=== PATIENT | female | born 1945 | race Caucasian/White ===

== ENCOUNTER → 2018-03-29 10:19 | Outpatient (CLI) | payer MEDICARE, OTHER, SELFPAY | PROVIDERS: PCP Internal Medicine; Visit Provider Physician Assistant | DX: R19.7 Diarrhea, unspecified (principal) ==

== ENCOUNTER 2018-05-29 21:06 | Emergency (ER) | payer MEDICARE, OTHER, SELFPAY ==
[2018-05-29 21:12] VITALS: BP 233/108; PULSE 86; RESP 15; TEMP 36.9; O2SAT 100; BMI 18.6
--- NOTE | 2018-05-29 21:31 | ED.SKABFB ---
HPI - Skin/Abscess/Foreign Bdy <MADDY Jackson - Last Filed: 05/29/18 22:15> General Chief complaint: Skin/Abscess/Foreign Body Stated complaint: SINUS PROBLEM RASH ON FACE Time Seen by Provider: 05/29/18 21:13 Source: patient Mode of arrival: ambulatory Limitations: no limitations History of Present Illness HPI narrative: 72-year-old female with history hypertension is a nonsmoker here for pain of rash to the right side of her head along the forehead into the right orbit area. She knows this been there for the last couple of days. She reports the rash has a burning sensation to it and is painful. She denies any drainage from the rash. No fever there is no chills Or fevers. She has any other concerns or complaints this time. Positive p.o. intake. No nausea or vomiting. she does report having chickenpox as a child MD complaint: rash Related Data Home Medications Medication Instructions Recorded Confirmed CALCIUM CARBONATE/VITAMIN D3 1 tab PO #0 11/17/12 05/28/18 (Calcium 600 + Vit D 400 Tablet) aspirin 81 mg PO QDAY #0 11/17/12 05/28/18 carvedilol [Coreg] 12.5 mg PO BID #0 11/17/12 05/28/18 estradiol [Estrace] 0.01 % VAGINAL #42.5 gm 11/17/12 05/28/18 losartan [Cozaar] 100 mg #0 08/22/17 05/28/18 Previous Rx's Medication Instructions Recorded acyclovir 800 mg PO 5XD #35 tab 05/29/18 Allergies Allergy/AdvReac Type Severity Reaction Status Date / Time Opioids - Morphine Analogues AdvReac Mild N/V Verified 05/29/18 21:12 [OPIOIDS - MORPHINE ANALOGUES] Review of Systems <MADDY Jackson - Last Filed: 05/29/18 22:15> Constitutional Denies chills, Denies fever(s), Denies lethargy and Denies weakness Eyes Denies change in vision, Denies eye discharge, Denies irritation and Denies loss of vision ENT Ears, Nose, Mouth, and Throat: Denies change in voice, Denies neck pain and Denies sore throat Cardiovascular Denies chest pain, Denies irregular heart rhythm, Denies lightheadedness, Denies palpitations, Denies dyspnea, Denies dyspnea on exertion and Denies orthopnea Respiratory Denies cough, Denies dyspnea, Denies dyspnea on exertion and Denies wheezing Gastrointestinal Gastrointestinal: Denies abdominal pain, Denies change in bowel habits, Denies diarrhea, Denies nausea and Denies vomiting Genitourinary Denies hematuria, Denies flank pain, Denies urinary incontinence and Denies urinary urgency Musculoskeletal Denies neck pain Integumentary/Breasts Comments: rash to right face and forehead Neurologic Denies confusion, Denies loss of vision and Denies weakness Psychiatric Denies anxiety, Denies confusion, Denies depression, Denies homicidal ideation and Denies suicidal ideation Endocrine Denies palpitations Allergic/Immunologic Denies wheezing Exam <MADDY Jackson - Last Filed: 05/29/18 22:15> Initial Vital Signs Initial Vital Signs: Vital Signs Temperature 98.4 F 05/29/18 21:12 Pulse Rate 86 05/29/18 21:12 Respiratory Rate 15 05/29/18 21:12 Blood Pressure 233/108 H 05/29/18 21:12 Pulse Oximetry 100 05/29/18 21:12 Const General: cooperative and well developed Nutritional Appearance: well nourished Orientation: alert, awake, oriented x3 and not confused HENMO Mouth: oral mucosae normal and moist mucous membranes Eyes Conjunctivae: conjunctivae normal Sclera: sclerae normal Pupils: PERRL EOM: EOM intact bilaterally Other: fluorescein exam was obtained and was negative for any corneal erosion no dendritic lesions Neck Neck: normal visual inspection, trachea midline, No lymphadenopathy, No midline deformity and No JVD Lymphatic: No lymphedema Chest Chest: normal inspection of the chest Resp Effort & Inspection: normal respiratory effort, able to speak in complete sentences, no respiratory distress and no use of accessory muscles Auscultation: clear to auscultation bilaterally, no rales, no rhonchi and no wheezes Cardio Rate: regular rate Rhythm: regular rhythm Heart Sounds: no click, no gallops, no murmurs and no rubs Pulses: normal peripheral pulses Skin General: jaundice Other: vesicular rash to the right side of the face forehead and into the scalp. no open lesions. <Steven Echavarria DO - Last Filed: 05/29/18 22:56> Initial Vital Signs Initial Vital Signs: Vital Signs Temperature 98.4 F 05/29/18 21:12 Pulse Rate 86 05/29/18 21:12 Respiratory Rate 15 05/29/18 21:12 Blood Pressure 233/108 H 05/29/18 21:12 Pulse Oximetry 100 05/29/18 21:12 Course <MADDY Jackson - Last Filed: 05/29/18 22:15> Orders Ordered: Discontinued Medications Proparacaine HCl (Parcaine 0.5% Ophth Michelle) 1 drops EYE-RIGHT NOW ONE Stop: 05/29/18 21:30 Last Admin: 05/29/18 21:32 Dose: 1 drop Vital Signs - 8 hr 05/29/18 21:12 05/29/18 21:57 Temperature 98.4 F Pulse Rate 86 Respiratory Rate 15 Blood Pressure 233/108 H 202/108 H Pulse Oximetry 100 <Steven Echavarria DO - Last Filed: 05/29/18 22:56> Orders Ordered: Discontinued Medications Proparacaine HCl (Parcaine 0.5% Ophth Michelle) 1 drops EYE-RIGHT NOW ONE Stop: 05/29/18 21:30 Last Admin: 05/29/18 21:32 Dose: 1 drop Vital Signs - 8 hr 05/29/18 21:12 05/29/18 21:57 Temperature 98.4 F Pulse Rate 86 Respiratory Rate 15 Blood Pressure 233/108 H 202/108 H Pulse Oximetry 100 MDM - Skin/Abscess/Foreign Bdy <MADDY Jackson - Last Filed: 05/29/18 22:15> MDM Narrative Medical decision making narrative: vescicular rash to the right side of face forehead and scalp over to a midline forehead and into the bridge of the nose does not cross the midline. Signs and symptoms present as shingles to the face. Fluorescein exam was obtained no involvement of the eyeball is appreciated at this time. She is placed on acyclovir. Follow up with primary care provider next week. [id number] ibuprofen as needed for any discomfort. For any worsening symptoms return to the emergency room. Discharge Plan Departure Patient Disposition: Home Clinical Impression: Herpes zoster Discharge Date/Time: 05/29/18 21:55 Interventions: ED Discharge Assessment Last Done: 05/29/18 21:57 Instructions: DI for Shingles Activity Restrictions/Additional Instructions: signs and symptoms presents as shingles to the right face. UR placed on antiviral medication called acyclovir use as directed. Follow up with her primary care provider next week. Use [id number] ibuprofen as needed for any discomfort. For any worsening symptoms return to the emergency room. Prescriptions: New acyclovir 800 mg tablet 800 mg PO 5XD Qty: 35 RF: 0 No Action carvedilol [Coreg] 12.5 MG tablet 12.5 mg PO BID Qty: 0 RF: 0 aspirin 81 MG tablet,delayed release (DR/EC) 81 mg PO QDAY Qty: 0 RF: 0 estradiol [Estrace] 0.01 % cream 0.01 % Vaginal Qty: 42.5 RF: 0 CALCIUM CARBONATE/VITAMIN D3 (Calcium 600 + Vit D 400 Tablet) 1 tab PO Qty: 0 RF: 0 losartan [Cozaar] 100 MG tablet 100 mg Qty: 0 RF: 0 Referrals: Verona Ocampo MD [Primary Care Provider] - <Steven Echavarria DO - Last Filed: 05/29/18 22:56> Cosign ED Attending Candyature Attestation: I was available for consultation during this patient's emergency department encounter
[2018-05-29] MEDS: PROPARACAINE 0.5% OPHTH SOL 1 DROPS EYE-RIGHT (21:32)
[2018-05-29 21:57] VITALS: BP 202/108
== END 2018-05-29 21:55 | disposition home or self-care (01) ==
PROVIDERS: Emergency Provider Nurse Practitioner Family; PCP Internal Medicine
DX: B02.9 Zoster without complications (principal)
CPT/HCPCS: 99282

== ENCOUNTER → 2019-04-21 14:32 | Outpatient (CLI) | payer MEDICARE, OTHER, SELFPAY ==
--- NOTE | 2019-04-21 14:37 | DI.MG.S_ITS ---
BILATERAL DIGITAL SCREENING MAMMOGRAM 3D/2D WITH CAD: 04/21/2019 CLINICAL: Routine screening. Comparison is made to exams dated: 04/14/2018 mammogram, 04/09/2017 mammogram, and 04/08/2016 mammogram - [facility]. The tissue of both breasts is predominantly fatty. Current study was also evaluated with a Computer Aided Detection (CAD) system. There are benign vascular calcifications in both breasts. No significant masses, calcifications, or other findings are seen in either breast. There has been no significant interval change. IMPRESSION: There is no mammographic evidence of malignancy. A 1 year screening mammogram is recommended. This exam was interpreted at Station ID: [id number]. NOTE: For mammograms, a report in lay terms will be sent to the patient. Approximately 15% of breast malignancies will not be visualized mammographically. In the management of a palpable breast mass, a negative mammogram must not discourage biopsy of a clinically suspicious lesion. Electronically Signed By: Shiv quigley/kaylee:04/21/2019 16:32:49 letter sent: Normal Exam ACR BI-RADS Category 2: Benign Finding(s) 3342F
== END ==
PROVIDERS: PCP Student in an Organized Health Care Education/Training Program; Visit Provider Student in an Organized Health Care Education/Training Program
DX: Z12.31 Encounter for screening mammogram for malignant neoplasm of breast (principal); M81.0 Age-related osteoporosis without current pathological fracture; Z78.0 Asymptomatic menopausal state; Z91.89 Other specified personal risk factors, not elsewhere classified
CPT/HCPCS: 77063; 77067; 77080

== ENCOUNTER → 2019-05-08 09:17 | Outpatient (CLI) | payer MEDICARE, OTHER, SELFPAY ==
[2019-05-08 09:57] LABS: Alanine Aminotransferase 14 IU/L (<35); Albumin 4.5 g/dL (3.5-5.0); Albumin Globulin Ratio 1.4 (1.0-2.8); Alkaline Phosphatase 93 U/L (38-126); Aspartate Aminotransferase 30 IU/L (14-36); BUN Creatinine Ratio 15.7 (6-22); Bilirubin Total 0.7 mg/dL (0.2-1.3); Blood Urea Nitrogen 11 mg/dL (7-17); Calcium 9.6 mg/dL (8.4-10.2); Carbon Dioxide 27 mmol/L (22-32); Chloride 101 mmol/L (98-107); Cholesterol 251 mg/dL (140-199); Estimated Glomerular Filt Rate > 60.0 mL/min (>60); Globulin 3.3 g/dL (1.7-4.1); Glucose 128 mg/dL (80-110); HDL Cholesterol 40 mg/dL (40-60); HEMOLYSIS < 15 (0-50); LDL Cholesterol Calculated 182 mg/dL (<100); Potassium 4.6 mmol/L (3.4-5.1); Sodium 137 mmol/L (137-145); Total Protein 7.8 g/dL (6.3-8.2); Triglycerides 145 mg/dL (35-150)
[2019-05-08 11:04] LABS: Vitamin D 25 Hydroxy (D3) 45.3 ng/mL (30.0-100.0)
== END ==
PROVIDERS: PCP Student in an Organized Health Care Education/Training Program; Visit Provider Student in an Organized Health Care Education/Training Program
DX: E55.9 Vitamin D deficiency, unspecified (principal); Z78.0 Asymptomatic menopausal state; Z91.89 Other specified personal risk factors, not elsewhere classified; E78.2 Mixed hyperlipidemia; G43.909 Migraine, unspecified, not intractable, without status migrainosus; I10 Essential (primary) hypertension; Z79.899 Other long term (current) drug therapy
CPT/HCPCS: 36415; 80053; 80061; 82306

== ENCOUNTER 2020-07-01 13:47 | Inpatient (IN) | payer MEDICARE, OTHER, SELFPAY ==
[2020-07-01] VITALS (33 sets, daily range): BP systolic 134–202; BP diastolic 69–101; PULSE 67–85; RESP 11–22; TEMP 36.1–37.3; O2SAT 94–100; BMI 17.8
--- NOTE | 2020-07-01 14:04 | DI.CT.S_ITS ---
PROCEDURE: CT STROKE INDICATIONS: CODE STROKE TECHNIQUE: Noncontrast 4.5 mm thick angled axial sections acquired from the foramen magnum to the vertex, with coronal reformats. For radiation dose reduction, the following was used: automated exposure control, adjustment of mA and/or kV according to patient size. COMPARISON: [facility], , BRAIN WITHOUT CONTRAST, 05/13/2017, 14:57. FINDINGS: Image quality: Excellent. CSF spaces: Basal cisterns are patent. No extra-axial fluid collections. The ventricles are symmetric in size and shape. Brain: No intracranial bleeds or masses. There is cerebral volume loss for age, with resultant ventricular and sulcal prominence. There are periventricular and deep white matter chronic small vessel ischemic changes. There is intracranial internal carotid artery atherosclerosis. 13 mm low-attenuation focus within the left basal ganglia. This was not present in 2017. Skull and face: Calvarium and visualized facial bones appear intact, without suspicious lesions. Sinuses: Visualized sinuses and mastoids are clear. IMPRESSION: 1. Low-attenuation focus within the left basal ganglia, new compared to 2017. Appearance is suggestive of ischemia, although not classic appearing for chronic ischemia. Recommend correlation time on a patient's symptoms, as appearance is more suggestive of subacute timeline. MRI is recommended for further evaluation to further delineating characterize. The above findings were discussed with Dr. Alice Morris on 07/01/2020 at 2:32 p.m.. This study fulfills neurological imaging criteria for inclusion or exclusion of acute stroke therapies based on available published neurological guidelines. Dictated by: Susan Fernandez M.D. on 07/01/2020 at 14:32 Approved by: Susan Fernandez M.D. on 07/01/2020 at 14:40
--- NOTE | 2020-07-01 14:04 | DI.RAD.S_ITS ---
PROCEDURE: XR CHEST 1V INDICATIONS: Possible stroke TECHNIQUE: One view of the chest was acquired. COMPARISON: None. FINDINGS: Surgical changes and devices: None. Lungs and pleura: Lungs are clear. No pleural effusions or pneumothorax. Mediastinum: Mediastinal contours appear normal. Heart size is normal. Bones and chest wall: No suspicious bony lesions. Overlying soft tissues appear unremarkable. IMPRESSION: No acute pulmonary process. Dictated by: Susan Fernandez M.D. on 07/01/2020 at 14:40 Approved by: Susan Fernandez M.D. on 07/01/2020 at 14:46
--- NOTE | 2020-07-01 14:09 | ED.NEUROSD ---
HPI - Neuro Symptoms/Deficit General Chief Complaint: Neuro Symptoms/Deficit Stated Complaint: SYNCOPE Time Seen by Provider: 07/01/20 14:05 History of Present Illness HPI Narrative: 74-year-old woman with a history of hypertension was standing in front of her microwave at noon today when she had a syncopal episode and slumped to the floor. Her daughter was there and did not note seizure activity or acute head injury. She has no previous history of cardiac disease or stroke. Has been in her usual state of health until events of today. Daughter reports no recent fevers, cough, chest pain, weakness. When daughter went to check on her on the floor she seemed confused but was able to get up and stand. Daughter brought her into the emergency department with complaints of continued confusion. On Anticoagulants: No Related Data Home Medications Medication Instructions Recorded Confirmed losartan 25 mg PO DAILY 07/01/20 07/01/20 Previous Rx's Medication Instructions Recorded carvedilol 12.5 mg tablet 12.5 mg PO BID #180 tab 06/22/20 Allergies Allergy/AdvReac Type Severity Reaction Status Date / Time [id number]-[id number] Reductase AdvReac Intermediate muscle Verified 06/22/20 11:33 Inhibitor pain, nausea Opioids - Morphine Analogues AdvReac Mild N/V Verified 06/22/20 11:33 [OPIOIDS - MORPHINE ANALOGUES] Review of Systems Review of Systems Narrative: Remainder of review of systems including constitutional, ENT, cardiovascular, respiratory, GI, , musculoskeletal, skin, neurologic and psychiatric systems reviewed and are unremarkable except as noted in HPI. Hematologic/Lymphatic On Anticoagulants: No Patient History Medical History Anxiety Chicken pox Measles Migraines Recurrent sinusitis Vertigo Surgical History History of tonsillectomy Status post breast biopsy Social History Smoking Status: Never smoker Smoking Status: Never smoker alcohol intake frequency: 0-2 drinks per day Substance Use Type: does not use Exam Narrative Exam Narrative: General: Healthy appearing, in no acute distress. Confused and unable to participate in history taking HEENT: Moist mucous membranes, normal sclera with reactive pupils, Neck: No JVD, supple Respiratory: Lungs are clear to auscultation, no wheezing no rales no rhonchi. Full and symmetrical air movement Cardiac: Regular rate and rhythm no murmurs no bruits Abdomen: Soft nontender good bowel tones, no flank pain Skin: Warm and dry, no rashes Neurologic: Confused, flattening of the right nasal labial fold, mild aphasia without significant dysarthria. She is too confused to fully evaluate visual dumont. There is no sensory or obvious asymmetric motor deficits Extremities: No trauma, well perfused Psych: Cooperative, appropriate insight and affect NIH Stroke Scale/Score (NIHSS) from [facility] [email or web address] on 07/01/2020 RESULT SUMMARY: 5 points NIH Stroke Scale INPUTS: 1A: Level of consciousness ?> 1 = Arouses to minor stimulation 1B: Ask month and age ?> 1 = 0 questions right 1C: 'Blink eyes' & 'squeeze hands' ?> 0 = Performs both tasks 2: Horizontal extraocular movements ?> 0 = Normal 3: Visual dumont ?> 0 = No visual loss 4: Facial palsy ?> 1 = Minor paralysis (flat nasolabial fold, smile asymmetry) 5A: Left arm motor drift ?> 0 = No drift for 10 seconds 5B: Right arm motor drift ?> 0 = No drift for 10 seconds 6A: Left leg motor drift ?> 0 = No drift for 5 seconds 6B: Right leg motor drift ?> 0 = No drift for 5 seconds 7: Limb Ataxia ?> 0 = No ataxia 8: Sensation ?> 0 = Normal; no sensory loss 9: Language/aphasia ?> 0 = Mild-moderate aphasia: some obvious changes, without significant limitation 10: Dysarthria ?> 0 = Normal 11: Extinction/inattention ?> 0 = No abnormality =4 2:[address] improved LOC =3 Initial Vital Signs Initial Vital Signs: Vital Signs Temperature 97.6 F 07/01/20 14:03 Pulse Rate 75 07/01/20 14:03 Respiratory Rate 16 07/01/20 14:03 Blood Pressure 202/98 H 07/01/20 14:03 Pulse Oximetry 97 07/01/20 14:03 Course Orders Ordered: ED Orders 07/01/20 14:04 CT Stroke Stat XR chest 1V Stat EKG-12 Lead Stat 07/01/20 14:05 Complete Blood Count AUTO DIFF Stat Comprehensive Metabolic Panel Stat Partial Thromboplastin Time Stat Prothrombin Time INR Stat Troponin & CK Cardiac Panel Stat 07/01/20 14:13 CT angio head and neck Stat 07/01/20 15:10 COVID19 Stat 07/01/20 16:00 UA Complete [Urinalysis and Microscopic] Stat Urine Drug Screen, Rapid Stat Discontinued Medications Alteplase, Recombinant (Alteplase 100 Mg Vial) 43.8 mg IV NOW ONE Stop: 07/01/20 14:46 Last Admin: 07/01/20 15:05 Dose: Not Given Documented by: GABRIELLE Vital Signs Vital signs: Vital Signs - 8 hr 07/01/20 14:03 07/01/20 14:06 07/01/20 14:12 Temperature 97.6 F Pulse Rate 75 75 75 Respiratory Rate 16 16 Blood Pressure 202/98 H Pulse Oximetry 97 100 07/01/20 14:29 07/01/20 14:30 07/01/20 14:40 Temperature Pulse Rate 71 73 72 Respiratory Rate 18 Blood Pressure 192/88 H 182/79 H 187/87 H Pulse Oximetry 100 100 99 07/01/20 14:45 07/01/20 14:50 07/01/20 15:00 Temperature Pulse Rate 78 71 68 Respiratory Rate 22 22 18 Blood Pressure 185/97 H 165/90 H Pulse Oximetry 98 99 07/01/20 15:10 07/01/20 15:15 07/01/20 15:20 Temperature Pulse Rate 67 69 70 Respiratory Rate 17 15 22 Blood Pressure 164/91 H 151/83 H Pulse Oximetry 99 97 98 07/01/20 15:30 07/01/20 15:40 07/01/20 15:45 Temperature Pulse Rate 70 70 70 Respiratory Rate 14 11 L 13 Blood Pressure 167/91 H 170/92 H Pulse Oximetry 97 97 97 07/01/20 15:50 07/01/20 16:05 07/01/20 16:06 Temperature Pulse Rate 73 73 73 Respiratory Rate 12 19 12 Blood Pressure 169/93 H 194/94 H Pulse Oximetry 97 94 99 07/01/20 16:10 07/01/20 16:15 07/01/20 16:20 Temperature Pulse Rate 71 72 70 Respiratory Rate 14 13 Blood Pressure 176/94 H 170/87 H Pulse Oximetry 100 99 99 07/01/20 16:30 07/01/20 16:40 01/16/21 16:45 Temperature Pulse Rate 85 72 Respiratory Rate Blood Pressure 166/90 H 164/98 H Pulse Oximetry 98 98 07/01/20 16:50 07/01/20 17:00 Temperature Pulse Rate 70 70 Respiratory Rate Blood Pressure 165/93 H 154/85 H Pulse Oximetry 98 97 MDM - Neuro Symptoms/Deficit Medical Records Attestation: I reviewed the patient's medical records. Lab Data Attestation: I reviewed the patient's lab results. Result diagrams: 07/01/20 14:05 07/01/20 14:05 Labs: Lab Results 07/01/20 07/01/20 07/01/20 Range/Units 14:05 14:05 14:05 WBC 6.2 (4.5-11.0) X10^3/uL RBC 4.49 (4.0-5.2) X10^6/uL Hgb 13.0 (12.0-16.0) g/dL Hct 39.6 (36-46) % MCV 88.4 (80-100) fL MCH 29.0 (26-34) PG MCHC 32.8 (30-36) % RDW 15.5 H (11.6-14.8) % Plt Count 246 (150-400) X10^3/uL Neut % (Auto) 64.1 (50-75) % Lymph % (Auto) 23.2 L (25-40) % [place] % (Auto) 11.5 (3-14) % Eos % (Auto) 0.5 L (2-4) % Baso % (Auto) 0.7 (0-2) % Neut # (Auto) 3900 (1943-6722) /uL Lymph # (Auto) 1400 (4549-8394) /uL [place] # (Auto) 700 (0-900) /uL Eos # (Auto) 0 (0-450) /uL Baso # (Auto) 0 (0-100) /uL PT 13.4 H (10.1-12.7) SECONDS INR 1.2 (0.9-1.3) APTT 28 (26.4-36.2) SECONDS Sodium 136 L (137-145) mmol/L Potassium 3.7 (3.4-5.1) mmol/L Chloride 101 (98-107) mmol/L Carbon Dioxide 30 (22-32) mmol/L BUN 18 H (7-17) mg/dL Creatinine 0.86 (0.52-1.04) mg/dL Estimated GFR > 60.0 (>60) mL/min BUN/Creatinine Ratio 20.9 (6-22) Glucose 147 H (80-110) mg/dL Calcium 9.5 (8.4-10.2) mg/dL Total Bilirubin 0.9 (0.2-1.3) mg/dL AST 40 H (14-36) IU/L ALT 22 (<35) IU/L Alkaline Phosphatase 97 (38-126) U/L Total Creatine Kinase 162 H (30-135) U/L CK-MB (CK-2) 1.54 (<2.37) ng/mL CK-MB (CK-2) Rel Index 1.0 L (1.5-5.0) % Troponin I 0.014 (0.01-0.034) ng/mL Total Protein 8.4 H (6.3-8.2) g/dL Albumin 4.7 (3.5-5.0) g/dL Globulin 3.7 (1.7-4.1) g/dL Albumin/Globulin Ratio 1.3 (1.0-2.8) Urine Color Urine Appearance Urine pH (4.5-8.0) Ur Specific [place] (1.000-1.035) Urine Protein (Negative) Urine Glucose (UA) (Negative) g/dL Urine Ketones (NEGATIVE) Urine Occult Blood (Negative) Urine Nitrate (Negative) Urine Bilirubin (NEGATIVE) Urine Urobilinogen (0.2) E.U./dL Ur Leukocyte Esterase (NEGATIVE) Urine RBC (0-5/HPF) Urine WBC (0-5/HPF) Ur Squamous Epith Cells (0-5/HPF) Urine Bacteria (None) Hyaline Casts (None) Ur Culture Indicated? U Opiates 300ng/mL cut (Negative) Ur Oxycodone Screen (Negative) Urine Methadone Screen (Negative) Ur Barbiturates Screen (Negative) U Tricyclic Antidepress (Negative) Ur Phencyclidine Scrn (Negative) Ur Amphetamines Screen (Negative) U Methamphetamines Scrn (Negative) Ur MDMA Scrn (Ecstasy) (Negative) U Benzodiazepines Scrn (Negative) Urine Cocaine Screen (Negative) U Marijuana (THC) Screen (Negative) SARS-CoV-2 (PCR) (Negative) 07/01/20 07/01/20 07/01/20 Range/Units 15:10 16:00 16:00 WBC (4.5-11.0) X10^3/uL RBC (4.0-5.2) X10^6/uL Hgb (12.0-16.0) g/dL Hct (36-46) % MCV (80-100) fL MCH (26-34) PG MCHC (30-36) % RDW (11.6-14.8) % Plt Count (150-400) X10^3/uL Neut % (Auto) (50-75) % Lymph % (Auto) (25-40) % [place] % (Auto) (3-14) % Eos % (Auto) (2-4) % Baso % (Auto) (0-2) % Neut # (Auto) (0959-4041) /uL Lymph # (Auto) (7976-6951) /uL [place] # (Auto) (0-900) /uL Eos # (Auto) (0-450) /uL Baso # (Auto) (0-100) /uL PT (10.1-12.7) SECONDS INR (0.9-1.3) APTT (26.4-36.2) SECONDS Sodium (137-145) mmol/L Potassium (3.4-5.1) mmol/L Chloride (98-107) mmol/L Carbon Dioxide (22-32) mmol/L BUN (7-17) mg/dL Creatinine (0.52-1.04) mg/dL Estimated GFR (>60) mL/min BUN/Creatinine Ratio (6-22) Glucose (80-110) mg/dL Calcium (8.4-10.2) mg/dL Total Bilirubin (0.2-1.3) mg/dL AST (14-36) IU/L ALT (<35) IU/L Alkaline Phosphatase (38-126) U/L Total Creatine Kinase (30-135) U/L CK-MB (CK-2) (<2.37) ng/mL CK-MB (CK-2) Rel Index (1.5-5.0) % Troponin I (0.01-0.034) ng/mL Total Protein (6.3-8.2) g/dL Albumin (3.5-5.0) g/dL Globulin (1.7-4.1) g/dL Albumin/Globulin Ratio (1.0-2.8) Urine Color Yellow Urine Appearance Clear Urine pH 7.0 (4.5-8.0) Ur Specific [place] <=1.005 (1.000-1.035) Urine Protein Negative (Negative) Urine Glucose (UA) Negative (Negative) g/dL Urine Ketones Negative (NEGATIVE) Urine Occult Blood Trace-lysed (Negative) Urine Nitrate Negative (Negative) Urine Bilirubin Negative (NEGATIVE) Urine Urobilinogen 0.2 (0.2) E.U./dL Ur Leukocyte Esterase Negative (NEGATIVE) Urine RBC None seen (0-5/HPF) Urine WBC None seen (0-5/HPF) Ur Squamous Epith Cells 0-1 /hpf (0-5/HPF) Urine Bacteria None seen (None) Hyaline Casts 0-1/lpf (None) Ur Culture Indicated? Cult not indicated U Opiates 300ng/mL cut Negative (Negative) Ur Oxycodone Screen Negative (Negative) Urine Methadone Screen Negative (Negative) Ur Barbiturates Screen Negative (Negative) U Tricyclic Antidepress Negative (Negative) Ur Phencyclidine Scrn Negative (Negative) Ur Amphetamines Screen Negative (Negative) U Methamphetamines Scrn Negative (Negative) Ur MDMA Scrn (Ecstasy) Negative (Negative) U Benzodiazepines Scrn Negative (Negative) Urine Cocaine Screen Negative (Negative) U Marijuana (THC) Screen Negative (Negative) SARS-CoV-2 (PCR) Negative (Negative) Point of Care Testing Glucose POC [address] scan - head: Radiologist's Impression: FINDINGS: Surgical changes and devices: None. Lungs and pleura: Lungs are clear. No pleural effusions or pneumothorax. Mediastinum: Mediastinal contours appear normal. Heart size is normal. Bones and chest wall: No suspicious bony lesions. Overlying soft tissues appear unremarkable. IMPRESSION: No acute pulmonary process. Dictated by: Susan Fernandez M.D. on 07/01/2020 at 14:40 ECG Data Attestation: I personally reviewed and interpreted this ECG as follows: Interpretation: Sinus rhythm at a rate of 75 Normal interval, normal axis No acute ischemic changes MDM Narrative Medical decision making narrative: 74-year-old woman with syncopal episode at noon today and confusion afterward. On further questioning with her daughter she did not actually see the episode. When she went in to check on her mom she describes her as shaking and as she went to sit up continued to lean toward the right side. Initial NIH on arrival was 3 and on re-evaluation with Neurology on tele stroke and after CT scan was done she is much more alert and scores a 2. Radiologist calls and reports left basal gangliar finding that could be a subacute stroke but could also be a chronic finding. Given low NIH score, improving clinical septum and uncertain diagnosis, in coordination with tele Stroke Neurology , we decided against tPA. Patient will need hospital admission, continued medical workup and MRI for further workup. Care is reviewed with her who has additional history details to offer. He notes that for the past 3-4 days she has been having significant behavioral changes with dramatic decrease in eating, increased confusion and increased global weakness that he seems to believe all of her changes had an acute onset. Discharge Plan Departure Patient Disposition: Admitted As Inpatient Clinical Impression: Stroke Qualifiers: CVA mechanism: unspecified Qualified Code(s): I63.9 - Cerebral infarction, unspecified Admit Date/Time: 07/01/20 17:03 Admit Provider: Nikki Thomas
--- NOTE | 2020-07-01 14:13 | DI.CT.S_ITS ---
PROCEDURE: CT ANGIO HEAD AND NECK INDICATIONS: acute confusion, Right facial weakness. Last well 1200 TECHNIQUE: After the administration of intravenous contrast, 1 mm thick sections acquired from the aortic arch through the [place] of [place]. Post-contrast 4.5 mm thick sections then re-acquired from the foramen magnum to the vertex. 3-dimensional gbcmfwr-clxcthmae-jqomkieuqf (MIP) and/or volume rendering reformats were acquired of the central intracranial vasculature and neck separately. COMPARISON: [facility], CT, CT STROKE, 07/01/2020, 14:05. FINDINGS: Image quality: Excellent. BRAIN: The ventricular system and cortical sulci demonstrate atrophy, consistent for the patient's stated age. There are areas of hypodensity within the periventricular and subcortical white matter. There is no acute intra-or extra axial fluid collection. Unchanged appearance of low-attenuation focus within the left basal ganglia. No acute hemorrhage, mass lesion or midline shift. Brainstem is unremarkable. Globes are symmetrical. Sinuses are aerated. Osseous structures are intact. Sinuses: Sinuses and mastoids are clear. HEAD CT ANGIOGRAPHY: Anterior circulation: Intracranial internal carotid arteries are normal in size and flow. The flow within the paired anterior cerebral arteries is normal and symmetric. The flow within the middle cerebral arteries is normal and symmetric. The anterior communicating artery is seen. No aneurysms are seen. Posterior circulation: The posterior circulation demonstrates a left vertebral artery dominance. Basilar artery and posterior cerebral arteries demonstrate no areas of hemodynamically significant stenosis, vascular occlusion or aneurysmal dilation. Posterior communicating arteries are within normal limits. NECK CT ANGIOGRAPHY: The origins of the left and right common, internal and external carotid arteries demonstrate no areas of hemodynamically significant stenosis, vascular occlusion or aneurysmal dilation. Origins of the left and right vertebral arteries demonstrate no areas of hemodynamically significant stenosis, vascular occlusion or aneurysmal dilation. Aortic arch demonstrates conventional anatomy. Limited, visualized portions of the subclavian vasculature are unremarkable. IMPRESSION: 1. Unchanged focus of low attenuation within left basal ganglia as previously noted suspicious for subacute ischemia. MRI is recommended for further characterization. 2. No areas of hemodynamically significant stenosis, vascular occlusion or aneurysmal dilation within the anterior or posterior circulation. 3. No areas of hemodynamically significant stenosis, vascular occlusion or aneurysmal dilation within the neck vasculature. Any quantitative measurements of stenosis were performed using NASCET criteria. Dictated by: Susan Fernandez M.D. on 07/01/2020 at 14:57 Approved by: Susan Fernandez M.D. on 07/01/2020 at 15:01
[2020-07-01 14:17] LABS: Add Manual Diff / Slide Review NO; Basophils Absolute Auto 0 /uL (0-100); Basophils Percent Auto 0.7 % (0-2); Eosinophils Absolute Auto 0 /uL (0-450); Eosinophils Percent Auto 0.5 % (2-4); Hematocrit 39.6 % (36-46); Lymphocytes Absolute Auto 1400 /uL (1100-4500); Lymphocytes Percent Auto 23.2 % (25-40); Mean Corpuscular HGB Conc 32.8 % (30-36); Mean Corpuscular Volume 88.4 fL (80-100); Monocytes Absolute Auto 700 /uL (0-900); Monocytes Percent Auto 11.5 % (3-14); Neutrophils Absolute Auto 3900 /uL (1500-7000); Neutrophils Percent Auto 64.1 % (50-75); Platelet Count 246 X10^3/uL (150-400); Red Blood Cell Count 4.49 X10^6/uL (4.0-5.2); Red Cell Distribution Width 15.5 % (11.6-14.8); White Blood Cell Count 6.2 X10^3/uL (4.5-11.0)
[2020-07-01 14:24] LABS: INR 1.2 (0.9-1.3); Prothrombin Time 13.4 SECONDS (10.1-12.7)
[2020-07-01 14:26] LABS: PTT Partial Thromboplastin Tim 28 SECONDS (26.4-36.2)
[2020-07-01 14:28] LABS: Alanine Aminotransferase 22 IU/L (<35); Albumin 4.7 g/dL (3.5-5.0); Albumin Globulin Ratio 1.3 (1.0-2.8); Alkaline Phosphatase 97 U/L (38-126); Aspartate Aminotransferase 40 IU/L (14-36); BUN Creatinine Ratio 20.9 (6-22); Bilirubin Total 0.9 mg/dL (0.2-1.3); Blood Urea Nitrogen 18 mg/dL (7-17); Calcium 9.5 mg/dL (8.4-10.2); Carbon Dioxide 30 mmol/L (22-32); Chloride 101 mmol/L (98-107); Creatine Kinase 162 U/L (30-135); Estimated Glomerular Filt Rate > 60.0 mL/min (>60); Globulin 3.7 g/dL (1.7-4.1); Glucose 147 mg/dL (80-110); HEMOLYSIS < 15 (0-50); Potassium 3.7 mmol/L (3.4-5.1); Sodium 136 mmol/L (137-145); Total Protein 8.4 g/dL (6.3-8.2)
[2020-07-01 14:39] LABS: Troponin I 0.014 ng/mL (0.01-0.034)
[2020-07-01 14:43] LABS: Creatine Kinase MB 1.54 ng/mL (<2.37)
[2020-07-01 15:36] LABS: COVID19 -Nasal RAPID Negative (Negative)
[2020-07-01 16:14] LABS: Bacteria Urine None Seen; RBC Urine None Seen (0-5/HPF); WBC Urine None Seen (0-5/HPF)
[2020-07-01 16:22] LABS: Appearance Urine UA CLEAR; Bilirubin Urine UA NEGATIVE (NEGATIVE); Color Urine UA YELLOW; Glucose Urine UA NEGATIVE (Negative); Ketones Urine UA NEGATIVE (NEGATIVE); Leukocyte Esterase Urine UA NEGATIVE (NEGATIVE); Nitrite Urine UA NEGATIVE (Negative); Occult Blood Urine UA TRACE-LYSED (Negative); Protein Urine UA NEGATIVE (Negative); Specific Gravity Urine UA <=1.005 (1.000-1.035); Urobilinogen Urine UA 0.2 E.U./dL (0.2)
[2020-07-01 16:29] LABS: Culture Indicated Urine Cult Not Indicated; Hyaline Casts Urine 0-1/LPF; Squamous Epithelial Cell Urine 0-1 /HPF (0-5/HPF)
[2020-07-01 16:31] LABS: Ur Creatinine Normal (Normal); Ur Specific Gravity Normal (Normal); Urine pH Normal (Normal)
[2020-07-01 16:32] LABS: UR Morphine/Opiate cutoff 300 Negative (Negative); Urine Amphetamines Negative (Negative); Urine Barbiturates Negative (Negative); Urine Benzodiazepines Negative (Negative); Urine Cocaine Negative (Negative); Urine MDMA Negative (Negative); Urine Methadone Negative (Negative); Urine Methamphetamines Negative (Negative); Urine Oxycodone Negative (Negative); Urine Phencyclidine Negative (Negative); Urine Tetrahydrocannabinol Negative (Negative); Urine Tricyclic Antidepressant Negative (Negative)
--- NOTE | 2020-07-01 20:35 | PM.HP.1 ---
History of Present Illness History of Present Illness Date Patient Seen: 07/01/20 Time Patient Seen: 20:00 Chief complaint: SYNCOPE Narrative: Brittani Morgan is a 74 y.o. female with hypertension, hyperlipidemia was apparently at home in the kitchen and had an unwitnessed fall. Per her , the person that was with her did not seem to feel she lost consciousness and the patient does not remember what happened, nor does she know why she is in the hospital. The patient appears to be confused, and is apparently not very forthcoming, so a history is difficult to obtain from her. History obtained from Krathik, her and from review of her PCP's records. He states she has been gradually declining mentally over the past year, but in the last 3 days, was unable to function at all. His concerns about the patient's short term memory issues were corroborated in a visit with her wellness visit with her PCP in 2019, however she was resistant to further evaluation. When she fell, the person with her at her home called 911. 911 assessed her and advised the family take her to the ED as he said the EMT stated she would get upset at being loaded up into an ambulance and taking her to the hospital. Per records, the patient has severe hyperlipidemia, but did not tolerate statins. In the ED, the CT scan indicated a possible infarct of the basal ganglia. During her stay, her NIH scale was 3, then reassessment was 2. ED Nursing NIH scale was 4. They initially were going to administer tPA, but then decided not to administer due to a low NIH score. Her blood pressure on presentation to the ED was 170/100, then increase to 208/98 and is currently 177/98. Heart rate is 70, respiratory rate 15, oxygen saturation 99% on room air she weighs 53.5 kg with a BMI of 17.8. WBC was largely within normal limits, sodium was 136, the rest of her chemistries with the exception of her glucose was normal, she is prediabetic with a hemoglobin A1c of 6.3 and a glucose of 147 urinalysis and urine tox screen were both negative, COVID-19 PCR was negative. Patient History Medical History (Updated 07/01/20 @ 21:18 by MADDY Basurto) Anxiety Chicken pox Essential hypertension Hypertensive urgency Measles Migraines Recurrent sinusitis Vertigo Surgical History History of tonsillectomy Status post breast biopsy Family & Social History Family History Mother Memory impairment Father of unknown cause Social History: household members spouse,children Prior Living Arrangements House Safety & Behavioral: Feels Safe in Current Yes Environment Been Physically Hurt or No Threatened By a Person Suicidal Ideation Description None Suicide Plan Description No Plan Tobacco & Substance use: Smoking Status Never smoker alcohol intake never alcohol intake frequency 0-2 drinks per day Substance Use Type does not use Meds Home Medications and Allergies Home Medications Medication Instructions Recorded Confirmed Type carvedilol 12.5 mg tablet 12.5 mg PO BID #180 tab 06/22/20 07/01/20 Rx losartan 25 mg PO DAILY 07/01/20 07/01/20 History Allergies Allergy/AdvReac Type Severity Reaction Status Date / Time Ogghncz-Iug-Luo Reductase AdvReac Intermediate muscle Verified 06/22/20 11:33 Inhibitor pain, nausea Opioids - Morphine Analogues AdvReac Mild N/V Verified 06/22/20 11:33 [OPIOIDS - MORPHINE ANALOGUES] Review of Systems Review of Systems ROS: Yes unobtainable due to mental status Exam Vital Signs (past 8 hours): - 07/01/20 14:03 07/01/20 14:06 07/01/20 14:12 Temperature 97.6 F Pulse Rate 75 75 75 Respiratory Rate 16 16 Blood Pressure 202/98 H Pulse Oximetry 97 100 07/01/20 14:29 07/01/20 14:30 07/01/20 14:40 Temperature Pulse Rate 71 73 72 Respiratory Rate 18 Blood Pressure 192/88 H 182/79 H 187/87 H Pulse Oximetry 100 100 99 07/01/20 14:45 07/01/20 14:50 07/01/20 15:00 Temperature Pulse Rate 78 71 68 Respiratory Rate 22 22 18 Blood Pressure 185/97 H 165/90 H Pulse Oximetry 98 99 07/01/20 15:10 07/01/20 15:15 07/01/20 15:20 Temperature Pulse Rate 67 69 70 Respiratory Rate 17 15 22 Blood Pressure 164/91 H 151/83 H Pulse Oximetry 99 97 98 07/01/20 15:30 07/01/20 15:40 07/01/20 15:45 Temperature Pulse Rate 70 70 70 Respiratory Rate 14 11 L 13 Blood Pressure 167/91 H 170/92 H Pulse Oximetry 97 97 97 07/01/20 15:50 07/01/20 16:05 07/01/20 16:06 Temperature Pulse Rate 73 73 73 Respiratory Rate 12 19 12 Blood Pressure 169/93 H 194/94 H Pulse Oximetry 97 94 99 07/01/20 16:10 07/01/20 16:15 07/01/20 16:20 Temperature Pulse Rate 71 72 70 Respiratory Rate 14 13 Blood Pressure 176/94 H 170/87 H Pulse Oximetry 100 99 99 07/01/20 16:30 07/01/20 16:40 07/01/20 16:45 Temperature Pulse Rate 85 72 Respiratory Rate Blood Pressure 166/90 H 164/98 H Pulse Oximetry 98 98 07/01/20 16:50 07/01/20 17:00 07/01/20 17:10 Temperature Pulse Rate 70 70 73 Respiratory Rate Blood Pressure 165/93 H 154/85 H 151/90 H Pulse Oximetry 98 97 98 07/01/20 17:15 07/01/20 17:20 07/01/20 18:00 Temperature 98.0 F Pulse Rate 72 72 70 Respiratory Rate 15 Blood Pressure 163/95 H 177/98 H Pulse Oximetry 97 98 99 Oxygen Delivery Method Room Air Narrative Exam Narrative: Gen: Alert, oriented, thin 74 y.o. female, NAD HEENT: normocephalic, atraumatic, conjunctiva clear, sclera non-icteric, flattened nasolabial fold, assymetrical tongue thrust, oral mucosa pink and moist Neck: supple, full ROM, no JVD, trachea is midline Resp: Lungs CTA, non-labored breathing CV: RRR, no murmur or rubs Abd: soft, non-tender, normoactive BTs Skin: no lesions or rashes, dry and intact Neuro: Floor nurse NIH was 0. 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 Alert and oriented X w/no focal deficits. Speech is halting appears to have word finding problem, mild garbling, low volume. GCS 14 Extremities: moves all 4 extremities, is ambulatory, negative Rosalia?s sign Psyche: a little evasive. Objective Labs Result Diagrams: 07/01/20 14:05 01/16/21 14:05 Labs: Laboratory Results - last 24 hr 07/01/20 07/01/20 07/01/20 14:05 14:05 14:05 WBC 6.2 RBC 4.49 Hgb 13.0 Hct 39.6 MCV 88.4 MCH 29.0 MCHC 32.8 RDW 15.5 H Plt Count 246 Neut % (Auto) 64.1 Lymph % (Auto) 23.2 L [place] % (Auto) 11.5 Eos % (Auto) 0.5 L Baso % (Auto) 0.7 Neut # (Auto) 3900 Lymph # (Auto) 1400 [place] # (Auto) 700 Eos # (Auto) 0 Baso # (Auto) 0 PT 13.4 H INR 1.2 APTT 28 Sodium 136 L Potassium 3.7 Chloride 101 Carbon Dioxide 30 BUN 18 H Creatinine 0.86 Estimated GFR > 60.0 BUN/Creatinine Ratio 20.9 Glucose 147 H Calcium 9.5 Total Bilirubin 0.9 AST 40 H ALT 22 Alkaline Phosphatase 97 Total Creatine Kinase 162 H CK-MB (CK-2) 1.54 CK-MB (CK-2) Rel Index 1.0 L Troponin I 0.014 Total Protein 8.4 H Albumin 4.7 Globulin 3.7 Albumin/Globulin Ratio 1.3 Urine Color Urine Appearance Urine pH Ur Specific [place] Urine Protein Urine Glucose (UA) Urine Ketones Urine Occult Blood Urine Nitrate Urine Bilirubin Urine Urobilinogen Ur Leukocyte Esterase Urine RBC Urine WBC Ur Squamous Epith Cells Urine Bacteria Hyaline Casts Ur Culture Indicated? U Opiates 300ng/mL cut Ur Oxycodone Screen Urine Methadone Screen Ur Barbiturates Screen U Tricyclic Antidepress Ur Phencyclidine Scrn Ur Amphetamines Screen U Methamphetamines Scrn Ur MDMA Scrn (Ecstasy) U Benzodiazepines Scrn Urine Cocaine Screen U Marijuana (THC) Screen SARS-CoV-2 (PCR) 07/01/20 07/01/20 07/01/20 15:10 16:00 16:00 WBC RBC Hgb Hct MCV MCH MCHC RDW Plt Count Neut % (Auto) Lymph % (Auto) [place] % (Auto) Eos % (Auto) Baso % (Auto) Neut # (Auto) Lymph # (Auto) [place] # (Auto) Eos # (Auto) Baso # (Auto) PT INR APTT Sodium Potassium Chloride Carbon Dioxide BUN Creatinine Estimated GFR BUN/Creatinine Ratio Glucose Calcium Total Bilirubin AST ALT Alkaline Phosphatase Total Creatine Kinase CK-MB (CK-2) CK-MB (CK-2) Rel Index Troponin I Total Protein Albumin Globulin Albumin/Globulin Ratio Urine Color Yellow Urine Appearance Clear Urine pH 7.0 Ur Specific [place] <=1.005 Urine Protein Negative Urine Glucose (UA) Negative Urine Ketones Negative Urine Occult Blood Trace-lysed Urine Nitrate Negative Urine Bilirubin Negative Urine Urobilinogen 0.2 Ur Leukocyte Esterase Negative Urine RBC None seen Urine WBC None seen Ur Squamous Epith Cells 0-1 /hpf Urine Bacteria None seen Hyaline Casts 0-1/lpf Ur Culture Indicated? Cult not indicated U Opiates 300ng/mL cut Negative Ur Oxycodone Screen Negative Urine Methadone Screen Negative Ur Barbiturates Screen Negative U Tricyclic Antidepress Negative Ur Phencyclidine Scrn Negative Ur Amphetamines Screen Negative U Methamphetamines Scrn Negative Ur MDMA Scrn (Ecstasy) Negative U Benzodiazepines Scrn Negative Urine Cocaine Screen Negative U Marijuana (THC) Screen Negative SARS-CoV-2 (PCR) Negative Assessment & Plan Assessment & Plan narrative: Brittani Morgan will be admitted overnight to further ascertain a left basilar CVA. STROKE/TIA Suspected TIA versus stroke, acute, present on admission -Cardiac telemetry -NIH scoring and neuro checks q 4 hours -initiate clopidogrel 75 mg p.o. daily and aspirin 81 mg p.o. daily -MR stroke scheduled for 07/02/20 -Complete Echo with bubble study for 07/02/20 -PT/OT/ST evaluation. Have requested a cognitive evaluation from OT. Hypertension, acute with an admission bp of 170/100, present on admission -Allow for permissive hypertension of 220/110 HR 60 to allow for brain perfusion -She is written for home doses carvedilol 12.5 mg bid and losartan 50 mg po daily HLD -Lipid panel, pending -Atorvastatin 40 mg po at bedtime. Will challenge with this, but she may require a different class of antihyperlipid medication Pre-diabetes with an A1c of 6.3 -Request nutritional consult Risk stratification -Fasting lipid panel penbding VTE prophylaxis: Wells risk score: 0 Enoxaparin 40 mg subQ daily Consults: none Patient is admitted under inpatient status with expected length of stay greater than 2 midnights due to severity of presenting symptoms, risk of adverse event, and complexity of treatment plan. FEN: saline lock, heart healthy diet w/2 grams sodium, BMP and magnesium in the am. Dispo: probable discharge to home Code Status: DNR as discussed with her . Scores GCS [place] coma scale eye opening: Spontaneous [place] coma scale verbal response: Confused [place] coma scale motor response: Obey commands [place] coma scale total score: 14 Quality VTE Deep Vein Thrombosis/Pulmonary Embolism Present on Admission: No
[2020-07-01 20:37] LABS: Hemoglobin A1C% w Est Avg Glu 6.3 % (4.0-6.0)
[2020-07-01] MEDS: ATORVASTATIN 20 MG TABLET 40 MG PO (22:01)
[2020-07-01] MEDS: carvediloL 12.5 MG TABLET PO (22:01)
--- NOTE | 2020-07-01 22:53 | PC.NURSE ---
Admit/Evening Shift Note- Patient arrived to room via wheelchair from ER at 1800. Patient alert and oriented x1, to self. Admit questions done, and home medications reviewed, with patients husbands. Physical assessment and skin check completed. Attempted to oriented patient to bed and bed controls, room lights, phone, bathroom, anf ball saunders/tv remote. Patient will need reoriented as needed. Safety measure in place. call saunders and phone within reach. will contiinue to monitor,
--- NOTE | 2020-07-02 | DI.MRI.S_ITS ---
PROCEDURE: MR STROKE Pre- and post-contrast brain MRI, non-contrast brain MR angiogram, pre- and postcontrast neck MR angiogram INDICATIONS: Stroke symptoms, abnormal CT TECHNIQUE: Brain: Noncontrast axial T1 spin echo, axial T2 fast spin echo, sagittal and axial FLAIR, coronal T2 fast spin echo, axial gradient echo, axial diffusion and ADC through the brain. After the administration of contrast, axial 3D VIBE of the cranial vasculature and brain. Brain MRA: Non-contrast 3-D time of flight MR angiogram, with multiple impgdnd-hdqsqoeel-vpftdfdsdw (MIP) reformats performed. Neck MRA: Axial and sagittal TruFISP through the neck. Coronal dynamic MR angiogram during administration of contrast in the arterial and venous phases, with 3-dimenstional utpkfuf-xbuzxmkyn-tixxwofred (MIP) reformats constructed from subtraction images. COMPARISON: [facility], CT, CT ANGIO HEAD AND NECK, 07/01/2020, 14:05. [facility], CT, CT STROKE, 07/01/2020, 14:05. [facility], MR, BRAIN WITHOUT CONTRAST, 05/13/2017, 14:57. FINDINGS: Image quality: Excellent. BRAIN: CSF spaces: Ventricles are normal in size and shape. Basal cisterns are patent. No extra-axial fluid collections. Brain: There is abnormal diffusion-weighted signal seen within the left centrum semiovale and the left basal ganglia, as on series 21 images 62 through 65. There is associated abnormal dark signal seen on the ADC map. Developing T2 weighted signal can be seen within these regions. No susceptibility artifact is seen to suggest hemorrhagic conversion. Brain parenchymal volume loss is seen. Chronic small vessel ischemic changes are seen. No intracranial bleeds or mass effects. [place]-white matter interface is normal. Brainstem appears normal. Normal intravascular flow voids are present. No abnormal intracranial enhancement. Relatively prominent perivascular spaces are noted. Skull and face: Calvarial marrow signal is normal. Orbits appear normal. Sinuses: Sinuses and mastoids are clear. BRAIN MR ANGIOGRAM: Anterior circulation: Intracranial internal carotid arteries are normal in size and enhancement. The flow within the paired anterior cerebral arteries is normal and symmetric. The flow within the middle cerebral arteries is normal and symmetric. The anterior communicating artery is seen. No stenoses, occlusions, or aneurysms. Posterior circulation: The visualized portions of the vertebral arteries demonstrate normal caliber, and join to form a normal appearing basilar artery. The flow within the posterior cerebral arteries is normal and symmetric. No stenoses, occlusions, or aneurysms. NECK MR ANGIOGRAM: Carotids: Great vessels demonstrate a conventional anatomy as they arise from the aortic arch. The origins of the common carotid arteries appear patent. The calibers and courses of both common carotid arteries are normal. The bifurcation regions appear normal bilaterally. The internal carotid arteries demonstrate normal caliber. Tortuosity is seen of the internal carotid arteries, right worse than left. Posterior circulation: The origins of the vertebral arteries appear patent. More superior portions of both vertebral arteries demonstrate normal caliber. Prominent tortuosity can be seen of the vertebral arteries. Miscellaneous: Subclavian arteries appear patent. Pre-contrast images through the neck show no soft tissue abnormalities. IMPRESSION: BRAIN MRI: There is a subacute infarction seen involving the left basal ganglia and the left centrum semiovale. Note is made of age-appropriate brain parenchymal volume loss and chronic small vessel ischemic changes. No masses or abnormal enhancement can be seen. BRAIN MR ANGIOGRAM: No significant intracranial arterial abnormality is seen. NECK MR ANGIOGRAM: Within the arteries of the neck, no hemodynamically significant stenosis can be seen. Tortuosity of the vertebral arteries and the internal carotid arteries (right worse than left) can be seen. Dictated by: Bay Huynh M.D. on 07/02/2020 at 8:35 Approved by: Bay Huynh M.D. on 07/02/2020 at 8:48
--- NOTE | 2020-07-02 | DI.ECHO.S_ITS ---
[facility] +---------+ : : [address] : : : : [id number] : : : : Phone: [phone] Echocardiogram Report + + :Name: JAMEY SANTOS Study Date: 07/02/2020 Height: 65 in : :[facility] ReadingLocation: Weight: 117 lb : : Gender: Female BSA: 1.6 m2 : :: 1945 Age: 74 yrs BP: 177/98 mmHg: :Reason For Study: CVA : :Ordering Physician: Christiane : :Hospitalist Performed By: Sarah Page : :Referring: FRANCIS HERNANDEZ : + + Interpretation Summary 1) Normal left ventricular thickness, size, wall motion, and systolic function (EF 65-70%). 2) Normal right ventricular size and function. 3) No significant valvular abnormalities. 4) Doppler interrogation and injection of saline echo contrast shows no evidence for an interatrial shunt. 5) There is a trace loculated pericardial effusion (located anteriorly) 6) Severe hypertension during the study (BP 177/98mmHg). 7) No prior Echo available for comparison. Procedure: A two-dimensional transthoracic echocardiogram with color flow and Doppler was performed. The study quality was technically adequate. There is no prior echocardiogram noted for this patient. A saline contrast injection was performed to assess for cardiac shunting. The patient was in normal sinus rhythm during the exam. Left Ventricle: The left ventricle is normal in size and wall thickness. The ejection fraction is estimated to be 65-70%. There are no focal wall motion abnormalities. Right Ventricle: The right ventricle is normal in size and function. Atria: The left atrium is moderately dilated. Right atrial size is normal. Doppler interrogation and injection of saline echo contrast shows no evidence for an interatrial shunt. Mitral Valve: The mitral valve is normal in structure and function. There is mild mitral annular calcification. There is trace mitral regurgitation. Aortic Valve: The aortic valve is trileaflet. The aortic valve opens well. There is no aortic valve stenosis. There is trace aortic regurgitation. Tricuspid Valve: The tricuspid valve is normal in structure and function. There is a trace or physiologic amount of tricuspid regurgitation. Pulmonary artery pressures cannot be estimated because of the lack of a measurable TR jet velocity. Pulmonic Valve: The pulmonic valve is not well visualized. Great Vessels: The aortic root is normal size. The ascending aorta could not be visualized. The pulmonary artery is not well visualized, but is probably normal size. The IVC is of normal diameter and collapses greater than 50% with a sniff. This suggests a low right atrial pressure of 3 mm Hg. Pericardium/ Pleura There is a trace loculated pericardial effusion. There is no pleural effusion. MMode/2D Measurements & Calculations LVIDd: 3.8 cm LVOT diam: 1.8 cm LVIDs: 3.3 cm Ao root diam: 3.3 cm FS: 13.6 % IVSd: 0.78 cm LVPWd: 0.78 cm LV yañez. diameter/BSA (cm/m^2): 2.4 LV sys. diameter/BSA (cm/m^2): 2.1 LA A2 area: 18.9 cm2 RA long axis: 3.9 cm LA A4 area: 13.9 cm2 RA area: 11.4 cm2 LA length (vol): 4.0 cm RA vol: 28.6 ml LA vol: 55.6 ml RA : 18.2 ml/m2 LA vol index: 35.3 ml/m2 RVD1 (basal): 2.9 cm TAPSE: 1.6 cm Doppler Measurements & Calculations Ao V2 max: 118.0 cm/sec LVOT Max Aamir: 101.5 cm/sec Ao V2 mean: 85.5 cm/sec LV V1 max P.1 mmHg Ao max P.6 mmHg LV V1 VTI: 21.0 cm Ao mean P.2 mmHg JARAD(I,D): 2.4 cm2 Ao V2 VTI: 22.7 cm JARAD(V,D): 2.3 cm2 sev ratio: 0.92 JARAD indexed to BSA (cm^2/m^2): 1.5 MV E max aamir: 65.2 cm/sec TR max aamir: 193.5 cm/sec MV A max aamir: 107.8 cm/sec TR max P.0 mmHg MV E/A: 0.60 PA V2 max: 72.3 cm/sec Med Peak E' Aamir: 6.4 cm/sec PA V2 mean: 48.1 cm/sec E/E' med: 10.2 PA mean P.0 mmHg Lat Peak E' Aamir: 7.4 cm/sec PA Accel Time: 0.11 sec E/E' lat: 8.8 E/e' average: 9.5 MV dec time: 0.31 sec SV(LVOT): 54.9 ml Reading Physician:03:12 PM
[2020-07-02 04:53] VITALS: BP 163/77; PULSE 73; RESP 16; TEMP 36.5; O2SAT 98
[2020-07-02 05:10] LABS: Add Manual Diff / Slide Review NO; Basophils Absolute Auto 0 /uL (0-100); Basophils Percent Auto 0.6 % (0-2); Eosinophils Absolute Auto 100 /uL (0-450); Eosinophils Percent Auto 0.8 % (2-4); Hematocrit 37.2 % (36-46); Hemoglobin 12.4 g/dL (12.0-16.0); Lymphocytes Absolute Auto 1900 /uL (1100-4500); Lymphocytes Percent Auto 23.3 % (25-40); Mean Corpuscular HGB Conc 33.4 % (30-36); Mean Corpuscular Hemoglobin 29.2 PG (26-34); Mean Corpuscular Volume 87.4 fL (80-100); Monocytes Absolute Auto 900 /uL (0-900); Monocytes Percent Auto 11.2 % (3-14); Neutrophils Absolute Auto 5300 /uL (1500-7000); Neutrophils Percent Auto 64.1 % (50-75); Platelet Count 222 X10^3/uL (150-400); Red Blood Cell Count 4.26 X10^6/uL (4.0-5.2); Red Cell Distribution Width 15.6 % (11.6-14.8); White Blood Cell Count 8.3 X10^3/uL (4.5-11.0)
[2020-07-02 05:31] LABS: BUN Creatinine Ratio 20.9 (6-22); Blood Urea Nitrogen 14 mg/dL (7-17); Calcium 9.2 mg/dL (8.4-10.2); Carbon Dioxide 30 mmol/L (22-32); Chloride 104 mmol/L (98-107); Estimated Glomerular Filt Rate > 60.0 mL/min (>60); Glucose 107 mg/dL (80-110); HEMOLYSIS < 15 (0-50); Magnesium 2.2 mg/dL (1.6-2.3); Potassium 3.3 mmol/L (3.4-5.1); Sodium 138 mmol/L (137-145)
[2020-07-02 05:32] LABS: Cholesterol 237 mg/dL (140-199); HDL Cholesterol 39 mg/dL (40-60); LDL Cholesterol Calculated 176 mg/dL (<100); Triglycerides 109 mg/dL (35-150)
[2020-07-02 05:46] LABS: TSH w/ Reflex to FT4 1.73 uIU/mL (0.47-4.68)
[2020-07-02 10:13] VITALS: BP 175/91; PULSE 82; RESP 16; TEMP 36.6; O2SAT 98
[2020-07-02 10:42] VITALS: BP 175/91; PULSE 82
[2020-07-02] MEDS: carvediloL 12.5 MG TABLET PO (10:42)
[2020-07-02] MEDS: SODIUM CHLORIDE 0.9% FLUSH 10 ML IV (10:46)
[2020-07-02] MEDS: CLOPIDOGREL 75 MG TABLET PO (10:59)
[2020-07-02] MEDS: ASPIRIN EC 81 MG TABLET PO (10:59)
[2020-07-02] MEDS: ENOXAPARIN 40 MG/0.4 ML SYRINGE SUBCUT (10:59)
[2020-07-02 11:12] VITALS: BP 164/88; PULSE 83
[2020-07-02] MEDS: LOSARTAN 50 MG TABLET PO (11:12)
--- NOTE | 2020-07-02 11:15 | PT.IIE ---
Current Diagnoses Cerebral infarction, unspecified (07/01/20) Surgical History (Last Reviewed 07/01/20 @ 20:38 by MADDY Basurto) History of tonsillectomy Status post breast biopsy Medical History (Last Updated 07/01/20 @ 21:18 by MADDY Basurto) Anxiety Chicken pox Essential hypertension Hypertensive urgency Measles Migraines Recurrent sinusitis Vertigo Physical Therapy Inpatient Evaluation/Re-Eval M1 PT/OT-IP Prior Functional Status Start: 07/02/20 08:14 Freq: NEEDED Status: Active Protocol: Document 07/02/20 11:15 DLM (Rec: 07/02/20 12:40 DL [id number]) Medical Review Prior Functional Status Medical History Reviewed Yes Diet/Fluid Consistency Regular Communication decreased cognitive status per chart notes, her Spouse reports she has a quiet nature Mobility and Gait Independent without device Activities of Daily Living and IADL's Independent, Spouse takes care of advanced ADL's, she takes care of her cats and she likes to paint Social History Household Members spouse,children Living Arrangements House Number of Floors (Floors) One Floor Number of Stairs To Enter/Railing? 3 with rail M2 PT-IP Current Condition Start: 07/02/20 08:14 Freq: NEEDED Status: Active Protocol: Document 07/02/20 11:15 DLM (Rec: 07/02/20 12:40 DL [id number]) Physical Therapy Current Condition Current Condition Evaluation Date 07/02/20 Treatment Diagnosis CVA Onset Date 07/01/20 Precautions Other Precautions fall risk due to new medical issues and cognitive impairments M3 PT-IP Subjective Start: 07/02/20 08:14 Freq: NEEDED Status: Active Protocol: Document 07/02/20 11:15 DLM (Rec: 07/02/20 12:36 DL [id number]) Subjective Physical Therapy Visit Type Type Initial Evaluation Visit Start Time 10:50 Visit Stop Time 11:15 Total Visit Minutes 25 Number of LEAD INFORMATICA DEVELOPER Visits 0 Physical Therapy Visit Comments Patient Comments She recalls that she fell in the kitchen. She denies symptoms today. Patient Goals return home Therapy Pain Assessment Pain When Pain Assessed After Treatment Pain Present Pain Present Denied Pain M4 PT-IP Mobility and Gait Start: 07/02/20 08:14 Freq: NEEDED Status: Active Protocol: Document 07/02/20 11:15 DLM (Rec: 07/02/20 12:36 [facility] [id number]) PT-Bed Mobility Assessment Rolling Level of Assist Independent Supine to Sit Supine to Sit Independent Sit to Supine Sit to Supine Independent Scooting Scooting to Edge of Bed Independent Scooting Up and Down in Bed Independent PT-Transfer Assessment Sit to and From Stand Sit to and from Stand Independent Equipment Transfer Assistive Device None,Gait Belt Transfers Transfer Destination Bed Transfer Technique Stand Step Pivot Transfer Ability Level of Assist Independent Gait Assessment Gait Gait Assistance Required: Independent Distance (Feet) 300 Assistive Devices Assistive Device Gait Belt Stair Climbing Assessment Evaluation Level of Assist On Stairs Independent Devices Stair Climbing Assistive Devices Left Railing Technique/Endurance Stair Climbing Direction Ascend and Descend Stair Climbing Technique Step Over Step Number of Steps Climbed 3 Query Text: Stair Climbing Set # Repetitions (reps) 1 PT-Balance Assessment Sitting Balance and Reactions Static Sitting Balance Ability Normal Dynamic Sitting Balance Ability Normal Standing Balance and Reactions Static Standing Balance Ability Normal Dynamic Standing Balance Ability Good Balance Tests Single Limb Standing right greater than 10 sec, left 5 sec Romberg independent Tandem Standing right LE posterior- 30 sec, left LE posterior- 5 sec Hess Balance Test Score 53/56 Query Text:Score Comments Other Balance Tests/Deviations/Treatment no losses of balance static : standing with head motions M5 PT-IP Objective Assessments Start: 07/02/20 08:14 Freq: NEEDED Status: Active Protocol: Document 07/02/20 11:15 [facility] (Rec: 07/02/20 12:40 [facility] [id number]) Orientation Orientation/Cognition Level of Alertness Alert Orientation Name,Year,Place Language Function Ability No Deficits Noted Safety Awareness Decreased Safety Awareness Memory Description 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,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 Gross Range of Motion Upper Extremity ROM Assessment Within Functional Limits Lower Extremity ROM Assessment Within Functional Limits Strength Upper Extremity Strength Assessment Within Functional Limits Lower Extremity Strength Assessment Within Functional Limits Coordination Assessment Assessment Pronation/Supination Test Normal Performance Foot Tapping Test Minimal Impairment Sensation Assessment Sensation Gross Sensation WNL Muscle Tone Muscle Tone WNL Yes M6 PT-IP Treatment Start: 07/02/20 08:14 Freq: NEEDED Status: Active Protocol: Document 07/02/20 11:15 [facility] (Rec: 07/02/20 12:36 [facility] [id number]) Physical Therapy Treatment Education Education Provided Safety M7 PT-IP Assessment and Plan Start: 07/02/20 08:14 Freq: NEEDED Status: Active Protocol: Document 07/02/20 11:15 DLM (Rec: 07/02/20 12:36 DLM [id number]) PT Summary Assessment and Plan Potential Rehabilitation Potential Good Status of Condition at Evaluation Evolving Summary Impairments Balance CVA-left basal ganglia infarct Assessment Summary Brittani presents with a very mild decrease her balance on the left side compared to the right and a mild decline in her rapid alternating movements of LE's. No functional deficits noted for normal gait and basic mobility . She has a safe and independent gait pattern without an assistive device. She has significant cognitive impairments that per the chart are not completely new. Will defer to OT for further cognitive testing/assessment. Will recommend nursing supervision/SBA while patient is in the hospital to decrease her fall risks due to her cognitive impairments in an unfamiliar environment. Discharge plan is home with her Spouse. No further skilled physical therapy needed at this time. Frequency of Treatment Frequency Of Treatment Discharge Recommendations To Nursing Amount of Assist Needed Standby Assistance Discharge Recommendations PT Discharge Recommendations Home with Assistance Other Discharge Recommendations needs home assist due to cognitive impairments and not for physical assist, Spouse is able to assist her as needed Transportation Needs at Discharge Private Vehicle
[2020-07-02 11:49] VITALS: BP 164/88
[2020-07-02] MEDS: LOSARTAN 25 MG TABLET 12.5 MG PO (11:49)
--- NOTE | 2020-07-02 11:50 | PC.NURSE ---
Patient A/Ox2, does not know date or day but is alert to self, location and year. Patient went for MRI this am via wheelchair. Returned, tele placed back on, morning medications passed and assessment done at that time. Patient is calm, soft-spoken, pleasant. Ambulating with SBA to restroom. Does not call before getting OOB. Bed alarm on. is bedside. Patient is saline locked, R FA IV site is CDI, flushed, patent. Patient denies lightheadedness, dizziness, chest pain, SOB or increased WOB. Reports a headache but denies wanting medication at this time. Patients reports pt takes 1/2 of a 25 mg Losartan daily. MD aware, dosing adjusted. OT currently working with PT. Call light in reach, bed alarm on, will continue to monitor.
[2020-07-02 12:00] VITALS: BP 164/88; PULSE 83; RESP 16; TEMP 36.6; O2SAT 100
--- NOTE | 2020-07-02 12:10 | OT.IP.EVAL ---
Current Diagnoses Cerebral infarction, unspecified (07/01/20) Past Medical History (Last Updated 07/01/20 @ 21:18 by MADDY Basurto) Anxiety Chicken pox Essential hypertension Hypertensive urgency Measles Migraines Recurrent sinusitis Vertigo Surgical History (Last Reviewed 07/01/20 @ 20:38 by MADDY Basurto) History of tonsillectomy Status post breast biopsy Occupational Therapy Inpatient Evaluation/Re-Eval M1 PT/OT-IP Prior Functional Status Start: 07/02/20 08:14 Freq: NEEDED Status: Active Protocol: Document 07/02/20 14:50 CGR (Rec: 07/02/20 15:03 R [id number]) Medical Review Prior Functional Status Medical History Reviewed Yes Diet/Fluid Consistency Regular Communication decreased cognitive status per chart notes, her Spouse reports she has a quiet nature Mobility and Gait Independent without device Activities of Daily Living and IADL's Independent, Spouse takes care of advanced ADL's, she takes care of her cats and she likes to paint Social History Household Members spouse,children Living Arrangements House Number of Floors (Floors) One Floor Number of Stairs To Enter/Railing? 3 stepst to enter with B narrow railing Home Environment Standard Height Toilet,Walk in Shower Home Equipment Straight Cane Employment Status Retired Additional Social History Comment Pt's states that pt has had memory problems for the last year and that he has done a lot of research on it and is aware of her prognosis. M2 OT-IP Current Condition Start: 07/02/20 14:50 Freq: Status: Active Protocol: Document 07/02/20 14:50 CGR (Rec: 07/02/20 15:03 R [id number]) Occupational Therapy Current Condition Current Condition Evaluation Date 07/02/20 Treatment Diagnosis CVA/TIA possible L basal ganglia infarct Diagnosis Onset Date 07/01/20 M3 OT- IP Subjective and Pain Start: 07/02/20 14:50 Freq: Status: Active Protocol: Document 07/02/20 14:50 CGR (Rec: 07/02/20 15:03 R [id number]) OT- Subjective Occupational Therapy Visit Type Type Initial Evaluation Visit Start Time 11:36 Visit Stop Time 12:10 Total Visit Minutes 34 OT Pain Assessment Pain When Pain Assessed At Rest Pain Present Pain Present Denied Pain M4 OT- IP ADL's Start: 07/02/20 14:50 Freq: Status: Active Protocol: Document 07/02/20 14:50 CGR (Rec: 07/02/20 15:03 CGR [id number]) OT [id number] General Evaluation Self-Feeding Ability Independent Comments OT Self-Feeding Comments lunch OT ADL-Grooming General Evaluation Grooming Ability Independent Areas Needing Assistance Combing/Brushing Hair,Face Washing Comments OT Grooming Comments standing at sink OT ADL-Oral Care General Eval Oral Care Ability Independent Areas of Assistance Brushing Teeth Comments Oral Care Comments standing at sink OT ADL-Dressing General Eval Lower Body Dressing Ability Independent Areas Needing Assistance Socks OT ADL-Toileting General Evaluation Toileting Ability Independent Comments OT Toileting Comments seated on toilet OT ADL-Bathing Comments OT Bathing Comments not performed M5 OT- IP IADL's Start: 07/02/20 14:50 Freq: Status: Active Protocol: Document 07/02/20 14:50 CGR (Rec: 07/02/20 15:03 CGR [id number]) OT-Instrumental Activities of Daily Living Deficits IADL Deficits Identified Deficits Home Safety Awareness Awareness of Need for Assistance at Home Decreased Awareness Ability to Problem Solve Emergency Unable to Problem Solve Situations Medication Management Medication Management Caregiver Administers Money Management Money Management Caregiver Provides Assistance Meal Preparation Meal Preparation Caregiver Provides Assist Mechanical Field Engineer Mechanical Field Engineer Caregiver Provides Assist Driving Driving Comments 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 M6 OT- IP Functional Cognition Start: 07/02/20 14:50 Freq: Status: Active Protocol: Document 07/02/20 14:50 CGR (Rec: 07/02/20 15:03 CGR [id number]) Cognitive Factors Limiting Selfcare Function Cognitive Ability Level of Alertness Alert Patient Orientation Name,Place Attention Span Ability Capable of Focused Attention, Capable of Sustained Attention Ability to Follow Commands Able to Follow One Step Commands with Increased Time, Able to Follow One Step Commands with Repetition Memory Description Immediate Impaired,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,Working Impaired Safety Awareness No Deficits Noted Cognitive Tests SLUMS Pt participated in the SLUMS scoring 3/30. Pt was able to state that she is in [place], to effei an X in the triangle and identify that the square is the largest item. Otherwise, pt was unable to correctly answer any of the other items from the test. Cognitive Comments Cognitive Assessment Comments Per , pt appears to be at her baseline for cognition. OT- Vision and Hearing OT- Hearing Assessment OT- Hearing Assessment WFL OT- Vision Assessment Visual Acuity Glasses All The Time Visual Attentiveness WFL Occular Pursuits WFL Visual Convergence WFL M7 OT- IP Mobility and Balance Start: 07/02/20 14:50 Freq: Status: Active Protocol: Document 07/02/20 14:50 CGR (Rec: 07/02/20 15:03 CGR [id number]) OT- Bed Mobility Assessment Rolling Level of Assistance Independent Supine to Sit Supine to Sit Assist Independent Scooting Scooting to Edge of Bed Independent OT-Transfer Assessment Sit to and From Stand Sit to and from Stand Standby Assistance Transfers Transfer Ability Standby Assistance Technique Transfer Destination Bed,Chair,Toilet Transfer Technique Stand Step Pivot Devices Transfer Assistive Devices Gait Belt Comments Mobility Comments SBA for safety in hospital setting. Likely IND at home. OT- Balance Assessment Sitting Balance and Reactions Static Sitting Balance Ability Normal Dynamic Sitting Balance Ability Good M8 OT- IP Objective Assessments Start: 07/02/20 14:50 Freq: Status: Active Protocol: Document 07/02/20 14:50 CGR (Rec: 07/02/20 15:03 CGR [id number]) OT Gross Range of Motion Upper Extremity Range of Motion Assessment Within Functional Limits OT Strength Upper Extremity Strength Assessment Within Functional Limits Comments Strength Comments grossly 4/5 OT- Coordination Assessment Upper Extremity Finger to Nose Test Within Functional Limits Finger Tapping Test Within Functional Limits OT-Muscle Tone Assessment Muscle Tone WNL Yes OT Sensation Assessment Edema Edema Absent M9 OT- IP Assessment and Plan Start: 07/02/20 14:50 Freq: Status: Active Protocol: Document 07/02/20 14:50 CGR (Rec: 07/02/20 15:03 CGR [id number]) OT Summary Assessment and Plan Potential Rehabilitation Potential Excellent Analytic Complexity at Evaluation Low Summary OT Impairments Functional Cognition Progress Towards Goals Safe For Discharge,Goals Met Assessment Summary Pt presents as a low complexity evaluation s/p admit with CVA. Pt presents at or close to her baseline. Pt' s cognitive ability is poor scoring a 3/30 on the SLUMS indicating that she is unlikely to benefit from cognitive therapy and that she will need 24/7 assist which her currently provides . No further OT needs. Frequency of Treatment Frequency Of Treatment Discharge Discharge Recommendations OT Discharge Recommendations Home with 24/7 Assist Transportation Needs at Discharge Private Vehicle
--- NOTE | 2020-07-02 14:46 | CM.DANOTE ---
DCP ASSESSMENT: Patient is a 74 yo female, who was admitted on 07/01/20 for syncope. Primary payer source: Medicare and [employer]. PCP is Karthikeyan Das. This mortgage loan underwriter and HEAD GREASE MAKER introduced the role of social work for discharge case management and left contact information on white board in room. Met bedside with patient and spouse. Per chart review patient's has reported a decline in cognitive function over the last year and appears to be close to baseline cognitive functioning per and consult with OT. Prior level of functioning patient was independent for basic ADL's and had supportive assistance from spouse and daughter for instrumental ADL's (chores etc..). Per OT/PT patient is not a candidate for rehabilitation services at this time due to decrease in cognitive functioning. Patient is able to return to the supportive structured environment, patient and spouse both reported being comfortable with discharge and declined additional resources at this time. PLAN: Patient to discharge home with spouse and daughter. FERD Sebastian Student FRED Daley Discharge Planning/Care Management Advanced directive,confirm from FACILITY Start: 07/01/20 18:30 Freq: Q24H Status: Active Protocol: Document 07/01/20 18:35 AK (Rec: 07/01/20 18:35 AK [id number]) Advance Directive, confirm on record Time 18:35 Person contacted Copy received No CM Discharge Assessment Start: 07/02/20 14:36 Freq: Status: Active Protocol: Document 07/02/20 14:37 KJS (Rec: 07/02/20 14:45 KJS [id number]) Discharge Planning Assessment Assigned Copy Center Operator Yolanda IBARRA Student Contact Information Cathy Angeles (Spouse) Phone #: Advance Directives? Yes Advance Directives on File No History Provided By Significant Other,Medical Record Has Patient been admitted in last 30 No days? Prior Living Arrangements House Household Members spouse,children Comment Daughter Shirley provides support to both parents Type of transporation used prior to Relies on Others admit Independent with ADL's Yes Is patient alert and oriented? No: Oriented to self Needs Assistance With Managing Medications,Home Chores / Shopping Comment Daughter and provide support Barriers to Discharge No Discharge Plan Home Transportation Arrangement will be transporting upon discharge Referrals Initiated None needed Whiteboard Updated in Patient Room with Yes name and ext. # of Copy Center Operator Review Status In Process
[2020-07-02] MEDS: POTASSIUM CHLORIDE 20 MEQ/15 ML UDC 40 MEQ PO (16:40)
--- NOTE | 2020-07-02 16:41 | PC.NURSE ---
Discharge/evening shift Note- Patient dischareged home. Discharge instructions and education reviewed with spouse and signed. Patient pulled IV line herself, bandaid applied. Tele monitor removed. JR. JAVA DEVELOPER help patient dress and pack up personal items. Patient left via wheelchair with all personal items at 1640.
--- NOTE | 2020-07-02 17:29 | PM.DS.1 ---
History of Present Illness History of Present Illness Date Patient Seen: 07/02/20 Chief complaint: SYNCOPE Narrative: Brittani Morgan is a 74 y.o. female with hypertension, hyperlipidemia was apparently at home in the kitchen and had an unwitnessed fall. Per her , the person that was with her did not seem to feel she lost consciousness and the patient does not remember what happened, nor does she know why she is in the hospital. The patient appears to be confused, and is apparently not very forthcoming, so a history is difficult to obtain from her. History obtained from Karthik, her and from review of her PCP's records. He states she has been gradually declining mentally over the past year, but in the last 3 days, was unable to function at all. His concerns about the patient's short term memory issues were corroborated in a visit with her wellness visit with her PCP in 2019, however she was resistant to further evaluation. When she fell, the person with her at her home called 911. 911 assessed her and advised the family take her to the ED as he said the EMT stated she would get upset at being loaded up into an ambulance and taking her to the hospital. Per records, the patient has severe hyperlipidemia, but did not tolerate statins. In the ED, the CT scan indicated a possible infarct of the basal ganglia. During her stay, her NIH scale was 3, then reassessment was 2. ED Nursing NIH scale was 4. They initially were going to administer tPA, but then decided not to administer due to a low NIH score. Her blood pressure on presentation to the ED was 170/100, then increase to 208/98 and is currently 177/98. Heart rate is 70, respiratory rate 15, oxygen saturation 99% on room air she weighs 53.5 kg with a BMI of 17.8. WBC was largely within normal limits, sodium was 136, the rest of her chemistries with the exception of her glucose was normal, she is prediabetic with a hemoglobin A1c of 6.3 and a glucose of 147 urinalysis and urine tox screen were both negative, COVID-19 PCR was negative. Discharge Providers Provider Date of admission: 07/01/20 17:03 Discharge Date: 07/02/20 Primary care physician: Karthikeyan Das MD Consults: 07/01/20 20:00 Consult to Discharge Planning Routine Comment: Consult to Occupational Therapy Evaluate & Treat Comment: Cognitive evaluation please Physician Instructions: Evaluate and treat Consult to Physical Therapy Evaluate & Treat Comment: Physician Instructions: Evaluate and Treat Consult to Speech Therapy Evaluate & Treat Comment: Physician Instructions: Evaluate and treat Discharge provider: Nikki Thomas MD Summary Hospital Course Discharge Diagnosis: 1. Left basal ganglia infarct 2. Dementia 3. Hypertension Hospital Course: Patient was admitted to the hospital for acute syncope. There was concern regarding a stroke as a head CT in the emergency room showed a left basal ganglia density. The patient underwent MRI of the brain this confirmed a left basal ganglia infarct. The patient had an echo with bubble study which showed no PFO, normal LV function, small pericardial effusion. Patient was quite hypertensive during the procedure. Patient's was at the bedside. He is aware that the patient is confused and that has been progressive over the past year. She had no further neurological symptoms than at admission and was deemed appropriate for discharge home. She was seen by speech therapy who recommended outpatient speech. It was felt that due to the patient's cognitive deficit, slow slums score of 3/20 that a further therapy would not be indicated. Patient was deemed appropriate for discharge and discharged Status at Discharge Cognitive/behavioral status at discharge: at baseline, confused Functional status at discharge: independent ambulation Overall status at discharge: patient is back to baseline Time Spent with Patient Time spent: Less than 30 minutes Exam Vital Signs (past 8 hours): - 07/02/20 10:13 07/02/20 10:42 07/02/20 11:12 Temperature 97.8 F Pulse Rate 82 82 83 Respiratory Rate 16 Blood Pressure 175/91 H 175/91 H 164/88 H Pulse Oximetry 98 07/02/20 11:49 07/02/20 12:00 Temperature 98 F Pulse Rate 83 Respiratory Rate 16 Blood Pressure 164/88 H 164/88 H Pulse Oximetry 100 Oxygen Delivery Method Room Air Oxygen Flow Rate 0 Narrative Exam Narrative: Pleasant female resting comfortably in no obvious distress Lungs: Clear to auscultation Cardiac exam: Regular rate and rhythm normal S1-S2 Abdomen: Soft nontender nondistended Extremities: No edema Neuro exam: And unchanged Objective Labs Result Diagrams: 07/02/20 04:45 07/02/20 04:45 Labs: Laboratory Results - last 24 hr 07/01/20 07/02/20 07/02/20 14:05 04:45 04:45 WBC 8.3 RBC 4.26 Hgb 12.4 Hct 37.2 MCV 87.4 MCH 29.2 MCHC 33.4 RDW 15.6 H Plt Count 222 Neut % (Auto) 64.1 Lymph % (Auto) 23.3 L [place] % (Auto) 11.2 Eos % (Auto) 0.8 L Baso % (Auto) 0.6 Neut # (Auto) 5300 Lymph # (Auto) 1900 [place] # (Auto) 900 Eos # (Auto) 100 Baso # (Auto) 0 Sodium 138 Potassium 3.3 L Chloride 104 Carbon Dioxide 30 BUN 14 Creatinine 0.67 Estimated GFR > 60.0 BUN/Creatinine Ratio 20.9 Glucose 107 Hemoglobin A1c 6.3 H Calcium 9.2 Magnesium 2.2 Triglycerides Cholesterol LDL Cholesterol, Calc HDL Cholesterol TSH 07/02/20 07/02/20 04:45 04:45 WBC RBC Hgb Hct MCV MCH MCHC RDW Plt Count Neut % (Auto) Lymph % (Auto) [place] % (Auto) Eos % (Auto) Baso % (Auto) Neut # (Auto) Lymph # (Auto) [place] # (Auto) Eos # (Auto) Baso # (Auto) Sodium Potassium Chloride Carbon Dioxide BUN Creatinine Estimated GFR BUN/Creatinine Ratio Glucose Hemoglobin A1c Calcium Magnesium Triglycerides 109 Cholesterol 237 H LDL Cholesterol, Calc 176 H HDL Cholesterol 39 L TSH 1.73 PFSH Medical History (Updated 07/01/20 @ 21:18 by MADDY Basurto) Anxiety Chicken pox Essential hypertension Hypertensive urgency Measles Migraines Recurrent sinusitis Vertigo Surgical History History of tonsillectomy Status post breast biopsy Family History Mother Memory impairment Father of unknown cause Social History household members: spouse and children Smoking Status: Never smoker alcohol intake: never Discharge Assessment & Plan Assessment and Plan Assessment: 1. Subacute left basal ganglia infarct 2. Dementia 3. Hypertension 4. Hypokalemia Plan of Treatment: Discharge home Follow-up with Dr. miller scheduled Discharge Plan Discharge Plan Patient Disposition: Home Discharge orders & Medications Prescriptions: New aspirin 81 mg Tablet,Delayed Release (Dr/Ec) 81 mg PO DAILY Qty: 30 RF: 0 atorvastatin [Lipitor] 20 mg Tablet 40 mg PO BEDTIME Qty: 30 RF: 0 clopidogrel 75 mg Tablet 75 mg PO DAILY Qty: 21 RF: 0 Continued carvedilol 12.5 mg tablet 12.5 mg PO BID Qty: 180 RF: 3 losartan 25 mg Tablet 25 mg PO DAILY RF: 0 Follow up/Referrals: Karthikeyan Das MD [Primary Care Provider] - Discharge Health Status Multidrug resistant organism: No MDRO Diet/Activity/Treatments Diet: Low-sodium and Low-cholesterol Visit Report/Discharge Packet Instructions: Cholesterol-lowering Diet, Low-Sodium Diet Discharge Data Primary Care Provider: Karthikeyan Das Quality VTE Deep Vein Thrombosis/Pulmonary Embolism Present on Admission: No
== END 2020-07-02 16:41 | disposition home or self-care (01) | DRG 66 ==
LOC: ED 14:05 → AC 17:03
PROVIDERS: Nurse Practitioner Family; Admitting Provider Internal Medicine; Emergency Provider Emergency Medicine; PCP Student in an Organized Health Care Education/Training Program; Referring Provider Emergency Medicine; Visit Provider Internal Medicine
DX: I63.9 Cerebral infarction, unspecified (principal); I10 Essential (primary) hypertension; E78.5 Hyperlipidemia, unspecified; R73.03 Prediabetes; F03.90 Unspecified dementia, unspecified severity, without behavioral disturbance, psychotic disturbance, mood disturbance, and anxiety; W18.30XA Fall on same level, unspecified, initial encounter; Y92.000 Kitchen of unspecified non-institutional (private) residence as the place of occurrence of the external cause; Z20.822 Contact with and (suspected) exposure to COVID-19
CPT/HCPCS: 36415; 70450; 70496; 70498; 70548; 70553; 71045; 80048; 80053; 80061; 80305; 81001; 82550; 82553; 82962; 83036; 83735; 84443; 84484; 85025; 85610; 85730; 87635; 93005; 93010; 93306; 97129; 97161; 97165; 99284; C9803; A9579; J1650; Q9967

== ENCOUNTER → 2020-07-20 14:09 | Outpatient (CLI) | payer MEDICARE, OTHER, SELFPAY ==
[2020-07-01 17:13] VITALS: BMI 17.8
[2020-07-20] MEDS: COVID-19 VACC #1, MRNA(MOD) 100 MCG/0.5 ML VIAL IM (14:21)
== END ==
PROVIDERS: Family Provider Student in an Organized Health Care Education/Training Program; PCP Student in an Organized Health Care Education/Training Program; Visit Provider Internal Medicine
DX: Z23 Encounter for immunization (principal)
CPT/HCPCS: 0011A; 91301

== ENCOUNTER → 2020-08-17 12:04 | Outpatient (CLI) | payer MEDICARE, OTHER, SELFPAY ==
[2020-07-01 17:13] VITALS: BMI 17.8
[2020-08-17] MEDS: COVID-19 VACC #2, MRNA(MOD) 100 MCG/0.5 ML VIAL IM (12:12)
== END ==
PROVIDERS: Family Provider Student in an Organized Health Care Education/Training Program; PCP Student in an Organized Health Care Education/Training Program; Visit Provider Internal Medicine
DX: Z23 Encounter for immunization (principal)
CPT/HCPCS: 0012A; 91301

== ENCOUNTER 2020-09-11 15:19 | Outpatient (RCR) | payer MEDICARE, OTHER, SELFPAY ==
[2020-07-01 17:13] VITALS: BMI 17.8
--- NOTE | 2020-09-11 17:45 | ST.OPIE ---
Visit Care Team Role Provider Type Karthikeyan Das MD Attending Provider Physician Family Provider Primary Care Provider Referring Provider Specialty: Internal Medicine Address: [address] [place] [address], [address], [place], [address] Email: [email or web address] Speech-Language Pathology Initial Evaluation NUCLEAR REACTOR TECHNICIAN Adult Cognitive Linguistic Eval Start: 09/11/20 17:59 Freq: Status: Active Protocol: Document 09/11/20 17:59 LUANA (Rec: 09/11/20 18:12 LUANA [id number]) Adult Cognitive Linguistic Evaluation Session Time Visit Start Time 15:30 Visit Stop Time 16:25 Total Visit Minutes 55 Visit Information Visit Number Initial Evaluation Plan of Care Dates - 11/11/20 Insurance Information [employer] Referral Referring Provider Dr. Karthikeyan Das Reason for Referral CVA Setting Assessment Location Outpatient Care Visit Type Note Type Initial evaluation Next Note Type Next Note Type Treatment Note Patient Information Identification Type Name,ID Card Medical History The pt is a 74-yr-old female s/p left basal ganglia stroke in June 2020. During her hospital stay, she was noted to be confused. Her reported progressive decline in memory and cognitive status over the last year and particularly in the weeks leading up to the stroke. The pt was seen by PT/OT during hospital stay, including cognitive assessment resulting in score of 3/30 on SLUMS. WFDs were also noted, and outpatient speech therapy was recommended. All other symptoms appeared to have resolved, and the pt appeared to otherwise be back to baseline and she was discharged home with family. She lives in [place] with her and their daughter , who appears to be primary caregiver to both parents. Language(s) Spoken in the Home [place] Education Level High School Occupation Status Retired Hearing Hearing Level Normal Vision Vision Status Not Impaired Previous Therapy Previous Speech-Language Therapy No: Inpatient assessment only Subjective Patient Report The pt arrived on time accompanied by her daughter, Shirley, who was present throughout the evaluation and provided limited case history. The pt was not a good historian, primarily responding, I don't know to most questions. She was agreeable to assessment. Formal Assessment Standardized Test/Screener Type [place] Cognitive Assessment (MoCA) Administration Complete Results Overall Score: 10/30 Visuospatial/Executive (2/5): Unable to complete any step of trail making task despite multiple instructions and demonstration. Pt stated, I don't know what I'm supposed to do. Cube copying, 58% acc. Clock drawing included all numbers correctly rotated and adequately spaced; 2 lines originating from center, pointing to 2:00 (correct = 11 :10). Naming (3/3) Immediate Memory (no score): First trial, 2/5 items; Second trial, 3/5 items including original 2 items recalled. Attention (2/6): 100% acc reciting 5 numbers in forward order and 3 numbers in reverse . Hand tapping upon hearing the letter A in a series of letters: responses were random with no apparent understanding/recall of instructions. Pt was unable to subtract 7 from 2 numbers presented by NUCLEAR REACTOR TECHNICIAN (100 and 93); she stated, I don't know with all prompts. Language (1/2): Pt recited 1 of 2 sentences exactly as presented by clinician. Only 1 addition of a function word was made in the longer sentence. Abstraction (0/2): When asked how a banana and orange were similar, the pt responded, They both taste good. Given the prompt that they are both fruits, the pt agreed. She was unable to state how a train and bicycle are similar (I don't know); response to watch and ruler: Numbers. Delayed Recall (0/5): Pt unable to recall independently or with category clues; 2/5 items correctly identified with multiple choice cue. Orientation (2/6): Pt was oriented to place and city. Identified year as 1919, and responded, I don't know to date, month and day. [place] Naming Test (short form ) was also administered. Pt named 14/15 pictures independently with delay of 5- 10 sec for 3 items. She was not responsive to stimulus cue but was responsive to phonemic cue with the remaining picture (sphinx). The pt and her daughter were educated on assessment results . Recommended additional assessment by Neurophsychologist to better identify cognitive status and guide POC. The pt and daughter verbalized understanding recommendation but did not indicate agreement or disagreement. Following the session, this NUCLEAR REACTOR TECHNICIAN contacted Dr. Das's office and spoke with his nurse, Kristan. Informed her of test results and recommended neuropsychological testing for dementia. Findings/Results Cognitive Function Severely impaired Findings The pt presented with severely impaired cognitive communication skills in areas of MoCA assessment with exception of Naming. She also scored WNL on short form of [place] Naming Test. Informal assessment of the pt's expressive and receptive language skills was attempted but inconclusive d/t limited verbal output from the pt. Although most responses to the clinician's questions were I don't know, she did respond with appropriate language content and structure to questions related to her daily activities and did follow most oral instructions presented during formal assessment tasks. This indicates receptive and expressive language skills WFL for short basic conversation on topics related to the patient. However, the pt's daughter corrected and/or added to content provided by the pt, indicating limited recall of daily activities and knowledge. For example, when asked if she had any pets, the pt said no, which was corrected by her daughter (she has 2 cats). The pt was unable to recall daily activities beyond making lunch and dinner and watching TV. While diagnosis of dementia has not been formally made, per dtr's report, it is highly suspected and formal assessment is warranted both to guide therapy POC and to guide the family's response and planning for the future. In discussions of therapy goals, the pt expressed no goals or desired direction for therapy. The daughter indicated word recall and general communication skills as lacking, stating, We communicate a lot via charades . No other direction or desired goals were indicated. Given a list of daily household activities, input from the daughter indicated that she (dtr) primarily fulfills the responsibilities, with the pt participating with her in meal prep and laundry. The pt used to play computer games and shop online , but that ended with the stroke, and the pt did not expressed no desire to resume these activities. Meds are received in packets via mail delivery, and the dtr administers them to both of her parents at the appropriate times. This NUCLEAR REACTOR TECHNICIAN requested that the family discuss and identify goals for therapy. Establishment of external memory tools and increased participation in daily activities under supervision were recommended. The pt was not responsive to this information, but her daughter expressed agreement. Agreed to continue assessment and initiate therapy as indicated while awaiting neuropsych testing (if desired by pt/ family). Progress with therapy may be limited by the patient 's seemingly lack of interest and/or awareness of deficits. Cognitive Communication Deficits Self-awareness of Cognitive- No awareness Communication Deficits Concomitant Factors Comment Flat affect; exhibits low motivation/apathy Impact on Functioning Activity Limits/Particip.Rest. Sev: General Tasks and Demands Household Tasks Interpersonal Interactions Community Safety Risks Sev: Being Left Alone at Home Reacting to Emergency Managing Medication Traveling Alone in Community Prognosis Prognosis Guarded Based on Cognitive status,Duration of symptoms/severity Plan of Care Speech-Language Treatment Yes Frequency 1x/wk Duration 5 wks - may be extended pending pt's involvement and desires Patient/Caregiver Education Described results of evaluation,Family/caregivers expressed understanding of evaluation,Family/caregivers expressed agreement with goals and treatment plan,Patient requires further education/ training,Family/caregivers require further education/ training Short Term Goals 1. The pt will participate in further expressive/receptive language assessment and goal collaboration to guide POC. 2. Pt/family will participate in development of external memory tools to increase pt's participation in daily activities and quality of life and to reduce caregiver load. Additional goals to be developed in collaboration with pt/family. Intermediate Goals 1. The pt will use external memory tools and/or environmental adaptations with moderate caregiver prompting to increase pt's participation in daily activities and quality of life and to reduce caregiver load. 2. The pt will demonstrate expressive, receptive, and cognitive communication skills adequate to remain in her home under the care of family support. Additional goals to be developed in collaboration with pt/family.
--- NOTE | 2020-12-04 16:22 | ST.OPDS ---
Visit Care Team Role Provider Type Karthikeyan Das MD Attending Provider Physician Family Provider Primary Care Provider Referring Provider Address: [address] [place] [address], [address], [place], [address] ACCOUNT DEVELOPER Treatment Note ACCOUNT DEVELOPER Treatment Note Start: 12/04/20 16:19 Freq: Status: Active Protocol: Document 12/04/20 16:19 LUANA (Rec: 12/04/20 16:20 LUANA [id number]) Speech Pathology Treatment Note Visit Information Plan of Care Dates - 11/11/20 Insurance Information [employer] Setting Treatment Setting Outpatient Care Visit Type Note Type Discharge Summary General Information General Information The pt is a 75-yr-old female s /p left basal ganglia stroke in June 2020. During her hospital stay, she was noted to be confused. Her reported progressive decline in memory and cognitive status over the last year and particularly in the weeks leading up to the stroke. The pt was seen by PT/OT during hospital stay, including cognitive assessment resulting in score of 3/30 on SLUMS. WFDs were also noted, and outpatient speech therapy was recommended. All other symptoms appeared to have resolved, and the pt appeared to otherwise be back to baseline and she was discharged home with family. She lives in [place] with her and their daughter , who appears to be primary caregiver to both parents. Subjective Observations/Patient Presentation 09/18/20: Pt's daughter called and cnxd all appts. Pt declined rescheduling. Pt understands she may be d/c and need a new referral if she wishes to return for ST in the future. Objective Short Term Goals GOALS NOT MET 1. The pt will participate in further expressive/receptive language assessment and goal collaboration to guide POC. 2. Pt/family will participate in development of external memory tools to increase pt's participation in daily activities and quality of life and to reduce caregiver load. Additional goals were to be developed in collaboration with pt/family. Size Tester Goals 1. The pt will use external memory tools and/or environmental adaptations with moderate caregiver prompting to increase pt's participation in daily activities and quality of life and to reduce caregiver load. 2. The pt will demonstrate expressive, receptive, and cognitive communication skills adequate to remain in her home under the care of family support. Additional goals were to be developed in collaboration with pt/family. Plan Therapy Recommendations Discharge from Speech Therapy
== END 2020-12-05 08:27 | disposition home or self-care (01) ==
LOC: SP 15:19
PROVIDERS: Family Provider Student in an Organized Health Care Education/Training Program; PCP Student in an Organized Health Care Education/Training Program; Referring Provider Student in an Organized Health Care Education/Training Program; Visit Provider Student in an Organized Health Care Education/Training Program
DX: I63.9 Cerebral infarction, unspecified (principal)
CPT/HCPCS: 92523

== ENCOUNTER → 2021-09-26 16:08 | Outpatient (CLI) | payer MEDICARE, OTHER, SELFPAY ==
[2020-07-01 17:13] VITALS: BMI 17.8
[2021-09-26 17:03] LABS: Hematocrit 38.9 % (36-46); Hemoglobin 13.6 g/dL (12.0-16.0); Mean Corpuscular Hemoglobin 32.6 PG (26-34); Platelet Count 205 X10^3/uL (150-400); Red Blood Cell Count 4.19 X10^6/uL (4.0-5.2); Red Cell Distribution Width 12.7 % (11.6-14.8); White Blood Cell Count 4.9 X10^3/uL (4.5-11.0)
[2021-09-26 17:09] LABS: Hemoglobin A1C% w Est Avg Glu 6.4 % (4.0-6.0)
[2021-09-26 17:27] LABS: Alanine Aminotransferase 21 IU/L (<35); Albumin 4.5 g/dL (3.5-5.0); Albumin Globulin Ratio 1.3 (1.0-2.8); Alkaline Phosphatase 94 U/L (38-126); Aspartate Aminotransferase 34 IU/L (14-36); BUN Creatinine Ratio 22.9 (6-22); Bilirubin Total 0.7 mg/dL (0.2-1.3); Blood Urea Nitrogen 19 mg/dL (7-17); Calcium 9.1 mg/dL (8.4-10.2); Carbon Dioxide 31 mmol/L (22-32); Chloride 104 mmol/L (98-107); Cholesterol 162 mg/dL (140-199); Estimated Glomerular Filt Rate > 60 mL/min (>60); Globulin 3.6 g/dL (1.7-4.1); Glucose 129 mg/dL (80-110); HDL Cholesterol 42 mg/dL (40-60); HEMOLYSIS < 15 (0-50); LDL Cholesterol Calculated 76 mg/dL (<100); Sodium 143 mmol/L (137-145); Total Protein 8.1 g/dL (6.3-8.2); Triglycerides 218 mg/dL (35-150)
== END ==
PROVIDERS: Family Provider Student in an Organized Health Care Education/Training Program; PCP Student in an Organized Health Care Education/Training Program; Referring Provider Student in an Organized Health Care Education/Training Program; Visit Provider Student in an Organized Health Care Education/Training Program
DX: E11.9 Type 2 diabetes mellitus without complications (principal); E78.5 Hyperlipidemia, unspecified; I10 Essential (primary) hypertension; Z79.899 Other long term (current) drug therapy
CPT/HCPCS: 36415; 80053; 80061; 83036; 85027

== ENCOUNTER → 2022-08-14 13:50 | Outpatient (CLI) | payer MEDICARE, OTHER, SELFPAY ==
[2020-07-01 17:13] VITALS: BMI 17.8
[2022-08-14 14:55] LABS: BUN Creatinine Ratio 22.5 (6-22); Blood Urea Nitrogen 16 mg/dL (7-17); Calcium 9.3 mg/dL (8.4-10.2); Carbon Dioxide 28 mmol/L (22-32); Chloride 104 mmol/L (98-107); Estimated Glomerular Filt Rate > 60 mL/min (>60); Glucose 98 mg/dL (80-110); HEMOLYSIS < 15 (0-50); Potassium 4.2 mmol/L (3.4-5.1); Sodium 142 mmol/L (137-145)
[2022-08-14 14:58] LABS: Hemoglobin A1C% w Est Avg Glu 6.3 % (4.0-6.0)
[2022-08-15 17:13] LABS: Hep C Virus Ab w/Reflex Quant NEGATIVE s/c (NEGATIVE)
== END ==
PROVIDERS: Family Provider Student in an Organized Health Care Education/Training Program; PCP Student in an Organized Health Care Education/Training Program; Referring Provider Student in an Organized Health Care Education/Training Program; Visit Provider Student in an Organized Health Care Education/Training Program
DX: E11.9 Type 2 diabetes mellitus without complications (principal); I10 Essential (primary) hypertension; Z11.59 Encounter for screening for other viral diseases
CPT/HCPCS: 36415; 80048; 83036; 86803

== ENCOUNTER 2023-07-19 17:31 | Emergency (ER) | payer MEDICARE, OTHER, SELFPAY ==
[2020-07-01 17:13] VITALS: BMI 17.8
[2023-07-19] VITALS (17 sets, daily range): BP systolic 122–171; BP diastolic 70–88; PULSE 58–71; RESP 12–35; TEMP 36.6; O2SAT 93–98
--- NOTE | 2023-07-19 17:41 | DI.CT.S_ITS ---
PROCEDURE: CT ANGIO HEAD AND NECK INDICATIONS: AMS TECHNIQUE: After the administration of intravenous contrast, 1 mm thick sections acquired from the aortic arch through the [place]. 3-dimensional [id number] (MIP) and/or volume rendering reformats were acquired of the central intracranial vasculature and neck separately. For radiation dose reduction, the following was used: automated exposure control, adjustment of mA and/or kV according to patient size. COMPARISON: [facility], MR, MR STROKE, 07/02/2020, 8:19. [facility], CT, CT HEAD/BRAIN WO CON, 07/19/2023, 18:18. [facility], CT, CT ANGIO HEAD AND NECK, 07/01/2020, 14:05. FINDINGS: Image quality: Diagnostic. BRAIN: CSF spaces: Ventricles are normal in size and shape. Basal cisterns are patent. Ex vacuo dilatation of the left lateral ventricle is again seen. Brain: Areas of remote infarction can be seen, which are worst involving the left frontal lobe. Skull and face: Calvarium and facial bones appear intact, without suspicious lesions. Orbits appear normal. Sinuses: Sinuses and mastoids are clear. HEAD CT ANGIOGRAPHY: Anterior circulation: Intracranial internal carotid arteries are normal in size and flow. The flow within the paired anterior cerebral arteries is normal and symmetric. The flow within the middle cerebral arteries is normal and symmetric. The anterior communicating artery is seen. No aneurysms are seen. Posterior circulation: Visualized portions of the vertebral arteries demonstrate normal caliber, and join to form a normal appearing basilar artery. Flow within the posterior cerebral arteries is normal and symmetric. No aneurysms are seen. NECK CT ANGIOGRAPHY: Carotid system: The great vessels demonstrate a conventional anatomy as they arise from the aortic arch. The origins of the common carotid arteries appear patent. The common carotid arteries demonstrate normal caliber and courses. The bifurcation regions are both widely patent. The internal carotid arteries demonstrate normal calibers. Tortuosity can be seen involving the internal carotid arteries. Posterior circulation: The origins of the vertebral arteries both appear widely patent. The more superior extracranial portions of both vertebral arteries also demonstrate normal courses and calibers. They join to form a normal appearing basilar artery. Soft tissues: Visualized neck soft tissues demonstrate no suspicious abnormalities. Bones: No suspicious bony lesions. Visualized cervical spine appears normally aligned. IMPRESSION: No significant intracranial arterial abnormality is seen. No significant abnormality is seen within the arteries of the neck. Additional findings: Tortuosity of the internal carotid arteries Any quantitative measurements of stenosis were performed using NASCET criteria. Dictated by: Bay Huynh M.D. on 07/19/2023 at 17:44 Approved by: Bay Huynh M.D. on 07/19/2023 at 17:46
--- NOTE | 2023-07-19 17:41 | DI.CT.S_ITS ---
PROCEDURE: CT HEAD/BRAIN WO CON INDICATIONS: AMS TECHNIQUE: Noncontrast 4.5 mm thick angled axial sections acquired from the foramen magnum to the vertex, with coronal and sagittal reformats. For radiation dose reduction, the following was used: automated exposure control, adjustment of mA and/or kV according to patient size. COMPARISON: [facility], CT, CT STROKE, 07/01/2020, 14:05. [facility], MR, MR STROKE, 07/02/2020, 8:19. [facility], CT, CT ANGIO HEAD AND NECK, 07/19/2023, 18:18. FINDINGS: Image quality: Diagnostic. CSF spaces: Basal cisterns are patent. No extra-axial fluid collections. The ventricles are stable, with ex vacuo dilatation of the left lateral ventricle. Brain: No intracranial bleeds or masses. There is cerebral volume loss for age, with resultant ventricular and sulcal prominence. There are periventricular and deep white matter chronic small vessel ischemic changes. Areas of remote infarction can be seen, which are worst involving the deep white matter of the left frontal lobe. There is intracranial internal carotid artery atherosclerosis. Skull and face: Calvarium and visualized facial bones appear intact, without suspicious lesions. Incidental note is made of hyperostosis frontalis. This is not considered to be pathologic in a woman of this age. Sinuses: Visualized sinuses and mastoids are clear. IMPRESSION: No acute intracranial pathology. If there is strong clinical suspicion for an acute stroke, please consider a brain MRI for further evaluation, as it is more sensitive (assuming that there is no contraindication to MRI). Prior infarctions are seen, which are worst on the left, with associated ex vacuo dilatation of the left lateral ventricle. Dictated by: Bay Huynh M.D. on 07/19/2023 at 17:42 Approved by: Bay Huynh M.D. on 07/19/2023 at 17:44
[2023-07-19 17:57] LABS: Add Manual Diff / Slide Review NO; Basophils Absolute Auto 100 /uL (0-100); Basophils Percent Auto 0.8 % (0-2); Eosinophils Absolute Auto 100 /uL (0-450); Eosinophils Percent Auto 1.5 % (2-4); Hematocrit 40.3 % (36-46); Hemoglobin 13.9 g/dL (12.0-16.0); Lymphocytes Absolute Auto 2500 /uL (1100-4500); Lymphocytes Percent Auto 34.7 % (25-40); Mean Corpuscular HGB Conc 34.4 % (30-36); Mean Corpuscular Hemoglobin 31.7 PG (26-34); Mean Corpuscular Volume 92.1 fL (80-100); Monocytes Absolute Auto 700 /uL (0-900); Monocytes Percent Auto 9.1 % (3-14); Neutrophils Absolute Auto 3900 /uL (1500-7000); Neutrophils Percent Auto 53.9 % (50-75); Platelet Count 249 X10^3/uL (150-400); Red Blood Cell Count 4.38 X10^6/uL (4.0-5.2); Red Cell Distribution Width 13.4 % (11.6-14.8); White Blood Cell Count 7.2 X10^3/uL (4.5-11.0)
[2023-07-19 18:01] LABS: Alanine Aminotransferase 17 IU/L (<35); Albumin 4.4 g/dL (3.5-5.0); Albumin Globulin Ratio 1.3 (1.0-2.8); Alkaline Phosphatase 82 U/L (38-126); Aspartate Aminotransferase 29 IU/L (14-36); Bilirubin Total 0.9 mg/dL (0.2-1.3); Blood Urea Nitrogen 19 mg/dL (7-17); Calcium 9.8 mg/dL (8.4-10.2); Carbon Dioxide 23 mmol/L (22-32); Chloride 98 mmol/L (98-107); Estimated Glomerular Filt Rate > 60 mL/min (>60); Ethanol (ETOH) < 10 mg/dL; Globulin 3.4 g/dL (1.7-4.1); Glucose 197 mg/dL (80-110); HEMOLYSIS 18 (0-50); Lipase 152 U/L (23-300); Potassium 3.5 mmol/L (3.4-5.1); Sodium 133 mmol/L (137-145); Total Protein 7.8 g/dL (6.3-8.2)
[2023-07-19 18:16] LABS: UR Morphine/Opiate cutoff 300 Negative (Negative); Ur Creatinine Normal (Normal); Ur Specific Gravity Normal (Normal); Urine Amphetamines Negative (Negative); Urine Barbiturates Negative (Negative); Urine Benzodiazepines Negative (Negative); Urine Cocaine Negative (Negative); Urine MDMA Negative (Negative); Urine Methadone Negative (Negative); Urine Methamphetamines Negative (Negative); Urine Phencyclidine Negative (Negative); Urine Tetrahydrocannabinol Negative (Negative); Urine pH Normal (Normal)
[2023-07-19 18:17] LABS: Urine Oxycodone Positive (Negative); Urine Tricyclic Antidepressant Negative (Negative)
[2023-07-19 18:38] LABS: Influenza A - CEPHEID Flu A NEGATIVE (NEGATIVE); Influenza B - CEPHEID Flu B NEGATIVE (NEGATIVE); Respiratory Syncytial Virus Negative (Negative)
--- NOTE | 2023-07-19 18:42 | ED_ITS ---
HPI - Neuro Symptoms/Deficit General Chief Complaint: Neuro Symptoms/Deficit Stated Complaint: [id number]? Time Seen by Provider: 07/19/23 17:40 Source: EMS Mode of arrival: EMS History of Present Illness HPI Narrative: Patient comes to the ED by EMS after a syncopal event that lasted about 5 minutes. Her witnessed it and he says that a similar event happened a couple of years ago with no discrete etiology ever identified. He and the patient herself both acknowledge that she has been well and in her usual state of health today. She has some baseline dementia but it is minor she is able to take care of all of her own personal needs at baseline. He says that she became unconscious without injury as if she would gone to sleep and was unarousable for about 5 minutes. By the time paramedics arrived at the scene she was back awake and alert and appropriate. The patient has no insight as to what may have happened. She denies any symptoms at all. Specifically she denies fever, URI symptoms, headache, chest pain, shortness of breath, abdominal pain, nausea, vomiting, diarrhea, dysuria, or any neurologic deficit. No palpitations. No medication changes. No recent illness. No injury. On Anticoagulants: No Related Data Previous Rx's Medication Instructions Recorded carvedilol 12.5 mg tablet 12.5 mg PO BID #180 tabs 09/13/22 aspirin 81 mg tablet,delayed 81 mg PO DAILY #90 tabs 09/23/22 release atorvastatin 40 mg tablet 40 mg PO BEDTIME #90 tabs 09/23/22 clopidogrel 75 mg tablet 75 mg PO DAILY #90 tabs 09/23/22 losartan 25 mg tablet 25 mg PO DAILY #90 tabs 09/23/22 Allergies Allergy/AdvReac Type Severity Reaction Status Date / Time Cnundit-DFL-JtA Reductase AdvReac Intermediate muscle Verified 08/14/22 13:34 Inhibitor pain, [Plvakdu-Zze-Wjn Reductase nausea Inhibitor] Opioids - Morphine Analogues AdvReac Mild N/V Verified 08/14/22 13:34 [OPIOIDS - MORPHINE ANALOGUES] Review of Systems Hematologic/Lymphatic On Anticoagulants: No Patient History Medical History (Updated 07/19/23 @ 20:08 by Graeme Barone MD) Infarction of left basal ganglia Essential hypertension Hypertensive urgency Anxiety Migraines Measles Chicken pox Vertigo Recurrent sinusitis Surgical History Status post breast biopsy History of tonsillectomy Family History Mother Memory impairment Father of unknown cause Social History household members: spouse and children Smoking Status: Never smoker alcohol intake: never Smoking Status: Never smoker alcohol intake frequency: 0-2 drinks per day Substance Use Type: does not use Exam Narrative Exam Narrative: GENERAL: Alert, cooperative and in no distress. HEAD: Atraumatic. Normocephalic. EYES: Sclera are clear without icterus. Extraocular movements are full. ENT: No rhinorrhea. Oropharynx is moist. Mouth exam is benign. NECK: Supple. Full range of motion. CARDIOVASCULAR: Normal rate and rhythm without murmur gallop or rub. RESPIRATORY: Clear to auscultation. Breath sounds equal bilaterally. No wheezes, rales, or rhonchi. GASTROINTESTINAL: Abdomen soft, non-tender, nondistended. EXTREMITIES: No edema, full range of motion. No obvious trauma. BACK: Normal inspection, no CVA tenderness. NEURO: Nonfocal examination, normal speech Visual dumont are intact, normal strength in upper and lower extremities. Normal coordination upper extremities. Gaze is intact. Face is symmetric. Speech is normal. Pupils are equal. SKIN: No rash or erythema of visible areas PSYCH: Normally oriented. Normal range of affect. Appropriate behavior Initial Vital Signs Initial Vital Signs: Vital Signs Temperature 97.9 F 07/19/23 17:36 Pulse Rate 60 07/19/23 17:36 Respiratory Rate 18 07/19/23 17:36 Blood Pressure 125/78 07/19/23 17:36 Pulse Oximetry 97 07/19/23 17:36 Oxygen Delivery Method Room Air 07/19/23 17:36 Course Orders Ordered: ED Orders 07/19/23 17:32 Urine Drug Screen, Rapid Stat 07/19/23 17:33 Complete Blood Count AUTO DIFF Stat Comprehensive Metabolic Panel Stat Ethanol (ETOH) Stat Lipase Stat 07/19/23 17:41 CT angio head and neck Stat CT head/brain wo con Stat 07/19/23 17:52 EKG-12 Lead Stat 07/19/23 17:54 Covid-19 + FLU A/B + RSV - PCR Stat 07/19/23 19:10 Urine Culture Stat Urine Microscopic Stat Vital Signs Vital signs: Vital Signs - 8 hr 07/19/23 17:36 07/19/23 17:36 07/19/23 17:37 Temperature 97.9 F Pulse Rate 60 60 Respiratory Rate 18 Blood Pressure 125/78 122/78 Pulse Oximetry 97 95 Oxygen Delivery Method Room Air 07/19/23 17:37 07/19/23 17:45 07/19/23 18:00 Temperature Pulse Rate 60 58 L 63 Respiratory Rate 15 20 Blood Pressure Pulse Oximetry 93 95 96 Oxygen Delivery Method 07/19/23 18:01 07/19/23 18:01 07/19/23 18:05 Temperature Pulse Rate 61 Respiratory Rate 20 Blood Pressure 138/85 141/85 H Pulse Oximetry 97 Oxygen Delivery Method 07/19/23 18:05 07/19/23 18:20 07/19/23 18:21 Temperature Pulse Rate 59 L 61 Respiratory Rate 24 Blood Pressure 171/82 H Pulse Oximetry 96 96 Oxygen Delivery Method 07/19/23 18:21 07/19/23 18:30 07/19/23 18:30 Temperature Pulse Rate 61 62 Respiratory Rate 15 16 Blood Pressure 154/81 H Pulse Oximetry 97 98 Oxygen Delivery Method 07/19/23 18:45 07/19/23 18:45 07/19/23 19:00 Temperature Pulse Rate 62 Respiratory Rate 21 Blood Pressure 160/72 H 134/70 Pulse Oximetry 97 Oxygen Delivery Method 07/19/23 19:00 07/19/23 19:15 07/19/23 19:15 Temperature Pulse Rate 62 71 Respiratory Rate 35 H 12 Blood Pressure 164/74 H Pulse Oximetry 96 98 Oxygen Delivery Method 07/19/23 19:30 07/19/23 19:31 07/19/23 19:31 Temperature Pulse Rate 68 67 Respiratory Rate 25 H 26 H Blood Pressure 147/84 H Pulse Oximetry 98 96 Oxygen Delivery Method MDM - Neuro Symptoms/Deficit Lab Data 07/19/23 17:33 07/19/23 17:33 Labs: Lab Results 07/19/23 07/19/23 07/19/23 Range/Units 17:32 17:33 17:54 WBC 7.2 (4.5-11.0) X10^3/uL RBC 4.38 (4.0-5.2) X10^6/uL Hgb 13.9 (12.0-16.0) g/dL Hct 40.3 (36-46) % MCV 92.1 (80-100) fL MCH 31.7 (26-34) PG MCHC 34.4 (30-36) % RDW 13.4 (11.6-14.8) % Plt Count 249 (150-400) X10^3/uL Neut % (Auto) 53.9 (50-75) % Lymph % (Auto) 34.7 (25-40) % [place] % (Auto) 9.1 (3-14) % Eos % (Auto) 1.5 L (2-4) % Baso % (Auto) 0.8 (0-2) % Neut # (Auto) 3900 (9842-4167) /uL Lymph # (Auto) 2500 (2503-2031) /uL [place] # (Auto) 700 (0-900) /uL Eos # (Auto) 100 (0-450) /uL Baso # (Auto) 100 (0-100) /uL Sodium 133 L (137-145) mmol/L Potassium 3.5 (3.4-5.1) mmol/L Chloride 98 (98-107) mmol/L Carbon Dioxide 23 (22-32) mmol/L BUN 19 H (7-17) mg/dL Creatinine 0.95 (0.52-1.04) mg/dL Estimated GFR > 60 (>60) mL/min BUN/Creatinine Ratio 20.0 (6-22) Glucose 197 H (80-110) mg/dL Calcium 9.8 (8.4-10.2) mg/dL Total Bilirubin 0.9 (0.2-1.3) mg/dL AST 29 (14-36) IU/L ALT 17 (<35) IU/L Alkaline Phosphatase 82 (38-126) U/L Total Protein 7.8 (6.3-8.2) g/dL Albumin 4.4 (3.5-5.0) g/dL Globulin 3.4 (1.7-4.1) g/dL Albumin/Globulin Ratio 1.3 (1.0-2.8) Lipase 152 (23-300) U/L Urine RBC (0-5/HPF) Urine WBC (0-5/HPF) Ur Squamous Epith Cells (0-5/HPF) Ur Renal Epithelial Cell (0-1/HPF) Amorphous Sediment Urine Bacteria (None) Hyaline Casts (None) Ur Culture Indicated? Vol Urine Centrifuged U Opiates 300ng/mL cut Negative (Negative) Ur Oxycodone Screen Positive H (Negative) Urine Methadone Screen Negative (Negative) Ur Barbiturates Screen Negative (Negative) U Tricyclic Antidepress Negative (Negative) Ur Phencyclidine Scrn Negative (Negative) Ur Amphetamines Screen Negative (Negative) U Methamphetamines Scrn Negative (Negative) Ur MDMA Scrn (Ecstasy) Negative (Negative) U Benzodiazepines Scrn Negative (Negative) Urine Cocaine Screen Negative (Negative) U Marijuana (THC) Screen Negative (Negative) Urine pH Normal (Normal) Urine Specific [place] Normal (Normal) Ethyl Alcohol < 10 ( - 10) mg/dL Ur Creatinine Normal (Normal) SARS-CoV-2 (PCR) Negative (Negative) Influenza A (RT-PCR) Flu a negative (NEGATIVE) Influenza B (RT-PCR) Flu b negative (NEGATIVE) RSV (PCR) Negative (Negative) 07/19/23 Range/Units 19:10 WBC (4.5-11.0) X10^3/uL RBC (4.0-5.2) X10^6/uL Hgb (12.0-16.0) g/dL Hct (36-46) % MCV (80-100) fL MCH (26-34) PG MCHC (30-36) % RDW (11.6-14.8) % Plt Count (150-400) X10^3/uL Neut % (Auto) (50-75) % Lymph % (Auto) (25-40) % [place] % (Auto) (3-14) % Eos % (Auto) (2-4) % Baso % (Auto) (0-2) % Neut # (Auto) (9851-0265) /uL Lymph # (Auto) (3720-1727) /uL [place] # (Auto) (0-900) /uL Eos # (Auto) (0-450) /uL Baso # (Auto) (0-100) /uL Sodium (137-145) mmol/L Potassium (3.4-5.1) mmol/L Chloride (98-107) mmol/L Carbon Dioxide (22-32) mmol/L BUN (7-17) mg/dL Creatinine (0.52-1.04) mg/dL Estimated GFR (>60) mL/min BUN/Creatinine Ratio (6-22) Glucose (80-110) mg/dL Calcium (8.4-10.2) mg/dL Total Bilirubin (0.2-1.3) mg/dL AST (14-36) IU/L ALT (<35) IU/L Alkaline Phosphatase (38-126) U/L Total Protein (6.3-8.2) g/dL Albumin (3.5-5.0) g/dL Globulin (1.7-4.1) g/dL Albumin/Globulin Ratio (1.0-2.8) Lipase (23-300) U/L Urine RBC 0-1/hpf (0-5/HPF) Urine WBC 5-10/hpf H (0-5/HPF) Ur Squamous Epith Cells 5-10 /hpf H (0-5/HPF) Ur Renal Epithelial Cell 1-5/hpf H (0-1/HPF) Amorphous Sediment 1+ Urine Bacteria Moderate (10-30) H (None) Hyaline Casts 1-5/lpf (None) Ur Culture Indicated? Specimen cultured Vol Urine Centrifuged 10ml (spun) U Opiates 300ng/mL cut (Negative) Ur Oxycodone Screen (Negative) Urine Methadone Screen (Negative) Ur Barbiturates Screen (Negative) U Tricyclic Antidepress (Negative) Ur Phencyclidine Scrn (Negative) Ur Amphetamines Screen (Negative) U Methamphetamines Scrn (Negative) Ur MDMA Scrn (Ecstasy) (Negative) U Benzodiazepines Scrn (Negative) Urine Cocaine Screen (Negative) U Marijuana (THC) Screen (Negative) Urine pH (Normal) Urine Specific [place] (Normal) Ethyl Alcohol ( - 10) mg/dL Ur Creatinine (Normal) SARS-CoV-2 (PCR) (Negative) Influenza A (RT-PCR) (NEGATIVE) Influenza B (RT-PCR) (NEGATIVE) RSV (PCR) (Negative) Point of Care Testing Glucose POC 209 Urine Dip Bedside Urine Glucose Negative Bedside Urine Bilirubin - Negative Bedside Urine Ketone - Negative Urine Specific [place] 1.01 Bedside Urine Occult Blood +/- Bedside Urine pH 6 Bedside Urine Protein - Negative Bedside Urine Urobilinogen - Negative Bedside Urine Nitrite - Negative Bedside Urine Leukocytes + 70 Esterase ECG Data Interpretation: ECG obtained at 5:52 p.m. shows sinus rhythm at 60 beats per minute there is a right bundle-branch block and nonspecific inferior T-wave ST wave changes. MDM Narrative Medical decision making narrative: No apparent cause for syncope identified. No seizure-like activity observed. She has no specific complaints at all. She is back to baseline now. ECG shows sinus rhythm. She has no chest symptoms at all. Vital signs are reassuring other than mild hypertension. Discharge Plan Departure Patient Disposition: Home Clinical Impression: Syncope Instructions: DI for Syncope in Adults (Fainting) Activity Restrictions/Additional Instructions: No dangerous cause for this fainting event was identified. Interestingly, there is narcotic in the urine drug test. I strongly urge you to check through all the medications at home and make sure that there is no narcotics there at all and if you find any you should dispose of them. If there was an accidental narcotic ingestion this could explain excessive sleepiness. I recommend follow- up with primary care provider in the next 1 or 2 weeks to discuss the events today to see if further investigation may be indicated. If recurrent symptoms happen I recommend return to the ED. Prescriptions: No Action carvedilol 12.5 mg tablet 12.5 mg PO BID Qty: 180 3RF losartan 25 mg tablet 25 mg PO DAILY Qty: 90 3RF clopidogrel 75 mg tablet 75 mg PO DAILY Qty: 90 3RF atorvastatin 40 mg tablet 40 mg PO BEDTIME Qty: 90 3RF aspirin 81 mg tablet,delayed release (DR/EC) 81 mg PO DAILY Qty: 90 3RF Referrals: Karthikeyan Das MD [Primary Care Provider] - Stand Alone Forms: Patient Portal/API
[2023-07-19 19:15] LABS: COVID-19 CEPHEID 4-PLEX PCR Negative (Negative)
[2023-07-19 19:38] LABS: Urine Volume 10mL (spun)
[2023-07-19 19:39] LABS: Bacteria Urine Moderate (10-30); RBC Urine 0-1/HPF (0-5/HPF); WBC Urine 5-10/HPF (0-5/HPF)
[2023-07-19 19:40] LABS: Amorphous Sediment Urine 1+; Culture Indicated Urine Specimen Cultured; Hyaline Casts Urine 1-5/LPF; Renal Epithelial Cells Urine 1-5/HPF (0-1/HPF); Squamous Epithelial Cell Urine 5-10 /HPF (0-5/HPF)
== END 2023-07-19 20:37 | disposition home or self-care (01) ==
PROVIDERS: Emergency Medicine; Emergency Provider Family Medicine Addiction Medicine; Family Provider Student in an Organized Health Care Education/Training Program; PCP Student in an Organized Health Care Education/Training Program
DX: R55 Syncope and collapse (principal); R07.9 Chest pain, unspecified; Z20.822 Contact with and (suspected) exposure to COVID-19
CPT/HCPCS: 0241U; 70450; 70496; 70498; 80053; 80305; 80320; 81003; 81015; 82962; 83690; 85025; 87086; 93005; 99284; Q9967

== ENCOUNTER 2023-10-24 10:18 | Emergency (ER) | payer MEDICARE, OTHER, SELFPAY ==
[2020-07-01 17:13] VITALS: BMI 17.8
[2023-10-24 10:27] VITALS: BP 181/93; PULSE 103; RESP 20; TEMP 36.6; O2SAT 98
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
[2023-10-24] MEDS: QUETIAPINE 25 MG TABLET 50 MG PO (10:43)
[2023-10-24 11:31] LABS: Add Manual Diff / Slide Review NO; Basophils Absolute Auto 100 /uL (0-100); Basophils Percent Auto 0.8 % (0-2); Eosinophils Absolute Auto 0 /uL (0-450); Eosinophils Percent Auto 0.3 % (2-4); Hemoglobin 14.2 g/dL (12.0-16.0); Lymphocytes Absolute Auto 1100 /uL (1100-4500); Mean Corpuscular HGB Conc 33.9 % (30-36); Mean Corpuscular Hemoglobin 31.7 PG (26-34); Mean Corpuscular Volume 93.6 fL (80-100); Monocytes Absolute Auto 600 /uL (0-900); Monocytes Percent Auto 9.3 % (3-14); Neutrophils Absolute Auto 4400 /uL (1500-7000); Neutrophils Percent Auto 71.6 % (50-75); Platelet Count 232 X10^3/uL (150-400); Red Blood Cell Count 4.49 X10^6/uL (4.0-5.2); White Blood Cell Count 6.2 X10^3/uL (4.5-11.0)
[2023-10-24 11:43] LABS: Alanine Aminotransferase 32 IU/L (<35); Albumin 4.4 g/dL (3.5-5.0); Albumin Globulin Ratio 1.5 (1.0-2.8); Alkaline Phosphatase 105 U/L (38-126); Aspartate Aminotransferase 37 IU/L (14-36); BUN Creatinine Ratio 20.3 (6-22); Bilirubin Total 0.8 mg/dL (0.2-1.3); Blood Urea Nitrogen 15 mg/dL (7-17); Calcium 9.4 mg/dL (8.4-10.2); Carbon Dioxide 26 mmol/L (22-32); Chloride 106 mmol/L (98-107); Estimated Glomerular Filt Rate > 60 mL/min (>60); Glucose 133 mg/dL (80-110); HEMOLYSIS < 15 (0-50); Potassium 3.9 mmol/L (3.4-5.1); Sodium 139 mmol/L (137-145); Total Protein 7.4 g/dL (6.3-8.2)
[2023-10-24 12:13] LABS: Thyroid Stimulating Hormone 1.17 uIU/mL (0.47-4.68)
[2023-10-24 13:19] LABS: Appearance Urine UA CLEAR; Bilirubin Urine UA NEGATIVE (NEGATIVE); Color Urine UA YELLOW; Glucose Urine UA NEGATIVE (Negative); Ketones Urine UA NEGATIVE (NEGATIVE); Leukocyte Esterase Urine UA TRACE (NEGATIVE); Nitrite Urine UA NEGATIVE (Negative); Occult Blood Urine UA NEGATIVE (Negative); Protein Urine UA NEGATIVE (Negative); Urobilinogen Urine UA 0.2 E.U./dL (0.2)
[2023-10-24 13:21] LABS: pH Urine UA 7.5 (4.5-8.0)
[2023-10-24 13:42] LABS: Bacteria Urine None Seen; Culture Indicated Urine Specimen Cultured; RBC Urine None Seen (0-5/HPF); Squamous Epithelial Cell Urine 0-1 /HPF (0-5/HPF); Urine Volume 10mL (spun); WBC Urine None Seen (0-5/HPF)
[2023-10-24 14:02] VITALS: BP 175/80; PULSE 98; RESP 16; TEMP 36.1; O2SAT 99
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
--- NOTE | 2023-10-28 11:56 | CM.SWNOTE ---
ED COOKY MACHINE OPERATOR Note: COOKY MACHINE OPERATOR received a voice message from Juan Diego Del Castillo from [facility] [employer] (#[phone]). COOKY MACHINE OPERATOR was able to provide more information regarding the APS Report placed by other ED COOKY MACHINE OPERATOR on 10/24/23 (APS Online Report Confirmation Number: [id number]). COOKY MACHINE OPERATOR updated APS on pt's Primary Care Provider (Dr. Nehemias Velázquez) and dx given in the ED (suspicions of Dementia but not formally assessed and agitation). APS CM asked about pt's last presentation to the ED prior to this visit as well as last PCP appointment date. No other information was needed for the investigation at this time. OMARI Nieves
== END 2023-10-24 14:08 | disposition home or self-care (01) ==
PROVIDERS: Emergency Provider Emergency Medicine; Family Provider Student in an Organized Health Care Education/Training Program; PCP Family Medicine
DX: R45.1 Restlessness and agitation (principal)
CPT/HCPCS: 36415; 80053; 81001; 84443; 85025; 87086; 99283

== ENCOUNTER 2023-11-29 07:01 | Observation (INO) | payer MEDICARE, OTHER, SELFPAY ==
[2020-07-01 17:13] VITALS: BMI 17.8
[2023-11-29 07:04] VITALS: BP 193/99; PULSE 118; RESP 22; TEMP 36.7; O2SAT 99
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
[2023-11-29 07:20] LABS: Add Manual Diff / Slide Review NO; Basophils Absolute Auto 0 /uL (0-100); Basophils Percent Auto 0.6 % (0-2); Eosinophils Absolute Auto 100 /uL (0-450); Eosinophils Percent Auto 1.3 % (2-4); Hematocrit 44.9 % (36-46); Hemoglobin 15.4 g/dL (12.0-16.0); Lymphocytes Absolute Auto 2600 /uL (1100-4500); Lymphocytes Percent Auto 44.3 % (25-40); Mean Corpuscular HGB Conc 34.4 % (30-36); Mean Corpuscular Hemoglobin 32.1 PG (26-34); Mean Corpuscular Volume 93.3 fL (80-100); Monocytes Absolute Auto 700 /uL (0-900); Monocytes Percent Auto 10.9 % (3-14); Neutrophils Absolute Auto 2600 /uL (1500-7000); Neutrophils Percent Auto 42.9 % (50-75); Platelet Count 220 X10^3/uL (150-400); Red Blood Cell Count 4.81 X10^6/uL (4.0-5.2)
[2023-11-29 07:33] LABS: Alanine Aminotransferase 23 IU/L (<35); Albumin 4.6 g/dL (3.5-5.0); Albumin Globulin Ratio 1.4 (1.0-2.8); Alkaline Phosphatase 101 U/L (38-126); Aspartate Aminotransferase 34 IU/L (14-36); BUN Creatinine Ratio 14.8 (6-22); Bilirubin Total 1.2 mg/dL (0.2-1.3); Blood Urea Nitrogen 12 mg/dL (7-17); Calcium 9.3 mg/dL (8.4-10.2); Carbon Dioxide 23 mmol/L (22-32); Chloride 106 mmol/L (98-107); Estimated Glomerular Filt Rate > 60 mL/min (>60); Globulin 3.4 g/dL (1.7-4.1); Glucose 169 mg/dL (80-110); HEMOLYSIS < 15 (0-50); Potassium 3.7 mmol/L (3.4-5.1); Sodium 138 mmol/L (137-145)
[2023-11-29] MEDS: QUETIAPINE 25 MG TABLET 50 MG PO ×3 (07:45→21:18)
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
[2023-11-29 09:13] LABS: Appearance Urine UA CLEAR; Bilirubin Urine UA NEGATIVE (NEGATIVE); Color Urine UA YELLOW; Glucose Urine UA NEGATIVE (Negative); Ketones Urine UA NEGATIVE (NEGATIVE); Leukocyte Esterase Urine UA 2+ (NEGATIVE); Nitrite Urine UA NEGATIVE (Negative); Occult Blood Urine UA NEGATIVE (Negative); Protein Urine UA NEGATIVE (Negative); Urobilinogen Urine UA 0.2 E.U./dL (0.2)
[2023-11-29 09:33] LABS: RBC Urine 0-1/HPF (0-5/HPF); Urine Volume 10mL (spun); WBC Urine 1-5/HPF (0-5/HPF); pH Urine UA 7.5 (4.5-8.0)
[2023-11-29 09:34] LABS: Bacteria Urine Occasional (0-1); Culture Indicated Urine Specimen Cultured; Squamous Epithelial Cell Urine 1-5 /HPF (0-5/HPF)
--- NOTE | 2023-11-29 10:10 | PC.NURSE ---
Patient restless, pacing in room, trying to leave department. Took patient on a small walk around department. Moved to more visible room. Offered coloring supplies. Patient declined
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
[2023-11-29] MEDS: HALOPERIDOL 5 MG/ML VIAL IM (11:08)
--- NOTE | 2023-11-29 11:15 | PC.NURSE ---
pt is wondering around the ER , attempting to go into rooms. walk out of the ambulance bay . Dr. Stallings aware. some more meds were ordered and given to patient
[2023-11-29 11:35] VITALS: BP 142/76; RESP 122
--- NOTE | 2023-11-29 12:21 | PC.NURSE ---
Meal tray provided patient didn't consume much food
[2023-11-29 14:01] LABS: Ethanol (ETOH) < 10 mg/dL
[2023-11-29 14:21] LABS: COVID19 -Nasal RAPID Negative (Negative)
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
--- NOTE | 2023-11-29 18:08 | CM.SWNOTE ---
ED WEB ANALYTICS SPECIALIST Note: At 1200, WEB ANALYTICS SPECIALIST called [facility] geripsych unit, it was reported that there are beds available and to send a packet for review. NATALYA Cherry arrived at bedside to perform TJ assessment. Patient was officially under TJ status at 1625. NATALYA Cherry spoke with pt's son, Alexis, and obtained copies of pt's Healthcare advanced directives and Durable Power of Stream Control Officer - asked registration to scan into chart. WEB ANALYTICS SPECIALIST sent packet for review to [facility] (fax#[phone]). WEB ANALYTICS SPECIALIST called [facility] to follow up on packet sent, it was reported that the beds are no longer available. Barrier: All specialized facilities for geripsych are currently full and all other facilities are not accepting pts with dementia dx. NATALYA Cherry and ED staff still searching for an TJ bed. OMARI Nieves
[2023-11-29 18:56] VITALS: RESP 18
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
[2023-11-29 19:00] VITALS: BP 164/88; PULSE 98; RESP 18; O2SAT 98
--- NOTE | 2023-11-29 19:31 | PC.NURSE ---
Pt resting back in [facility]. Eyes closed. Assume alseep.
[2023-11-29 20:00] VITALS: BP 165/85; PULSE 65; RESP 25; O2SAT 94
--- NOTE | 2023-11-29 20:41 | PC.NURSE ---
Pt up in room ambulating with caregiver. Using walker and gait belt. Pt tolerated well. Caregiver states that pt is doing really well and is a night and day difference.
--- NOTE | 2023-11-29 20:54 | PC.NURSE ---
This distribution center administrator witnessed pt try to crawl out of bed; redirected pt back to bed; pt stated shut up your making such loud noises this sitter remains at bedside
--- NOTE | 2023-11-29 21:18 | PC.NURSE ---
Pt up in room, opening door and coming into hallway. Pt wanting to leave room and wander in hallway. Tried to retun to room. Pt returned. Medicated with night time Seroquel.
[2023-11-29] MEDS: DIVALPROEX 125 MG CAP PO (22:41)
--- NOTE | 2023-11-30 00:53 | PC.NURSE ---
pt resting in bed respirations even and unlabored; no distress noted.
--- NOTE | 2023-11-30 01:35 | PC.NURSE ---
Pt laying back in [facility]. Eyes closed, assume asleep.
--- NOTE | 2023-11-30 03:39 | PC.NURSE ---
pt is awake and wondering in room this sitter remains at bedside
[2023-11-30 08:16] VITALS: PULSE 84; O2SAT 99
[2023-11-30 08:22] VITALS: BP 186/91; PULSE 84; O2SAT 99
[2023-11-30] MEDS: QUETIAPINE 25 MG TABLET PO ×3 (08:55→18:23)
[2023-11-30] MEDS: DIVALPROEX 125 MG CAP PO ×2 (08:59→15:45)
--- NOTE | 2023-11-30 09:26 | PC.NURSE ---
Hx dementia w/ recent outburst w/ . Pt remains calm and cooperative w/ staff. Pt ambulates and eats w/o assistance. Pending social work help.
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
--- NOTE | 2023-11-30 12:15 | PC.NURSE ---
reassess; no change
[2023-11-30 14:31] VITALS: BP 160/88
--- NOTE | 2023-11-30 16:35 | PC.NURSE ---
PASTRY COOK APPRENTICE Note: pt ambulated around the department multiple times
--- NOTE | 2023-11-30 19:15 | PC.NURSE ---
Addendum entered by Vero Barker R.N. 11/30/23 22:40: 2100 meds delayed d/t patient appearing to rest comfortably, decision made to allow sleep at this time. 2200 assessment, patient appears to have no acute changes in mental status prior to assessment and was resting comfortably at time of reassessment. Original Note: Assumed care of patient at 1800.
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
[2023-12-01 08:05] VITALS: PULSE 79; O2SAT 98
[2023-12-01 08:06] VITALS: PULSE 78; O2SAT 98
[2023-12-01] MEDS: QUETIAPINE 25 MG TABLET PO ×3 (08:09→17:58)
[2023-12-01] MEDS: DIVALPROEX 125 MG CAP PO ×3 (08:09→20:09)
[2023-12-01 08:11] VITALS: BP 172/88; PULSE 76; RESP 16; O2SAT 98
--- NOTE | 2023-12-01 08:15 | PC.NURSE ---
Pt able to brush her teeth and wash her face independently, although needing some prompting. Pt took scheduled medications this morning without difficulty. Pt ate about 25% of breakfast this morning.
--- NOTE | 2023-12-01 13:29 | DI.CT.S_ITS ---
PROCEDURE: CT HEAD/BRAIN WO CON INDICATIONS: ams TECHNIQUE: Noncontrast 4.5 mm thick angled axial sections acquired from the foramen magnum to the vertex, with coronal and sagittal reformats. For radiation dose reduction, the following was used: automated exposure control, adjustment of mA and/or kV according to patient size. COMPARISON: [facility], CT, CT HEAD/BRAIN WO CON, 07/19/2023, 18:18. FINDINGS: Image quality: Diagnostic. CSF spaces: Basal cisterns are patent. No extra-axial fluid collections. The ventricles are symmetric in size and shape. Brain: No intracranial bleeds or masses. There is cerebral volume loss for age, with resultant ventricular and sulcal prominence. There are moderate periventricular and deep white matter chronic small vessel ischemic changes. 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 There is intracranial internal carotid artery atherosclerosis. Skull and face: Calvarium and visualized facial bones appear intact, without suspicious lesions. Sinuses: Visualized sinuses and mastoids are clear. IMPRESSION: 1. No acute intracranial process 2. Findings are stable. 3. Small vessel ischemic change, old infarct. Dictated by: Jordon Hays M.D. on 12/01/2023 at 14:14 Approved by: Jordon Hays M.D. on 12/01/2023 at 14:20
[2023-12-01 14:20] VITALS: BMI 18.2
[2023-12-01 14:31] VITALS: BP 139/84; PULSE 81; O2SAT 97
--- NOTE | 2023-12-01 15:03 | CM.SWNOTE ---
ED METAL FABRICATOR APPRENTICE Note: ED METAL FABRICATOR APPRENTICE returned this morning, patient still in ED room. Per ED Staff, Pt's came to bedside this morning at around 0800 and discussed with ED Provider that he would like to take patient home. ED staff requesting that this METAL FABRICATOR APPRENTICE coordinate a family meeting to discuss discharge plans. 1134: ED METAL FABRICATOR APPRENTICE attempted to call both phone numbers on file for . Cell number on file is no longer in service. Home number on file was answered by assumingly the daughter/HC POA, Shirley. Call was answered, pathology secretary/transcriptionist asked what it was regarding and call was abruptly ended. Pt's was no longer in the area. ED METAL FABRICATOR APPRENTICE called pt's son/DPOAAlexis, regarding pt claims that he would be able to take care of pt with new behavior medications which are assisting pt's behavior. Per son, pt's historically has been difficult to contact. Per son, patient's had a doctor's appointment this morning, I am at the point where I think I should take his care keys away from him. Per son regarding the decision for pt to discharge home, Dad can't be making these decisions. He will forget he even went to the hospital. ED METAL FABRICATOR APPRENTICE was not able to coordinate a family meeting due to not being able to contact pt's . 1200: ED METAL FABRICATOR APPRENTICE returned call from Stephanie Bergman (ph#[phone]), Care in Home Services with [facility]. Per Stephanie, she is no longer the hospice case manager as the ILYA assessment was completed approximately 5-6 weeks ago and although patient qualified for terminal operations supervisor care services, the application was rescinded at the request of the patient. Per Stephanie, guardianship will still be needed because pt is still able to verbalize needs (even with dementia dx). Healthcare POA will only be accepted if patient is nonverbal. It was recommended that if pt gets admitted in hospital, to place a new referral for their acute care team to complete a bedside assessment. ED METAL FABRICATOR APPRENTICE to contact [facility] Acute Hospital branch Sonia Brooks to send new referral and request to schedule hospital assessment. Plan: No safe discharge with family coordinated, patient to admit in acute care. team to follow up with [facility] referral to continue with usp care placement. OMARI Nieves
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
[2023-12-01 19:10] VITALS: BP 150/94; PULSE 104; RESP 18; TEMP 36.8; O2SAT 99
[2023-12-01] MEDS: ATORVASTATIN 20 MG TABLET 40 MG PO (20:08)
[2023-12-01] MEDS: DONEPEZIL 5 MG TABLET 10 MG PO (20:08)
[2023-12-01] MEDS: carvediloL 12.5 MG TABLET PO (20:09)
[2023-12-01] MEDS: LOSARTAN 25 MG TABLET PO (20:09)
[2023-12-01] MEDS: QUETIAPINE 25 MG TABLET 50 MG PO (20:09)
--- NOTE | 2023-12-01 20:38 | PC.NURSE ---
Addendum entered by Tiki Pineda R.N. 12/02/23 06:36: No complications overnight. Patient resting in bed watching TV & reading magazine. Original Note: shift coordinator: Patient is alert and oriented to self. VSS. Denies pain or discomfort, no signs of distress. Ambulates independently in the room w/ supervision, pacing around the room at times. Took ordered PO medications w/o difficulty. Brushed teeth & went to bathroom, currently resting in bed with eyes closed, breathing unlabored. Plan of care ongoing.
[2023-12-02] MEDS: SERTRALINE 50 MG TABLET PO (08:14)
[2023-12-02] MEDS: carvediloL 12.5 MG TABLET PO (08:14)
[2023-12-02] MEDS: DIVALPROEX 125 MG CAP PO ×2 (08:14→15:57)
[2023-12-02] MEDS: ASPIRIN EC 81 MG TABLET PO (08:14)
[2023-12-02] MEDS: CLOPIDOGREL 75 MG TABLET PO (08:14)
[2023-12-02] MEDS: LOSARTAN 25 MG TABLET PO (08:14)
[2023-12-02] MEDS: QUETIAPINE 25 MG TABLET PO ×3 (08:27→18:25)
--- NOTE | 2023-12-02 08:50 | OT.IP.EVAL ---
Current Diagnoses Unspecified dementia, unspecified severity, with other behavioral disturbance (12/01/23) Past Medical History (Last Reviewed 11/29/23 @ 07:14 by Elvia Stallings MD) Anxiety Chicken pox Dementia Essential hypertension Hypertensive urgency Infarction of left basal ganglia Measles Migraines Recurrent sinusitis Vertigo Surgical History (Last Reviewed 11/29/23 @ 07:14 by Elvia Stallings MD) History of tonsillectomy Status post breast biopsy Occupational Therapy Inpatient Evaluation/Re-Eval M1 PT/OT-IP Prior Functional Status Start: 12/02/23 08:56 Freq: NEEDED Status: Active Protocol: Document 12/02/23 08:57 [facility] (Rec: 12/02/23 09:10 [facility] [id number]) Medical Review Prior Functional Status Activities of Daily Living and IADL's Pt's assist with all IADL needs and supervision and assist for ADL needs due to her dementia. Social History Household Members spouse,children Living Arrangements House Additional Social History Comment Pt unable to state her home set-up/ M2 OT-IP Current Condition Start: 12/02/23 08:56 Freq: Status: Active Protocol: Document 12/02/23 08:57 [facility] (Rec: 12/02/23 09:10 [facility] [id number]) Occupational Therapy Current Condition Current Condition Evaluation Date 12/02/23 Treatment Diagnosis Dementia and acute aggression Diagnosis Onset Date 12/01/23 M3 OT- IP Subjective and Pain Start: 12/02/23 08:56 Freq: Status: Active Protocol: Document 12/02/23 08:57 [facility] (Rec: 12/02/23 09:10 [facility] [id number]) OT- Subjective Occupational Therapy Visit Type Type Initial Evaluation Visit Start Time 08:30 Visit Stop Time 08:50 Notes Hospitalist ordered OT for Pt for SLUMS. Occupational Therapy Visit Comments Patient Comments Pt agreed to do SLUMS. M5 OT- IP IADL's Start: 12/02/23 08:56 Freq: Status: Active Protocol: Document 12/02/23 08:57 [facility] (Rec: 12/02/23 09:10 [facility] [id number]) OT-Instrumental Activities of Daily Living Deficits IADL Deficits Identified Deficits Home Safety Awareness Awareness of Need for Assistance at Home Decreased Awareness Ability to Problem Solve Emergency Unable to Problem Solve Situations Medication Management Medication Management Caregiver Administers Money Management Money Management Caregiver Provides Assistance Meal Preparation Meal Preparation Caregiver Provides Assist Wire Spooler Wire Spooler Caregiver Provides Assist M6 OT- IP Functional Cognition Start: 12/02/23 08:56 Freq: Status: Active Protocol: Document 12/02/23 08:57 [facility] (Rec: 12/02/23 09:10 [facility] [id number]) Cognitive Factors Limiting Selfcare Function Cognitive Ability Level of Alertness Alert,Confusional State Patient Orientation Name Attention Span Ability Capable of Focused Attention, Unable to Focus,Unable to Sustain Attention Ability to Follow Commands Able to Follow One Step Commands with Increased Time, Able to Follow One Step Commands with Repetition Memory Description 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,Telephone Installer Impaired,Working Impaired Cognitive Tests SLUMS Pt scored 2/[address] an x on the triangle and pick out the largest shape. Pt scored implies dementia. Pt scored 3/30 on 07/02/20 when here for syncope and subsequently found to have a subacute infarct of left basal ganglia. Cognitive Comments Cognitive Assessment Comments Pt mainly just orientated to her name. Pt has flat affect and at times perseverates on answers and kept repeating 24 for several items on the SLUMs , and pt also would also state , I just don't know. M7 OT- IP Mobility and Balance Start: 12/02/23 08:56 Freq: Status: Active Protocol: Document 12/02/23 08:57 [facility] (Rec: 12/02/23 09:10 [facility] [id number]) OT-Transfer Assessment Comments Mobility Comments Per nursing, pt able to move on her feet but just needing supervision for safety as pt tends to wander. M9 OT- IP Assessment and Plan Start: 12/02/23 08:56 Freq: Status: Active Protocol: Document 12/02/23 08:57 [facility] (Rec: 12/02/23 09:10 [facility] [id number]) OT Summary Assessment and Plan Potential Rehabilitation Potential Poor Analytic Complexity at Evaluation Moderate Summary Assessment Summary Pt low complexity and just evaluated for SLUMS score. Pt scored 2/30 which implies dementia. Pt will need 24/7 supervision and assist as needed due to her dementia. Discharge pt from OT services. Frequency of Treatment Frequency Of Treatment Discharge Discharge Recommendations Other Discharge Recommendations Memory care versus home with 24/7 assist if pt's family able to provide adequate assistance. Transportation Needs at Discharge Private Vehicle
--- NOTE | 2023-12-02 10:11 | DIET.CONS ---
Dietary Consultation Note Admission Date: 12/01/2023 14:03 Assessment: 78 y F presents with dementia with acute aggression. Nutrition screened for MNA. Chart reviewed. Recorded po intakes avg 60% during stay. Ht: 165.1 cm Wt: 49.7 kg BMI: 18.2 (underweight for age) UBW: 52.637 kg on 08/12/23 (-5.6% weight loss in 4 months, non severe) Last BM: () MNA: Sharad Score: 22 Diet: 12/01/23 Lunch General (Regular) Diet Diet Modifications: Food Texture: Level 7 - Regular Liquid Consistency: Level 0 - Thin Nutrition Percent Meal Consumed 75% 12/02/23 08:40 Percent Meal Consumed 50% 12/01/23 17:29 Percent Meal Consumed 25% 12/01/23 15:28 Percent Meal Consumed 100% 12/01/23 12:02 Percent Meal Consumed 35 12/01/23 08:16 Percent Meal Consumed 75% 11/30/23 16:45 Labs: RBC 4.81 X10^6/uL (4.0-5.2) 11/29/23 07:10 Hgb 15.4 g/dL (12.0-16.0) 11/29/23 07:10 Hct 44.9 % (36-46) 11/29/23 07:10 Creatinine 0.81 mg/dL (0.52-1.04) 11/29/23 07:10 Nutrition Diagnosis: Unintentional weight loss r/t to decreased ability to consume sufficient energy aeb 5.6% weight loss in 4 months, non-severe Interventions: 1. ONS BID to support adequate intake EER: 1195-2405 kcals (30-35 kcals/kg per BMI) 50-60 g protein (1 g/kg per age) Monitoring/Evaluations: po intakes, weight Electronically Signed by: Marianna Reynolds 12/02/23 10:11 Clinical Dietitian [address] [address]
--- NOTE | 2023-12-02 10:42 | PC.NURSE ---
Addendum entered by Lucy Vazquez R.N. 12/02/23 12:05: This nurse observed pt eating lunch with a straw, attempted to introduce fork and pt refused. States no further needs at this time Addendum entered by Lucy Vazquez R.N. 12/02/23 11:29: Haldol 5mg administered by rafiq Hand nurse for pt aggressive behavior. Pt would not take any medication from this nurse. Pt sitting in bed, bed low and locked, call light within reach, no further needs at this time. Addendum entered by Lucy Vazquez R.N. 12/02/23 11:20: Pt becoming increasingly more aggressive, pacing the halls and being very verbally abusive to this nurse. When this nurse showed pt where her room is (after pt made many attempts to enter other pts rooms) pt stormed into room and closed door. This nurse opened door as small amount for safety, pt sitting on bed at this time, no further needs. Original Note: Dayshift note: Pt anxious, verbally aggressive, not able to make statements that make sense, does state I want to leave, why do I have to be here? Walked with patient twice around the unit, where she asked how do I get out of here?, convinced pt to go back to her own room after many attempts to walk into other patient rooms. Currently resting in the bed talking to herself, denies any further needs at this time.
[2023-12-02] MEDS: haloperidoL 5 MG TABLET PO ×2 (11:28→15:58)
--- NOTE | 2023-12-02 14:16 | CM.DPC ---
DCP Cont. Reviewed EMR and team rounds for status updates. Sent an email to Sonia Brooks at [facility] requesting they expedite pt's date for functional assessment. Faxed in HIP form to expedite to Acute Hospital Team. Will f/u again tomorrow and monitor for next steps.
--- NOTE | 2023-12-02 15:00 | P.PN_ITS ---
Subjective Subjective Interval history: Patient says she feels fine and doesn't need anything. Walked the halls today with 1:1 supervision. Had intermittent bouts of agitation improved with po haldol PRN. Exam Vital Signs (past 8 hours): Oxygen Delivery Method Room Air Oxygen Flow Rate 0 Narrative Exam Narrative: GEN: demented, anxious, thin HEENT: moist mucous membranes, PERRL NECK: trachea midline, no JVD CV: regular rate and rhythm, no murmurs PULM: clear bilaterally ABD: soft, nontender, nondistended, no organomegaly EXT: warm and well perfused with no edema NEURO: Unobtainable Objective Labs 11/29/23 07:10 11/29/23 07:10 [facility] Medical History Dementia Infarction of left basal ganglia Essential hypertension Hypertensive urgency Anxiety Migraines Measles Chicken pox Vertigo Recurrent sinusitis Surgical History Status post breast biopsy History of tonsillectomy Family History Mother Memory impairment Father of unknown cause Social History household members: spouse and children Smoking Status: Never smoker alcohol intake: never Assessment & Plan Assessment & Plan narrative: # dementia with acute aggression -social work consulted and attempting placement in memory care -continue Seroquel and Depakote Sprinkles -po haldol PRN for agitation, has helped thus far -continue donepezil # previous CVA -continue DAPT # HTN -continue coreg and losartan # HLD -continue statin # depression -continue sertraline Code status is presumed full code. DVT prophylaxis with nothing, patient is ambulatory Proxy is son Alexis. Dispo: Will need memory care placement. Could take weeks. Quality VTE Deep Vein Thrombosis/Pulmonary Embolism Present on Admission: No
[2023-12-02 18:12] VITALS: BP 148/69; PULSE 58; RESP 16; TEMP 36; O2SAT 98
[2023-12-02 19:38] VITALS: BP 199/66; PULSE 52; TEMP 36.6; O2SAT 98
--- NOTE | 2023-12-02 19:51 | EKG_ITS ---
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
[2023-12-02 20:06] VITALS: BP 127/67; PULSE 55; RESP 14; O2SAT 96
--- NOTE | 2023-12-02 20:11 | DI.CT.S_ITS ---
PROCEDURE: CT HEAD/BRAIN WO CON INDICATIONS: rule out stroke TECHNIQUE: Noncontrast 4.5 mm thick angled axial sections acquired from the foramen magnum to the vertex, with coronal and sagittal reformats. For radiation dose reduction, the following was used: automated exposure control, adjustment of mA and/or kV according to patient size. COMPARISON: [facility], CT, CT HEAD/BRAIN WO CON, 12/01/2023, 13:55. [facility], CT, CT HEAD/BRAIN WO CON, 07/19/2023, 18:18. FINDINGS: Image quality: Diagnostic. CSF spaces: Basal cisterns are patent. No extra-axial fluid collections. The ventricles are symmetric in size and shape. Brain: No intracranial bleeds or masses. There is moderate cerebral volume loss for age, with resultant ventricular and sulcal prominence. There are moderate periventricular and deep white matter chronic small vessel ischemic changes. Stable appearance of remote infarction involving the left caudate lobe. There is intracranial internal carotid artery atherosclerosis. Skull and face: Calvarium and visualized facial bones appear intact, without suspicious lesions. Sinuses: Visualized sinuses and mastoids are clear. IMPRESSION: 1. CT head without acute intracranial abnormalities or acute calvarial fractures. 2. Age-related senescent changes and sequela of chronic small vessel ischemic disease. 3. Stable appearance remote infarction of the left caudate lobe. If there is persistent or high clinical suspicion for acute cerebrovascular ischemia/stroke, more sensitive evaluation with brain MRI can be considered. Dictated by: Shiv Sims M.D. on 12/02/2023 at 20:39 Approved by: Shiv Sims M.D. on 12/02/2023 at 20:40
--- NOTE | 2023-12-02 21:32 | PC.NURSE ---
NOC Shift Note- Patient confused, impulsive, and restless. Patient found outside of room walking in hallway as I was attempting to get patients evening medications. Patient stated she was looking for her bed, while trying to redirect patient to her room and where her bed was located patient began swaying. Tried to get patient to sit down in near by wheelchiar. Patient continued to refused while getting notably more unstable. ASIA Hatch came to help in time to help keep patient from falling. BUSINESS RELATIONSHIP MANAGER cam and repositioned wheelchair to set patient down. Patients eyes remained open and appeared to roll back for a moment. After sitting patient down in wheelchair she closed her eyes but did responded with yes or no to questions. Took 3 nurses max assist to get patient from wheel chair to bed, no assistance from patient. vital signs taken with BP elevated at 199/96 and heart rate low at 52. Blood glucose was 96. Called Dr. Lara to inform and received orders for EKG, IV start, and mhydralazine 10MG IV for elevated BP. While continuing to assess patient left sided facial change noted. Difficult to assess patient for stroke symptoms due to patients dementia and patient ablity to answer questions appropriatly. Dr. Lara also informedof concerns of facial changes. Head CT without contrast ordered. IV hydralazine note given to to BP significantly lowe4d at 127/67 when rechecked approx 10minutes later. Patient refused to take any of her evening medications. patient currently in bed resting quietly with eyes closed. Paient in view of nurses [id number] for fequent visual checks for safety. Will continue to monitor,
[2023-12-03 02:06] VITALS: BP 127/67; PULSE 55
[2023-12-03 03:00] VITALS: BP 148/64; PULSE 66; RESP 15; TEMP 35.9; O2SAT 98
[2023-12-03 07:48] VITALS: BP 137/84; PULSE 78; RESP 16; TEMP 36.6; O2SAT 97
[2023-12-03] MEDS: DIVALPROEX 125 MG CAP PO ×2 (08:33→15:51)
[2023-12-03] MEDS: ASPIRIN EC 81 MG TABLET PO (08:33)
[2023-12-03] MEDS: SERTRALINE 50 MG TABLET PO (08:33)
[2023-12-03] MEDS: CLOPIDOGREL 75 MG TABLET PO (08:33)
[2023-12-03 08:34] VITALS: BP 137/84; PULSE 78
[2023-12-03] MEDS: LOSARTAN 25 MG TABLET PO (08:34)
[2023-12-03] MEDS: QUETIAPINE 25 MG TABLET PO ×3 (08:37→18:56)
[2023-12-03] MEDS: carvediloL 12.5 MG TABLET PO (08:40)
[2023-12-03 12:27] VITALS: BP 133/70; PULSE 64; RESP 16; TEMP 36.6; O2SAT 97
--- NOTE | 2023-12-03 13:52 | P.PN_ITS ---
Subjective Subjective Interval history: Overnight nurse noted increased weakness, CT head ordered and was negative. Placed on tele but patient pulled it off this AM. She is constipated so laxatives ordered. Exam Vital Signs (past 8 hours): - 12/03/23 07:48 12/03/23 08:34 12/03/23 12:27 Temperature 97.9 F 97.9 F Pulse Rate 78 78 64 Respiratory Rate 16 16 Blood Pressure 137/84 137/84 133/70 Pulse Oximetry 97 97 Oxygen Delivery Method Room Air Oxygen Flow Rate 0 Narrative Exam Narrative: GEN: demented, calm, thin HEENT: moist mucous membranes, PERRL NECK: trachea midline, no JVD CV: regular rate and rhythm, no murmurs PULM: clear bilaterally ABD: soft, nontender, nondistended, no organomegaly EXT: warm and well perfused with no edema NEURO: moving all extremities Objective Labs 11/29/23 07:10 11/29/23 07:10 [facility] Medical History Dementia Infarction of left basal ganglia Essential hypertension Hypertensive urgency Anxiety Migraines Measles Chicken pox Vertigo Recurrent sinusitis Surgical History Status post breast biopsy History of tonsillectomy Family History Mother Memory impairment Father of unknown cause Social History household members: spouse and children Smoking Status: Never smoker alcohol intake: never Assessment & Plan Assessment & Plan narrative: # dementia with acute aggression, improved -social work consulted and attempting placement in memory care -continue Seroquel and Depakote Sprinkles -po haldol PRN for agitation, has helped thus far -continue donepezil -scored 2/30 on SLUMS with OT # h/o remote CVA -continue DAPT # HTN -continue coreg and losartan # HLD -continue statin # depression -continue sertraline Code status is presumed full code. DVT prophylaxis with nothing, patient is ambulatory Proxy is son Alexis. Dispo: Will need memory care placement. Could take weeks. Quality VTE Deep Vein Thrombosis/Pulmonary Embolism Present on Admission: No
[2023-12-03 16:24] VITALS: BP 152/76; PULSE 71; RESP 16; TEMP 36.3; O2SAT 97
[2023-12-04 08:19] VITALS: BP 156/82; PULSE 75; RESP 16; TEMP 36.2; O2SAT 97
[2023-12-04] MEDS: ASPIRIN EC 81 MG TABLET PO (08:44)
[2023-12-04] MEDS: DIVALPROEX 125 MG CAP PO ×3 (08:44→20:41)
[2023-12-04] MEDS: LOSARTAN 25 MG TABLET PO ×2 (08:44→20:41)
[2023-12-04] MEDS: SERTRALINE 50 MG TABLET PO (08:44)
[2023-12-04] MEDS: carvediloL 12.5 MG TABLET PO ×2 (08:45→20:41)
[2023-12-04] MEDS: CLOPIDOGREL 75 MG TABLET PO (08:45)
[2023-12-04] MEDS: QUETIAPINE 25 MG TABLET PO ×3 (08:45→18:30)
--- NOTE | 2023-12-04 12:11 | CM.DPC ---
DCP Cont. Reviewed EMR and team rounds for status updates. Received call from Bridget Garza, the [facility] assigned mattress spring encaser from [facility] ([facility]). This JIG OPERATOR provided the clinical updates for her and clarified the information that we have on family hx. She requested a copy of the DPOA-HC, which this JIG OPERATOR did email her. She will notify us withing the next few days the date for the bedside functional assessment, which she knows we have requested that it be expedited. Per Bridget, the information that we received from her colleague that was first assigned (Stephanie Bergman) was not accurate. Stephanie had told our JIG OPERATOR, Coco, that guardianship will still be needed because pt is still able to verbalize needs (even with dementia dx). Healthcare POA will only be accepted if patient is nonverbal was incorrect, and that if pt can verbally designate her DPOA-HC as the decision maker for memory care placement, and NO GUARDIANSHIP is needed in this situation. JIG OPERATOR requested that she email [email or web address] so that our team can all follow as needed. Bridget Garza contact info: [phone], email: [email or web address]
--- NOTE | 2023-12-04 12:27 | P.PN_ITS ---
Subjective Subjective Interval history: No issues noted overnight. Sleeping this morning, did not arouse. Exam Vital Signs (past 8 hours): - 12/04/23 08:19 Temperature 97.2 F L Pulse Rate 75 Respiratory Rate 16 Blood Pressure 156/82 H Pulse Oximetry 97 Oxygen Flow Rate 0 Oxygen Delivery Method Room Air Oxygen Flow Rate 0 Narrative Exam Narrative: GEN: Sleeping, no acute distress CV: regular rate and rhythm ABD: soft, nondistended EXT: no edema Objective Labs 11/29/23 07:10 11/29/23 07:10 [facility] Medical History Dementia Infarction of left basal ganglia Essential hypertension Hypertensive urgency Anxiety Migraines Measles Chicken pox Vertigo Recurrent sinusitis Surgical History Status post breast biopsy History of tonsillectomy Family History Mother Memory impairment Father of unknown cause Social History household members: spouse and children Smoking Status: Never smoker alcohol intake: never Assessment & Plan Assessment & Plan narrative: # dementia with acute aggression, improved -social work consulted and attempting placement in memory care -continue Seroquel and Depakote Sprinkles -po haldol PRN for agitation, has helped thus far -continue donepezil -scored 2/30 on SLUMS with OT # h/o remote CVA -continue DAPT # HTN -continue coreg and losartan # HLD -continue statin # depression -continue sertraline Code status is presumed full code. DVT prophylaxis with nothing, patient is ambulatory Proxy is son Alexis. Dispo: Will need memory care placement. Likely will take a while. Quality VTE Deep Vein Thrombosis/Pulmonary Embolism Present on Admission: No
--- NOTE | 2023-12-04 13:51 | PC.NURSE ---
pt ambulating acevedo, easily agitated and redirected , to room pt is calm and in bed asleep. Juan Diego Del Castillo from [facility]PS here to check on pt. and will return at another tiime.
[2023-12-04] MEDS: DONEPEZIL 5 MG TABLET 10 MG PO (20:40)
[2023-12-04 20:41] VITALS: BP 156/82; PULSE 75
[2023-12-04] MEDS: QUETIAPINE 25 MG TABLET 50 MG PO (20:41)
[2023-12-04] MEDS: ATORVASTATIN 20 MG TABLET 40 MG PO (20:41)
[2023-12-04] MEDS: TRAZODONE 50 MG TABLET PO (20:42)
[2023-12-05 08:00] VITALS: BP 145/78; PULSE 60; RESP 12; TEMP 36.8; O2SAT 96
--- NOTE | 2023-12-05 08:30 | DIET.CONS2 ---
Dietary Inpatient Consultation Note Admission Date: 12/01/2023 14:03 Nutrition f/u. Chart reviewed. Recent recorded PO intakes 75-100%. ONS being provided. Meal composition checked for adequacy via DFM. Will continue to monitor po intakes and weight. Diet: 12/01/23 Lunch General (Regular) Diet Diet Modifications: Food Texture: Level 7 - Regular Liquid Consistency: Level 0 - Thin Nutrition Percent Meal Consumed 100% 12/04/23 18:07 Percent Meal Consumed 100% 12/04/23 12:00 Percent Meal Consumed 100% 12/04/23 08:38 Percent Meal Consumed 75% 12/03/23 12:28 Percent Meal Consumed 75% 12/03/23 08:55 Electronically Signed by: Marianna Reynolds 12/05/23 08:30 Clinical Dietitian [address] [address]
[2023-12-05 08:59] VITALS: BP 145/78; PULSE 60
[2023-12-05] MEDS: DIVALPROEX 125 MG CAP PO ×3 (08:59→21:15)
[2023-12-05] MEDS: carvediloL 12.5 MG TABLET PO ×2 (08:59→21:14)
[2023-12-05 09:00] VITALS: BP 145/78; PULSE 60
[2023-12-05] MEDS: ASPIRIN EC 81 MG TABLET PO (09:00)
[2023-12-05] MEDS: LOSARTAN 25 MG TABLET PO ×2 (09:00→21:15)
[2023-12-05] MEDS: CLOPIDOGREL 75 MG TABLET PO (09:00)
[2023-12-05] MEDS: SERTRALINE 50 MG TABLET PO (09:00)
[2023-12-05] MEDS: QUETIAPINE 25 MG TABLET PO ×3 (09:01→17:47)
--- NOTE | 2023-12-05 10:50 | CM.DPNOTE ---
DCP Cont Placement Spoke with [facility] contact Bridget Garza contact info: [phone], email: [email or web address] this morning. Bridget has patient's bedside assessment on the schedule for FridayDecember 18 at 1000. The morning of this assessment, Bridget requests the following clinical for the last 7 days be emailed to her at [email or web address]: MARY LOU goldsmith notes RN notes PT/OT/DRILLING ASSISTANT notes if any H+P Face sheet Spoke with patient's spouse who was in the room this morning, updated. FOILING MACHINE ADJUSTER reports patient had a good night last evening, easily redirectable, calm and cooperative with care. Plan: Patient with advanced dementia with behavioral disturbance at home, does not have a safe home environment to return to at this time. CM team working on intermediate designer care placement for this patient; Medicaid LTC. YOKO
--- NOTE | 2023-12-05 14:53 | PM.PN.1 ---
Subjective Subjective Interval history: No issues noted overnight. Sleeping this morning, did not arouse. Exam Vital Signs (past 8 hours): - 12/05/23 08:00 12/05/23 08:59 12/05/23 09:00 Temperature 98.2 F Pulse Rate 60 60 60 Respiratory Rate 12 Blood Pressure 145/78 H 145/78 H 145/78 H Pulse Oximetry 96 Oxygen Flow Rate 0 Oxygen Delivery Method Room Air Oxygen Flow Rate 0 Narrative Exam Narrative: GEN: Sleeping, no acute distress CV: regular rate and rhythm ABD: soft, nondistended EXT: no edema Objective Labs 11/29/23 07:10 11/29/23 07:10 [facility] Medical History Dementia Infarction of left basal ganglia Essential hypertension Hypertensive urgency Anxiety Migraines Measles Chicken pox Vertigo Recurrent sinusitis Surgical History Status post breast biopsy History of tonsillectomy Family History Mother Memory impairment Father of unknown cause Social History household members: spouse and children Smoking Status: Never smoker alcohol intake: never Assessment & Plan Assessment & Plan narrative: # dementia with acute aggression, improved -social work consulted and attempting placement in memory care -continue Seroquel and Depakote Sprinkles -po haldol PRN for agitation, has helped thus far -continue donepezil -scored 2/30 on SLUMS with OT # h/o remote CVA -continue DAPT # HTN -continue coreg and losartan # HLD -continue statin # depression -continue sertraline Code status is presumed full code. DVT prophylaxis with nothing, patient is ambulatory Proxy is son Alexis. Dispo: Will need memory care placement. Likely will take a while. Quality VTE Deep Vein Thrombosis/Pulmonary Embolism Present on Admission: No
--- NOTE | 2023-12-05 17:46 | PC.NURSE ---
Amb in halls steady on feet.
[2023-12-05 21:14] VITALS: BP 145/78; PULSE 60
[2023-12-05] MEDS: ATORVASTATIN 20 MG TABLET 40 MG PO (21:14)
[2023-12-05 21:15] VITALS: BP 145/78; PULSE 60
[2023-12-05] MEDS: TRAZODONE 50 MG TABLET PO (21:15)
[2023-12-05] MEDS: QUETIAPINE 25 MG TABLET 50 MG PO (21:15)
[2023-12-05] MEDS: DONEPEZIL 5 MG TABLET 10 MG PO (21:15)
--- NOTE | 2023-12-05 21:23 | PC.NURSE ---
casino shift manager patient refused multiple attempts to do physical assessment. Pt did take 2100 PO meds with lots of encouragement, Pt layed down in bed with / DIRECTOR SUPPLIER QUALITY supervision.
[2023-12-06 08:07] VITALS: BP 153/77; PULSE 62; RESP 16; TEMP 36.9; O2SAT 98
--- NOTE | 2023-12-06 09:36 | PC.NURSE ---
Patient ambulated up and down hallway to the ICU area and back to her room. got her back in bed with warm blanket and ice water filled.
[2023-12-06] MEDS: DIVALPROEX 125 MG CAP PO ×3 (09:55→21:04)
[2023-12-06] MEDS: SERTRALINE 50 MG TABLET PO (09:55)
[2023-12-06] MEDS: LOSARTAN 25 MG TABLET PO ×2 (09:55→21:04)
[2023-12-06] MEDS: CLOPIDOGREL 75 MG TABLET PO (09:55)
[2023-12-06] MEDS: ASPIRIN EC 81 MG TABLET PO (09:55)
[2023-12-06] MEDS: carvediloL 12.5 MG TABLET PO ×2 (09:55→21:03)
[2023-12-06] MEDS: QUETIAPINE 25 MG TABLET PO ×3 (09:58→18:22)
--- NOTE | 2023-12-06 14:02 | P.PN_ITS ---
Subjective Subjective Date Patient Seen: 12/06/23 Time Patient Seen: 07:30 Interval history: The patient is considerably calmer this morning. She is no longer demonstrating aggressive behaviors. She appears calmer and states no complaints this morning. Exam Vital Signs (past 8 hours): - 12/06/23 08:07 Temperature 98.5 F Pulse Rate 62 Respiratory Rate 16 Blood Pressure 153/77 H Pulse Oximetry 98 Oxygen Delivery Method Room Air Oxygen Flow Rate 0 Narrative Exam Narrative: GENERAL: This is a well-nourished, well-developed patient, in no apparent distress. HEAD: Atraumatic. Normocephalic. No temporal or scalp tenderness. EYES: Pupils equal round and reactive. Extraocular motions intact. No scleral icterus. No injection or drainage. ENT: Mucous membranes pink and moist. NECK: Trachea midline. No JVD, bruits or lymphadenopathy. Supple, nontender, no meningeal signs. CARDIOVASCULAR: Regular rate and rhythm without murmurs, gallops, or rubs. RESPIRATORY: Clear to auscultation. GASTROINTESTINAL: Abdomen soft, non-tender, nondistended. EXTREMITIES: No clubbing, cyanosis, or edema. NEUROLOGIC: Alert, oriented to person but unable to state date date or year, speech fluent, full upper and lower motor strength, no focal deficits evident. DERMATOLOGIC: No rashes or skin lesions. Objective Labs 11/29/23 07:10 11/29/23 07:10 [facility] Medical History Dementia Infarction of left basal ganglia Essential hypertension Hypertensive urgency Anxiety Migraines Measles Chicken pox Vertigo Recurrent sinusitis Surgical History Status post breast biopsy History of tonsillectomy Family History Mother Memory impairment Father of unknown cause Social History household members: spouse and children Smoking Status: Never smoker alcohol intake: never Assessment & Plan Assessment & Plan narrative: # dementia with acute aggression, improved -social work consulted and attempting placement in memory care -continue quetiapine 25 mg t.i.d. plus 50 mg at bedtime and Depakote Sprinkles 125 mg t.i.d. -po haldol PRN for agitation, has helped thus far but not needed in the last 24 hours -continue donepezil -scored on SLUMS with OT # h/o remote CVA -continue DAPT # HTN -continue coreg and losartan # HLD -continue statin # depression -continue sertraline Code status is presumed full code. DVT prophylaxis with nothing, patient is ambulatory Proxy is son Alexis. Dispo: Will need memory care placement. Likely will take a while. Case is reviewed in team rounds with nursing, case management and therapy. Quality VTE Deep Vein Thrombosis/Pulmonary Embolism Present on Admission: No [facility] PROFEE Charge codes Subsequent inpatient/observation care: 34472
[2023-12-06] MEDS: ACETAMINOPHEN 325 MG TABLET 650 MG PO (15:24)
--- NOTE | 2023-12-06 18:09 | PC.NURSE ---
Patient was up in hallways upset and got aggitated with staff. This staff member kept a safe distance as patient was walking hallway. Patient was easily redirected to her room and offered her a warm blanket. Patient seems to be ok for now but did advise nurse that patient was getting agitated.
[2023-12-06 21:03] VITALS: BP 147/72; PULSE 60
[2023-12-06] MEDS: ATORVASTATIN 20 MG TABLET 40 MG PO (21:03)
[2023-12-06 21:04] VITALS: BP 147/72; PULSE 60
[2023-12-06] MEDS: TRAZODONE 50 MG TABLET PO (21:04)
[2023-12-06] MEDS: QUETIAPINE 25 MG TABLET 50 MG PO (21:04)
[2023-12-06] MEDS: DONEPEZIL 5 MG TABLET 10 MG PO (21:04)
[2023-12-06 21:05] VITALS: BP 144/87; PULSE 75; RESP 16; TEMP 36.2; O2SAT 97
--- NOTE | 2023-12-07 00:57 | PC.NURSE ---
Patient is alert but only able to tell this RN her name and that she is not at home. Breath sounds CTA with RA sat of 93%. HRR w/BP of 147/72. Denied nausea. Is voiding without dysuria. Independent with mobility but needs 1:1 sitter for safety as when admitted exhibited aggressive behavior and was considered a flight risk. Denied pain. Fall risk is high at RN discretion and bed alarm is activated. Has been cooperative this shift.
[2023-12-07] MEDS: LOSARTAN 25 MG TABLET PO ×2 (08:39→20:38)
[2023-12-07] MEDS: ASPIRIN EC 81 MG TABLET PO (08:39)
[2023-12-07] MEDS: SERTRALINE 50 MG TABLET PO (08:39)
[2023-12-07] MEDS: DIVALPROEX 125 MG CAP PO ×3 (08:39→20:36)
[2023-12-07] MEDS: carvediloL 12.5 MG TABLET PO ×2 (08:39→20:36)
[2023-12-07] MEDS: CLOPIDOGREL 75 MG TABLET PO (08:39)
[2023-12-07] MEDS: QUETIAPINE 25 MG TABLET PO ×3 (08:44→17:51)
--- NOTE | 2023-12-07 11:28 | P.PN_ITS ---
Subjective Subjective Date Patient Seen: 12/07/23 Time Patient Seen: 09:20 Interval history: The patient has been, over the last 24 hours, with no evident aggressive behaviors. She is able to get up and walk with staff without apparent limitation or unsteadiness. She states she is comfortable this morning without complaints. Exam Vital Signs (past 8 hours): Oxygen Delivery Method Room Air Oxygen Flow Rate 0 Narrative Exam Narrative: GENERAL: This is a well-nourished, well-developed patient, in no apparent distress. EYES: Pupils equal round and reactive. Extraocular motions intact. No scleral icterus. No injection or drainage. ENT: Mucous membranes pink and moist. NECK: Supple, nontender, no meningeal signs. CARDIOVASCULAR: Regular rate and rhythm without murmurs, gallops, or rubs. RESPIRATORY: Clear to auscultation. GASTROINTESTINAL: Abdomen soft, non-tender, nondistended. EXTREMITIES: No clubbing, cyanosis, or edema. NEUROLOGIC: Alert, oriented to person but unable to state where she is, date date or year, speech fluent, full upper and lower motor strength, no focal deficits evident. DERMATOLOGIC: No rashes or skin lesions. Objective Labs 11/29/23 07:10 11/29/23 07:10 [facility] Medical History Dementia Infarction of left basal ganglia Essential hypertension Hypertensive urgency Anxiety Migraines Measles Chicken pox Vertigo Recurrent sinusitis Surgical History Status post breast biopsy History of tonsillectomy Family History Mother Memory impairment Father of unknown cause Social History household members: spouse and children Smoking Status: Never smoker alcohol intake: never Assessment & Plan Assessment & Plan narrative: # dementia with acute aggression, improved -social work consulted and attempting placement in memory care. Case conference reviewed with planned state assessment on December 18. She cannot return home per report as her reportedly has dementia himself and is unable to meet her care needs. -continue quetiapine 25 mg t.i.d. plus 50 mg at bedtime and Depakote Sprinkles 125 mg t.i.d. -po haldol PRN for agitation, has helped thus far but not needed in the last 24 hours -continue donepezil -scored on SLUMS with OT # h/o remote CVA -continue DAPT # HTN -continue coreg and losartan # HLD -continue statin # depression -continue sertraline Code status is presumed full code. DVT prophylaxis with nothing, patient is ambulatory Proxy is son Alexis. Dispo: Will need memory care placement. Likely will take a while. Case is reviewed in team rounds with nursing, case management and therapy again today. Quality VTE Deep Vein Thrombosis/Pulmonary Embolism Present on Admission: No [facility] PROFEE Charge codes Subsequent inpatient/observation care: 36028
[2023-12-07 13:14] VITALS: BP 115/54; PULSE 68; RESP 14; TEMP 37.1; O2SAT 97
[2023-12-07] MEDS: ACETAMINOPHEN 325 MG TABLET 650 MG PO ×2 (13:28→22:40)
--- NOTE | 2023-12-07 18:09 | PC.NURSE ---
Pt has been calm all day w/ 1:1 sitter. Assisted to the BR Ambulated in hallway Taking med w/o incidences, Condition remains esentially unchanged. Remains w/ 1:1 sitter for safety. Continue w/plan of care.
[2023-12-07] MEDS: DONEPEZIL 5 MG TABLET 10 MG PO (20:35)
[2023-12-07 20:36] VITALS: BP 159/80; PULSE 71
[2023-12-07] MEDS: QUETIAPINE 25 MG TABLET 50 MG PO (20:36)
[2023-12-07] MEDS: ATORVASTATIN 20 MG TABLET 40 MG PO (20:36)
[2023-12-07] MEDS: TRAZODONE 50 MG TABLET PO (20:36)
[2023-12-07 20:38] VITALS: BP 159/80; PULSE 71; RESP 17; TEMP 36.3; O2SAT 96
[2023-12-08 09:31] VITALS: BP 109/55; PULSE 69; RESP 16; TEMP 36.4; O2SAT 97
[2023-12-08] MEDS: ASPIRIN EC 81 MG TABLET PO (09:48)
[2023-12-08] MEDS: SERTRALINE 50 MG TABLET PO (09:48)
[2023-12-08] MEDS: CLOPIDOGREL 75 MG TABLET PO (09:48)
[2023-12-08] MEDS: carvediloL 12.5 MG TABLET PO ×2 (09:48→20:31)
[2023-12-08] MEDS: DIVALPROEX 125 MG CAP PO ×3 (09:48→20:32)
[2023-12-08] MEDS: QUETIAPINE 25 MG TABLET PO ×3 (09:50→18:15)
--- NOTE | 2023-12-08 11:45 | PC.NURSE ---
Addendum entered by Sally Melo R.N. 12/08/23 18:51: Please ignore bottom note regarding patients discharge. This was another patient. Note is 12/08/23 at 1449 Addendum entered by Sally Melo R.N. 12/08/23 14:49: Paperwork gone over and patient discharged to sisters home. IV taken out and a copy of discharge paper work and signed sheet given to patient. Addendum entered by Sally Melo R.N. 12/08/23 13:43: Losartan held as patients diastolyic 51, she has been running low today. Other blood pressure medication given. Patient is sleeping now. Original Note: Patient is confused, and does not really understand that she is in the hospital. She took her medication crushed in pudding and tolerated this well. She has a 1:1 patient tech in the room , otherwise she is know to take off and she can be fast. She has not been agitated or combative thus far. She voided x1 and is reclining in the chair.
--- NOTE | 2023-12-08 11:53 | PM.PN.1 ---
Subjective Subjective Date Patient Seen: 12/07/23 Time Patient Seen: 09:20 Interval history: The patient has been, over the last 24 hours, with no evident aggressive behaviors. She is able to get up and walk with staff without apparent limitation or unsteadiness. She states she is comfortable this morning without complaints. Exam Vital Signs (past 8 hours): - 12/08/23 09:31 Temperature 97.5 F L Pulse Rate 69 Respiratory Rate 16 Blood Pressure 109/55 L Pulse Oximetry 97 Oxygen Flow Rate 0 Oxygen Delivery Method Room Air Oxygen Flow Rate 0 Narrative Exam Narrative: GENERAL: This is a well-nourished, well-developed patient, in no apparent distress. EYES: Pupils equal round and reactive. Extraocular motions intact. No scleral icterus. No injection or drainage. ENT: Mucous membranes pink and moist. NECK: Supple, nontender, no meningeal signs. CARDIOVASCULAR: Regular rate and rhythm without murmurs, gallops, or rubs. RESPIRATORY: Clear to auscultation. GASTROINTESTINAL: Abdomen soft, non-tender, nondistended. EXTREMITIES: No clubbing, cyanosis, or edema. NEUROLOGIC: Alert, oriented to person but unable to state where she is, date date or year, speech fluent, full upper and lower motor strength, no focal deficits evident. DERMATOLOGIC: No rashes or skin lesions. Objective Labs 11/29/23 07:10 11/29/23 07:10 [facility] Medical History Dementia Infarction of left basal ganglia Essential hypertension Hypertensive urgency Anxiety Migraines Measles Chicken pox Vertigo Recurrent sinusitis Surgical History Status post breast biopsy History of tonsillectomy Family History Mother Memory impairment Father of unknown cause Social History household members: spouse and children Smoking Status: Never smoker alcohol intake: never Assessment & Plan Assessment & Plan narrative: # dementia with acute aggression, improved -social work consulted and attempting placement in memory care. Case conference reviewed with planned state assessment on December 18. She cannot return home per report as her reportedly has dementia himself and is unable to meet her care needs. -continue quetiapine 25 mg t.i.d. plus 50 mg at bedtime and Depakote Sprinkles 125 mg t.i.d. -po haldol PRN for agitation, has helped thus far but not needed in the last 24 hours -continue donepezil -scored on SLUMS with OT # h/o remote CVA -continue DAPT # HTN -continue coreg and losartan # HLD -continue statin # depression -continue sertraline Code status is presumed full code. DVT prophylaxis with nothing, patient is ambulatory Proxy is sandra Espinoza. Dispo: Will need memory care placement. Likely will take a while. Case is reviewed in team rounds with nursing, case management and therapy again today. Quality VTE Deep Vein Thrombosis/Pulmonary Embolism Present on Admission: No
[2023-12-08 13:21] VITALS: BP 127/51; PULSE 66; O2SAT 96
[2023-12-08 19:17] VITALS: BP 135/62; PULSE 78; RESP 14; TEMP 36.5; O2SAT 97
[2023-12-08] MEDS: TRAZODONE 50 MG TABLET PO (20:31)
[2023-12-08] MEDS: QUETIAPINE 25 MG TABLET 50 MG PO (20:31)
[2023-12-08] MEDS: DONEPEZIL 5 MG TABLET 10 MG PO (20:31)
[2023-12-08] MEDS: LOSARTAN 25 MG TABLET PO (20:31)
[2023-12-08] MEDS: ATORVASTATIN 20 MG TABLET 40 MG PO (20:31)
[2023-12-09 09:23] VITALS: BP 126/61; PULSE 63; RESP 16; TEMP 35.9; O2SAT 98
[2023-12-09] MEDS: ASPIRIN EC 81 MG TABLET PO (09:49)
[2023-12-09] MEDS: CLOPIDOGREL 75 MG TABLET PO (09:49)
[2023-12-09] MEDS: carvediloL 12.5 MG TABLET PO ×2 (09:49→20:30)
[2023-12-09] MEDS: SERTRALINE 50 MG TABLET PO (09:50)
[2023-12-09] MEDS: DIVALPROEX 125 MG CAP PO ×3 (09:50→20:31)
[2023-12-09] MEDS: LOSARTAN 25 MG TABLET PO ×2 (09:50→20:31)
[2023-12-09] MEDS: QUETIAPINE 25 MG TABLET PO ×3 (09:51→18:08)
[2023-12-09] MEDS: ACETAMINOPHEN 325 MG TABLET 650 MG PO (12:08)
--- NOTE | 2023-12-09 12:48 | PC.NURSE ---
Addendum entered by Sally Melo R.N. 12/09/23 13:27: Patient visiting with her , they ambulated in the halls and patient is resting now. Original Note: Patient is back to bed for a rest after sitting up in her chair for breakfast and lunch. Given tylenol for discomfort/headache. She has a patient janitor caretaker with her at all times and patient has been appropriate. She seems to sundown in the evening and then gets more agitated. Resting now.
--- NOTE | 2023-12-09 13:04 | PM.PN.1 ---
Subjective Subjective Date Patient Seen: 12/09/23 Time Patient Seen: 09:20 Interval history: The patient has been, over the last 24 hours, with no evident aggressive behaviors. She is able to get up and walk with staff without apparent limitation or unsteadiness. She states she is comfortable this morning without complaints. Exam Vital Signs (past 8 hours): - 12/09/23 09:23 Temperature 96.6 F L Pulse Rate 63 Respiratory Rate 16 Blood Pressure 126/61 Pulse Oximetry 98 Oxygen Flow Rate 0 Oxygen Delivery Method Room Air Oxygen Flow Rate 0 Narrative Exam Narrative: GENERAL: This is a well-nourished, well-developed patient, in no apparent distress. EYES: Pupils equal round and reactive. Extraocular motions intact. No scleral icterus. No injection or drainage. ENT: Mucous membranes pink and moist. NECK: Supple, nontender, no meningeal signs. CARDIOVASCULAR: Regular rate and rhythm without murmurs, gallops, or rubs. RESPIRATORY: Clear to auscultation. GASTROINTESTINAL: Abdomen soft, non-tender, nondistended. EXTREMITIES: No clubbing, cyanosis, or edema. NEUROLOGIC: Alert, oriented to person but unable to state where she is, date date or year, speech fluent, full upper and lower motor strength, no focal deficits evident. DERMATOLOGIC: No rashes or skin lesions. Objective Labs 11/29/23 07:10 11/29/23 07:10 [facility] Medical History Dementia Infarction of left basal ganglia Essential hypertension Hypertensive urgency Anxiety Migraines Measles Chicken pox Vertigo Recurrent sinusitis Surgical History Status post breast biopsy History of tonsillectomy Family History Mother Memory impairment Father of unknown cause Social History household members: spouse and children Smoking Status: Never smoker alcohol intake: never Assessment & Plan Assessment & Plan narrative: # dementia with acute aggression, improved -social work consulted and attempting placement in memory care. Case conference reviewed with planned state assessment on December 18. She cannot return home per report as her reportedly has dementia himself and is unable to meet her care needs. -continue quetiapine 25 mg t.i.d. plus 50 mg at bedtime and Depakote Sprinkles 125 mg t.i.d. -po haldol PRN for agitation, has helped thus far but not needed in the last 24 hours -continue donepezil -scored on SLUMS with OT # h/o remote CVA -continue DAPT # HTN -continue coreg and losartan # HLD -continue statin # depression -continue sertraline Code status is presumed full code. DVT prophylaxis with nothing, patient is ambulatory Proxy is sandra Espnioza. Dispo: Will need memory care placement. Likely will take a while. Case is reviewed in team rounds with nursing, case management and therapy again today. Quality VTE Deep Vein Thrombosis/Pulmonary Embolism Present on Admission: No
--- NOTE | 2023-12-09 14:05 | CM.DPC ---
DCP Cont. Reviewed EMR and team rounds for status updates. Plan continues to be for [facility] window caser to do a bedside functional assessment on 12/18, followed by determining the daily rate, placement disposition, which can take an additional few days to finalize. Will monitor closely.
[2023-12-09 20:30] VITALS: BP 171/63; PULSE 101
[2023-12-09] MEDS: ATORVASTATIN 20 MG TABLET 40 MG PO (20:30)
[2023-12-09 20:31] VITALS: BP 171/63; PULSE 101; RESP 18; TEMP 37.1; O2SAT 94
[2023-12-09] MEDS: DONEPEZIL 5 MG TABLET 10 MG PO (20:31)
[2023-12-09] MEDS: TRAZODONE 50 MG TABLET PO (20:32)
[2023-12-09] MEDS: QUETIAPINE 25 MG TABLET 50 MG PO (20:32)
--- NOTE | 2023-12-10 00:13 | PC.NURSE ---
Patient is oriented only to self and birthdate. Becomes anxious when asked most orientation questions. Breath sounds CTA with RA sat of 94%. HRR but tachy at 101 bpm and BP elevated at 171/63 but expressing begin afraid with 1:1 sitter so PCT assigned as sitter changed. Denied nausea. BT present and abdomen is soft. Voiding without dysuria. Is able to move self but provided SBA for safety. Denied pain. 1:1 observation for safety.Fall risk score is high and bed alarm is activated.
[2023-12-10] MEDS: ASPIRIN EC 81 MG TABLET PO (10:10)
[2023-12-10] MEDS: carvediloL 12.5 MG TABLET PO ×2 (10:10→21:24)
[2023-12-10] MEDS: DIVALPROEX 125 MG CAP PO ×3 (10:10→21:25)
[2023-12-10] MEDS: SERTRALINE 50 MG TABLET PO (10:10)
[2023-12-10] MEDS: LOSARTAN 25 MG TABLET PO ×2 (10:11→21:25)
[2023-12-10] MEDS: CLOPIDOGREL 75 MG TABLET PO (10:11)
[2023-12-10] MEDS: QUETIAPINE 25 MG TABLET PO ×3 (10:14→17:40)
--- NOTE | 2023-12-10 11:20 | CM.DPC ---
DCP Cont. Reviewed EMR and team rounds for status updates. Bridget Garza from [facility] has and earlier opening to do the bedside functional assessment, and will be here on December 15, 10:00am to do this. Will continue to monitor.
[2023-12-10] MEDS: ACETAMINOPHEN 325 MG TABLET 650 MG PO (14:54)
--- NOTE | 2023-12-10 15:16 | PM.PN.1 ---
Subjective Subjective Date Patient Seen: 12/10/23 Time Patient Seen: 09:20 Interval history: The patient has been with no evident aggressive behaviors. She is able to get up and walk with staff without apparent limitation or unsteadiness. She states she is comfortable this morning without complaints. Exam Vital Signs (past 8 hours): Oxygen Delivery Method Room Air Oxygen Flow Rate 0 Narrative Exam Narrative: GENERAL: This is a well-nourished, well-developed patient, in no apparent distress. EYES: Pupils equal round and reactive. Extraocular motions intact. No scleral icterus. No injection or drainage. ENT: Mucous membranes pink and moist. NECK: Supple, nontender, no meningeal signs. CARDIOVASCULAR: Regular rate and rhythm without murmurs, gallops, or rubs. RESPIRATORY: Clear to auscultation. GASTROINTESTINAL: Abdomen soft, non-tender, nondistended. EXTREMITIES: No clubbing, cyanosis, or edema. NEUROLOGIC: Alert, oriented to person but unable to state where she is, date date or year, speech fluent, full upper and lower motor strength, no focal deficits evident. DERMATOLOGIC: No rashes or skin lesions. Objective Labs 11/29/23 07:10 11/29/23 07:10 [facility] Medical History Dementia Infarction of left basal ganglia Essential hypertension Hypertensive urgency Anxiety Migraines Measles Chicken pox Vertigo Recurrent sinusitis Surgical History Status post breast biopsy History of tonsillectomy Family History Mother Memory impairment Father of unknown cause Social History household members: spouse and children Smoking Status: Never smoker alcohol intake: never Assessment & Plan Assessment & Plan narrative: # dementia with acute aggression, improved -social work consulted and attempting placement in memory care. Case conference reviewed with planned state assessment on December 18. She cannot return home per report as her reportedly has dementia himself and is unable to meet her care needs. -continue quetiapine 25 mg t.i.d. plus 50 mg at bedtime and Depakote Sprinkles 125 mg t.i.d. -po haldol PRN for agitation, has helped thus far but not needed in the last 24 hours -continue donepezil -scored on SLUMS with OT # h/o remote CVA -continue DAPT # HTN -continue coreg and losartan # HLD -continue statin # depression -continue sertraline Code status is presumed full code. DVT prophylaxis with nothing, patient is ambulatory Proxy is son Alexis. Dispo: Will need memory care placement. Likely will take a while. Case is reviewed in team rounds with nursing, case management and therapy again today. Quality VTE Deep Vein Thrombosis/Pulmonary Embolism Present on Admission: No
[2023-12-10 18:03] VITALS: BP 158/85; PULSE 68; RESP 14; TEMP 36.7; O2SAT 97
--- NOTE | 2023-12-10 20:50 | PC.NURSE ---
1999... left,patient in bed calm and quiet.
--- NOTE | 2023-12-10 20:52 | PC.NURSE ---
2019.. Patient get up in bed and use the BR. Ambulate in the hallway around [facility] sta. x2 and back in bed.
[2023-12-10 21:24] VITALS: BP 153/66; PULSE 69
[2023-12-10] MEDS: ATORVASTATIN 20 MG TABLET 40 MG PO (21:24)
[2023-12-10 21:25] VITALS: BP 153/66; PULSE 69
[2023-12-10] MEDS: QUETIAPINE 25 MG TABLET 50 MG PO (21:25)
[2023-12-10] MEDS: TRAZODONE 50 MG TABLET PO (21:25)
[2023-12-10] MEDS: DONEPEZIL 5 MG TABLET 10 MG PO (21:25)
[2023-12-10 21:33] VITALS: BP 153/66; PULSE 69
--- NOTE | 2023-12-10 21:37 | PC.NURSE ---
2009... Patient up in bed , stated that she's scared.Went for another walked around [facility] and back to her room.Used the BR , tye care done and ointment applied. Notified RN about a little bit pinkish on her bottom and being scared.Patient back in bed ,calm and quiet at this time.
--- NOTE | 2023-12-11 00:36 | PC.NURSE ---
Patient only able to state name and birthdate. Does express that she is afraid but offers no indication as to why. Begins to become frustrated when asking other orientation questions. Does respond appropriately to conversation and follows direction. Has shown no signs of aggressive behavior thus far tonight. Was walking in [place] with SBA/observation of 1:1 sitter. Breath sounds are CTA. HRR w/BP of 153/66. Denied nausea. BT present and abdomen is soft. Is voiding on toilet and denies dysuria. Fall risk score is high and bed alarm is activated.
--- NOTE | 2023-12-11 07:33 | PM.PN.1 ---
Subjective Subjective Interval history: She denies any chest pain, dyspnea, or abdominal pain. She has no other concerns. Exam Vital Signs (past 8 hours): Oxygen Delivery Method Room Air Oxygen Flow Rate 0 Narrative Exam Narrative: NAD, alert and oriented. Fluent speech. Lungs are clear, normal rate and effort. Heart is regular, no murmur gallop or rub. Abdomen is soft, non distended. Extremities are free of edema. Objective Labs 11/29/23 07:10 11/29/23 07:10 [facility] LICENSE OF [facility] Medical History Dementia Infarction of left basal ganglia Essential hypertension Hypertensive urgency Anxiety Migraines Measles Chicken pox Vertigo Recurrent sinusitis Surgical History Status post breast biopsy History of tonsillectomy Family History Mother Memory impairment Father of unknown cause Social History household members: spouse and children Smoking Status: Never smoker alcohol intake: never Assessment & Plan Assessment & Plan narrative: 1. Dementia with acute aggression, improved -social work consulted and attempting placement in memory care. Case conference reviewed with planned state assessment on December 18. She cannot return home per report as her reportedly has dementia himself and is unable to meet her care needs. -continue quetiapine 25 mg t.i.d. plus 50 mg at bedtime and Depakote Sprinkles 125 mg t.i.d. -po haldol PRN for agitation, has helped thus far but not needed in the last 24 hours -continue donepezil -scored 2/30 on SLUMS with OT 2. Remote CVA -continue DAPT 3. HTN -continue coreg and losartan 4. HLD -continue statin 5. depression -continue sertraline PLAN: -discharge planning, meeting with state on December 15. Code status is presumed full code. DVT prophylaxis with nothing, patient is ambulatory Proxy is son Alexis. Quality VTE Deep Vein Thrombosis/Pulmonary Embolism Present on Admission: No
[2023-12-11] MEDS: QUETIAPINE 25 MG TABLET PO ×3 (09:13→17:08)
[2023-12-11] MEDS: ACETAMINOPHEN 325 MG TABLET 650 MG PO (09:13)
[2023-12-11] MEDS: LOSARTAN 25 MG TABLET PO ×2 (09:13→20:49)
[2023-12-11] MEDS: DIVALPROEX 125 MG CAP PO ×3 (09:13→20:50)
[2023-12-11] MEDS: SERTRALINE 50 MG TABLET PO (09:13)
[2023-12-11] MEDS: ASPIRIN EC 81 MG TABLET PO (09:13)
[2023-12-11] MEDS: carvediloL 12.5 MG TABLET PO ×2 (09:13→20:48)
[2023-12-11] MEDS: CLOPIDOGREL 75 MG TABLET PO (09:13)
[2023-12-11 18:39] VITALS: BP 148/82; PULSE 71; RESP 14; TEMP 36.5; O2SAT 97
[2023-12-11 20:48] VITALS: BP 148/82; PULSE 71
[2023-12-11] MEDS: TRAZODONE 50 MG TABLET PO (20:48)
[2023-12-11 20:49] VITALS: BP 148/82; PULSE 71
[2023-12-11] MEDS: DONEPEZIL 5 MG TABLET 10 MG PO (20:49)
[2023-12-11] MEDS: ATORVASTATIN 20 MG TABLET 40 MG PO (20:50)
[2023-12-11] MEDS: QUETIAPINE 25 MG TABLET 50 MG PO (20:50)
--- NOTE | 2023-12-12 07:15 | PM.PN.1 ---
Subjective Subjective Interval history: No new complaints, no overnight evemts. Exam Vital Signs (past 8 hours): Oxygen Delivery Method Room Air Oxygen Flow Rate 0 Narrative Exam Narrative: NAD, alert and oriented. Fluent speech. Lungs are clear, normal rate and effort. Heart is regular, no murmur gallop or rub. Abdomen is soft, non distended. Extremities are free of edema. Objective Labs 11/29/23 07:10 11/29/23 07:10 [facility] Medical History Dementia Infarction of left basal ganglia Essential hypertension Hypertensive urgency Anxiety Migraines Measles Chicken pox Vertigo Recurrent sinusitis Surgical History Status post breast biopsy History of tonsillectomy Family History Mother Memory impairment Father of unknown cause Social History household members: spouse and children Smoking Status: Never smoker alcohol intake: never Assessment & Plan Assessment & Plan narrative: 1. Dementia with acute aggression, present on admission and stable. -scored 2/30 on SLUMS with OT 2. Remote CVA, present on admission and stable. -continue DAPT 3. HTN, present on admission and stable. -continue coreg and losartan 4. HLD, present on admission and stable. -continue statin 5. depression, present on admission and stable. -continue sertraline PLAN: -discharge planning, meeting with state on December 15. Code status is presumed full code. DVT prophylaxis with nothing, patient is ambulatory Proxy is son Alexis. Quality VTE Deep Vein Thrombosis/Pulmonary Embolism Present on Admission: No
--- NOTE | 2023-12-12 08:00 | PC.NURSE ---
Patient just woke up, she is getting ready to have breakfast. She has been appropriate this morning. She has dementia at baseline. 1:1 patient tech is with patient now. She voices no complaints of discomfort.
[2023-12-12 09:00] VITALS: BP 148/77; PULSE 65; RESP 16; TEMP 36.1; O2SAT 99
[2023-12-12] MEDS: CLOPIDOGREL 75 MG TABLET PO (09:29)
[2023-12-12] MEDS: QUETIAPINE 25 MG TABLET PO ×3 (09:29→18:15)
[2023-12-12] MEDS: DIVALPROEX 125 MG CAP PO ×3 (09:29→21:59)
[2023-12-12] MEDS: SERTRALINE 50 MG TABLET PO (09:29)
[2023-12-12] MEDS: carvediloL 12.5 MG TABLET PO ×2 (09:29→22:01)
[2023-12-12] MEDS: LOSARTAN 25 MG TABLET PO ×2 (09:29→22:00)
[2023-12-12] MEDS: ASPIRIN EC 81 MG TABLET PO (09:29)
--- NOTE | 2023-12-12 10:09 | CM.DPC ---
DCP Continued Reviewed EMR and team rounds for pt?s medical status. Pt continues to need 1:1 sitter. No new discharge needs identified at this time. Plan: Awaiting [facility] telephonic nurse case manager to complete bedside functional assessment on 12/15 to determine daily rate and placement disposition. CM Team will continue to follow for coordination of discharge plans. OMARI Nieves
[2023-12-12] MEDS: ATORVASTATIN 20 MG TABLET 40 MG PO (21:59)
[2023-12-12] MEDS: QUETIAPINE 25 MG TABLET 50 MG PO (21:59)
[2023-12-12] MEDS: DONEPEZIL 5 MG TABLET 10 MG PO (21:59)
[2023-12-12] MEDS: TRAZODONE 50 MG TABLET PO (21:59)
[2023-12-12 22:00] VITALS: BP 162/86; PULSE 65
[2023-12-12 22:01] VITALS: BP 162/86; PULSE 65
--- NOTE | 2023-12-13 06:08 | PC.NURSE ---
Patient A & O x 1, restless last evening, slept well during the night. No aggressive behavior this shift. Sitter at bedside for safety.
--- NOTE | 2023-12-13 07:30 | PM.PN.1 ---
Subjective Subjective Interval history: No new concerns. She has been walking the halls this morning with supervision. Exam Vital Signs (past 8 hours): Oxygen Delivery Method Room Air Oxygen Flow Rate 0 Narrative Exam Narrative: NAD, alert and oriented to person. Fluent speech. Lungs are clear, normal rate and effort. Heart is regular, no murmur gallop or rub. Abdomen is soft, non distended. Extremities are free of edema. Objective Labs 11/29/23 07:10 11/29/23 07:10 [facility] Medical History Dementia Infarction of left basal ganglia Essential hypertension Hypertensive urgency Anxiety Migraines Measles Chicken pox Vertigo Recurrent sinusitis Surgical History Status post breast biopsy History of tonsillectomy Family History Mother Memory impairment Father of unknown cause Social History household members: spouse and children Smoking Status: Never smoker alcohol intake: never Assessment & Plan Assessment & Plan narrative: 1. Dementia with acute aggression, present on admission and stable. -scored 2/30 on SLUMS with OT 2. Remote CVA, present on admission and stable. -continue DAPT 3. HTN, present on admission and stable. -continue coreg and losartan 4. HLD, present on admission and stable. -continue statin 5. depression, present on admission and stable. -continue sertraline PLAN: -discharge planning, meeting with state on December 15. -we will recheck labs in the next 1-2 days, no other change to to her medications or medical planning. Code status is presumed full code. DVT prophylaxis with nothing, patient is ambulatory Proxy is son Alexis. Quality VTE Deep Vein Thrombosis/Pulmonary Embolism Present on Admission: No
[2023-12-13 08:00] VITALS: BP 173/84; PULSE 60; RESP 15; TEMP 36.2; O2SAT 96
[2023-12-13 08:06] VITALS: BP 173/84; PULSE 60
[2023-12-13] MEDS: CLOPIDOGREL 75 MG TABLET PO (08:06)
[2023-12-13] MEDS: carvediloL 12.5 MG TABLET PO ×2 (08:06→20:13)
[2023-12-13 08:07] VITALS: BP 173/84; PULSE 60
[2023-12-13] MEDS: SERTRALINE 50 MG TABLET PO (08:07)
[2023-12-13] MEDS: DIVALPROEX 125 MG CAP PO ×3 (08:07→20:14)
[2023-12-13] MEDS: ASPIRIN EC 81 MG TABLET PO (08:07)
[2023-12-13] MEDS: LOSARTAN 25 MG TABLET PO ×2 (08:07→20:13)
[2023-12-13] MEDS: QUETIAPINE 25 MG TABLET PO ×3 (08:09→18:10)
[2023-12-13 20:13] VITALS: BP 167/75; PULSE 72
[2023-12-13] MEDS: TRAZODONE 50 MG TABLET PO (20:14)
[2023-12-13] MEDS: DONEPEZIL 5 MG TABLET 10 MG PO (20:14)
[2023-12-13] MEDS: QUETIAPINE 25 MG TABLET 50 MG PO (20:14)
[2023-12-13] MEDS: ATORVASTATIN 20 MG TABLET 40 MG PO (20:14)
--- NOTE | 2023-12-14 07:30 | PM.PN.1 ---
Subjective Subjective Interval history: Lady with severe dementia, awaiting placement. S: No new complaints. She was somewhat anxious today and appears to be remembering some events from her life. Exam Vital Signs (past 8 hours): Oxygen Delivery Method Room Air Oxygen Flow Rate 0 Narrative Exam Narrative: NAD, alert. Fluent speech. Anxious today. Lungs are clear, normal rate and effort. Heart is regular, no murmur gallop or rub. Abdomen is soft, non distended. Extremities are free of edema. Objective Labs 11/29/23 07:10 11/29/23 07:10 [facility] Medical History Dementia Infarction of left basal ganglia Essential hypertension Hypertensive urgency Anxiety Migraines Measles Chicken pox Vertigo Recurrent sinusitis Surgical History Status post breast biopsy History of tonsillectomy Family History Mother Memory impairment Father of unknown cause Social History household members: spouse and children Smoking Status: Never smoker alcohol intake: never Assessment & Plan Assessment & Plan narrative: 1. Dementia with acute aggression, present on admission and stable. -scored 2/30 on SLUMS with OT 2. Remote CVA, present on admission and stable. -continue DAPT 3. HTN, present on admission and stable. -continue coreg and losartan 4. HLD, present on admission and stable. -continue statin 5. depression, present on admission and stable. -continue sertraline PLAN: -discharge planning, meeting with state on December 15. -we will recheck labs in the next 1-2 days, no other change to to her medications or medical planning. Code status is presumed full code. DVT prophylaxis with nothing, patient is ambulatory Proxy is son Alexis. Quality VTE Deep Vein Thrombosis/Pulmonary Embolism Present on Admission: No
[2023-12-14 09:14] VITALS: BP 162/78; PULSE 63; RESP 16; TEMP 36.1; O2SAT 95
[2023-12-14 09:17] VITALS: BP 162/78; PULSE 65
[2023-12-14] MEDS: DIVALPROEX 125 MG CAP PO ×3 (09:17→21:23)
[2023-12-14] MEDS: SERTRALINE 50 MG TABLET PO (09:17)
[2023-12-14] MEDS: LOSARTAN 25 MG TABLET PO ×2 (09:17→21:23)
[2023-12-14] MEDS: carvediloL 12.5 MG TABLET PO ×2 (09:17→21:23)
[2023-12-14] MEDS: ASPIRIN EC 81 MG TABLET PO (09:17)
[2023-12-14] MEDS: CLOPIDOGREL 75 MG TABLET PO (09:17)
[2023-12-14] MEDS: QUETIAPINE 25 MG TABLET PO ×3 (09:19→17:41)
--- NOTE | 2023-12-14 09:58 | PC.NURSE ---
ASIA Evangelista at bedside.
[2023-12-14] MEDS: LORazepam 0.5 MG TABLET PO (12:26)
--- NOTE | 2023-12-14 20:26 | PC.NURSE ---
12/13 Patient sitting up in bed watching TV. Went for a walk in the hallways and came back to room to use the BR and to brush teeth. Some cueing needed to help her to brush her teeth. Patient resting quietly in bed
[2023-12-14] MEDS: ATORVASTATIN 20 MG TABLET 40 MG PO (21:22)
[2023-12-14 21:23] VITALS: BP 157/84; PULSE 65
[2023-12-14] MEDS: QUETIAPINE 25 MG TABLET 50 MG PO (21:23)
[2023-12-14] MEDS: TRAZODONE 50 MG TABLET PO (21:23)
[2023-12-14] MEDS: DONEPEZIL 5 MG TABLET 10 MG PO (21:23)
[2023-12-14 21:30] VITALS: BP 157/84; PULSE 62; RESP 14; TEMP 36.1; O2SAT 97
--- NOTE | 2023-12-14 21:42 | PC.NURSE ---
Patient is alert but oriented only to self; very soft spoken. Breath sounds CTA with RA sat of 97%. HRR. BP elevated at 157/84; on Coreg + Losartan. Denies nausea. BT present and had BM on previous shift. Denies dysuria. Is independent with mobility but is being provided SBA for safety. Denies pain. Fall risk score is high and bed alarm is used; has 1:1 sitter for safety.
[2023-12-15 09:30] VITALS: BP 173/83; PULSE 66; RESP 10; TEMP 36.4; O2SAT 97
[2023-12-15] MEDS: ASPIRIN EC 81 MG TABLET PO (09:40)
[2023-12-15] MEDS: SERTRALINE 50 MG TABLET PO (09:40)
[2023-12-15] MEDS: QUETIAPINE 25 MG TABLET PO ×3 (09:40→18:30)
[2023-12-15] MEDS: LOSARTAN 25 MG TABLET PO ×2 (09:40→20:10)
[2023-12-15] MEDS: DIVALPROEX 125 MG CAP PO (09:40)
[2023-12-15] MEDS: CLOPIDOGREL 75 MG TABLET PO (09:40)
[2023-12-15] MEDS: carvediloL 12.5 MG TABLET PO ×2 (09:40→20:10)
[2023-12-15] MEDS: ACETAMINOPHEN 325 MG TABLET 650 MG PO (11:49)
--- NOTE | 2023-12-15 14:00 | CM.DPC ---
DCP HCS Assessment Planning Cont: secure emailed updated MD g notes, RN notes, med list, and OT note from the past 7 days to pt's assigned HCS worker Bridget to email [email or web address] and then called Bridget at [phone] and confirmed that she received. She will review to make sure no further information needed and she still has pt on her schedule for assessment for tomorrow 12/16/23 bedside at 1000. FRED Mora
--- NOTE | 2023-12-15 15:13 | DIET.CONS2 ---
Dietary Inpatient Consultation Note Admission Date: 12/01/2023 14:03 Nutrition f/u. Chart reviewed. Recent PO intakes between 50-75%. Confirmed with nursing staff that pt drank Ensure this morning. Will trial Ensure plus/enlive to help meet adequate energy needs. Will continue to monitor tolerance of ONS, po intakes, and weight. Diet: 12/01/23 Lunch General (Regular) Diet Diet Modifications: Food Texture: Level 7 - Regular Liquid Consistency: Level 0 - Thin Nutrition Percent Meal Consumed 50% 12/15/23 09:59 Percent Meal Consumed 50% 12/15/23 07:00 Percent Meal Consumed 50% 12/13/23 17:31 Electronically Signed by: Marianna Reynolds 12/15/23 15:13 Clinical Dietitian [address] [id number]
--- NOTE | 2023-12-15 15:34 | PM.PN.1 ---
Subjective Subjective Interval history: Lady with severe dementia, awaiting placement. S: No new complaints. Exam Vital Signs (past 8 hours): - 12/15/23 09:30 Temperature 97.6 F Pulse Rate 66 Respiratory Rate 10 L Blood Pressure 173/83 H Pulse Oximetry 97 Oxygen Flow Rate 0 Oxygen Delivery Method Room Air Oxygen Flow Rate 0 Narrative Exam Narrative: NAD, alert. Fluent speech. Ambulating the halls with minimal assistance. Objective Labs 11/29/23 07:10 11/29/23 07:10 [facility] Medical History Dementia Infarction of left basal ganglia Essential hypertension Hypertensive urgency Anxiety Migraines Measles Chicken pox Vertigo Recurrent sinusitis Surgical History Status post breast biopsy History of tonsillectomy Family History Mother Memory impairment Father of unknown cause Social History household members: spouse and children Smoking Status: Never smoker alcohol intake: never Assessment & Plan Assessment & Plan narrative: 1. Dementia with acute aggression, present on admission and stable. -scored 2/30 on SLUMS with OT 2. Remote CVA, present on admission and stable. -continue DAPT 3. HTN, present on admission and stable. -continue coreg and losartan 4. HLD, present on admission and stable. -continue statin 5. depression, present on admission and stable. -continue sertraline PLAN: -discharge planning, meeting with state on December 15. -we will recheck labs infrequently. no other change to to her medications or medical planning. Code status is presumed full code. DVT prophylaxis with nothing, patient is ambulatory Proxy is son Alexis. Quality VTE Deep Vein Thrombosis/Pulmonary Embolism Present on Admission: No
[2023-12-15 17:30] VITALS: BP 168/83; PULSE 74; RESP 16; TEMP 36.5; O2SAT 97
[2023-12-15] MEDS: DONEPEZIL 5 MG TABLET 10 MG PO (20:09)
[2023-12-15] MEDS: TRAZODONE 50 MG TABLET PO (20:09)
[2023-12-15] MEDS: DIVALPROEX DR 250 MG TABLET PO (20:09)
[2023-12-15] MEDS: ATORVASTATIN 20 MG TABLET 40 MG PO (20:09)
[2023-12-15] MEDS: QUETIAPINE 25 MG TABLET 50 MG PO (20:09)
[2023-12-15 20:10] VITALS: BP 157/81; PULSE 67
[2023-12-15 20:15] VITALS: BP 157/81; PULSE 67; RESP 18; TEMP 36.3; O2SAT 98
--- NOTE | 2023-12-16 00:56 | PC.NURSE ---
Patient is alert but oriented only to self and able to state month/day of birthdate but not year. Begins to get frustrated/anxious with continued questioning, so other orientation questions not pursued. Breath sounds CTA with RA sat of 98%. HRR but continues to have higher BP at 157/81. Denied nausea. BT present and abdomen is soft. Voiding and denied dysuria. Is able to move/walk independently but provided SBA for safety. Is provided a 1:1 sitter still due to behavioral problems upon first admit but has not shown any signs of aggression or behavior disturbances when this RN has cared for her. Fall risk score is high and bed alarm is activated.
[2023-12-16 09:00] VITALS: BP 134/72; PULSE 62; RESP 16; TEMP 36.1; O2SAT 94
[2023-12-16 09:04] VITALS: BP 134/72; PULSE 62
[2023-12-16] MEDS: carvediloL 12.5 MG TABLET PO ×2 (09:04→19:37)
[2023-12-16] MEDS: ASPIRIN EC 81 MG TABLET PO (09:08)
[2023-12-16] MEDS: DIVALPROEX DR 250 MG TABLET PO (09:08)
[2023-12-16] MEDS: CLOPIDOGREL 75 MG TABLET PO (09:08)
[2023-12-16 09:09] VITALS: BP 134/72; PULSE 62
[2023-12-16] MEDS: QUETIAPINE 25 MG TABLET PO ×3 (09:09→18:41)
[2023-12-16] MEDS: LOSARTAN 25 MG TABLET PO ×2 (09:09→19:42)
[2023-12-16] MEDS: SERTRALINE 50 MG TABLET PO (09:09)
--- NOTE | 2023-12-16 11:00 | CM.DPC ---
DCP Cont. Reviewed EMR and team rounds for status updates. Pt had his assessment this morning at 10:00am with the [facility] group social worker. She will f/u with us re: the daily rate and next steps for placement. Monitoring closely.
[2023-12-16] MEDS: ACETAMINOPHEN 325 MG TABLET 650 MG PO (14:03)
--- NOTE | 2023-12-16 14:07 | P.PN_ITS ---
Subjective Subjective Interval history: Patient with severe dementia, awaiting placement. S: No new complaints. Exam Vital Signs (past 8 hours): - 12/16/23 09:00 12/16/23 09:04 12/16/23 09:09 Temperature 97.0 F L Pulse Rate 62 62 62 Respiratory Rate 16 Blood Pressure 134/72 134/72 134/72 Pulse Oximetry 94 Oxygen Delivery Method Room Air Oxygen Flow Rate 0 Narrative Exam Narrative: NAD, alert. Fluent speech. Ambulating the halls with minimal assistance. Objective Labs 11/29/23 07:10 11/29/23 07:10 [facility] Medical History Dementia Infarction of left basal ganglia Essential hypertension Hypertensive urgency Anxiety Migraines Measles Chicken pox Vertigo Recurrent sinusitis Surgical History Status post breast biopsy History of tonsillectomy Family History Mother Memory impairment Father of unknown cause Social History household members: spouse and children Smoking Status: Never smoker alcohol intake: never Assessment & Plan Assessment & Plan narrative: 1. Dementia with acute aggression, present on admission and stable. -scored 2/30 on SLUMS with OT 2. Remote CVA, present on admission and stable. -continue DAPT 3. HTN, present on admission and stable. -continue coreg and losartan 4. HLD, present on admission and stable. -continue statin 5. depression, present on admission and stable. -continue sertraline PLAN: -discharge planning, meeting with state on December 15. -we will recheck labs infrequently. no other change to to her medications or medical planning. Code status is presumed full code. DVT prophylaxis with nothing, patient is ambulatory Proxy is son Alexis. Quality VTE Deep Vein Thrombosis/Pulmonary Embolism Present on Admission: No
[2023-12-16 19:37] VITALS: BP 177/85; PULSE 72
[2023-12-16] MEDS: QUETIAPINE 25 MG TABLET 50 MG PO (19:37)
[2023-12-16] MEDS: TRAZODONE 50 MG TABLET PO (19:37)
[2023-12-16] MEDS: SENNOSIDES 8.6 MG TABLET PO (19:41)
[2023-12-16 19:42] VITALS: BP 177/85; PULSE 72
[2023-12-16] MEDS: ATORVASTATIN 20 MG TABLET 40 MG PO (19:42)
[2023-12-16] MEDS: DONEPEZIL 5 MG TABLET 10 MG PO (19:42)
[2023-12-16 20:42] VITALS: BP 177/85; PULSE 72; RESP 16; TEMP 36.4; O2SAT 96
--- NOTE | 2023-12-17 07:28 | PM.PN.1 ---
Subjective Subjective Interval history: No new concerns. Denies pain or dyspnea. Exam Vital Signs (past 8 hours): Oxygen Delivery Method Room Air Oxygen Flow Rate 0 Narrative Exam Narrative: NAD, alert and oriented. Fluent speech. Flat affect. Lungs are clear, normal rate and effort. Heart is regular, no murmur gallop or rub. Abdomen is soft, non distended. Extremities are free of edema. Objective Labs 11/29/23 07:10 11/29/23 07:10 [facility] Medical History Dementia Infarction of left basal ganglia Essential hypertension Hypertensive urgency Anxiety Migraines Measles Chicken pox Vertigo Recurrent sinusitis Surgical History Status post breast biopsy History of tonsillectomy Family History Mother Memory impairment Father of unknown cause Social History household members: spouse and children Smoking Status: Never smoker alcohol intake: never Assessment & Plan Assessment & Plan narrative: 1. Dementia with acute aggression, present on admission and stable. - scored 2/30 on SLUMS with OT 2. Remote CVA, present on admission and stable. - continue DAPT 3. HTN, present on admission and stable. - continue coreg and losartan 4. HLD, present on admission and stable. - continue statin 5. depression, present on admission and stable. - continue sertraline [facility] labs [facility]. no other change to to her medications or medical planning. Quality VTE Deep Vein Thrombosis/Pulmonary Embolism Present on Admission: No
--- NOTE | 2023-12-17 08:18 | PC.NURSE ---
pt has been tearful all morning, pt and PCT took a walk through the hallway to help calm her down, breakfast was provided and pt is calmly sitting in her chair watching tv and eating her provided meal.
[2023-12-17] MEDS: CLOPIDOGREL 75 MG TABLET PO (09:23)
[2023-12-17] MEDS: DIVALPROEX 125 MG CAP PO ×3 (09:23→20:20)
[2023-12-17] MEDS: ASPIRIN EC 81 MG TABLET PO (09:23)
[2023-12-17] MEDS: SERTRALINE 50 MG TABLET PO (09:23)
[2023-12-17 09:24] VITALS: BP 176/93; PULSE 69
[2023-12-17] MEDS: QUETIAPINE 25 MG TABLET PO ×3 (09:24→17:41)
[2023-12-17] MEDS: LOSARTAN 25 MG TABLET PO ×2 (09:24→20:20)
[2023-12-17] MEDS: carvediloL 12.5 MG TABLET PO ×2 (09:24→20:21)
[2023-12-17] MEDS: ACETAMINOPHEN 325 MG TABLET 650 MG PO ×2 (12:29→18:25)
[2023-12-17 20:18] VITALS: BP 167/77; PULSE 68; RESP 18; TEMP 36.1; O2SAT 96
[2023-12-17 20:20] VITALS: BP 167/77; PULSE 68
[2023-12-17] MEDS: ATORVASTATIN 20 MG TABLET 40 MG PO (20:20)
[2023-12-17] MEDS: DONEPEZIL 5 MG TABLET 10 MG PO (20:20)
[2023-12-17 20:21] VITALS: BP 167/77; PULSE 68
[2023-12-17] MEDS: QUETIAPINE 25 MG TABLET 50 MG PO (20:21)
[2023-12-17] MEDS: TRAZODONE 50 MG TABLET PO (20:21)
[2023-12-18] VITALS (7 sets, daily range): BP systolic 158–175; BP diastolic 76–94; PULSE 59–66; RESP 20–24; TEMP 35.8–36.6; O2SAT 99
[2023-12-18] MEDS: ONDANSETRON 4 MG ODT PO (06:25)
[2023-12-18] MEDS: ACETAMINOPHEN 325 MG TABLET 650 MG PO (06:25)
--- NOTE | 2023-12-18 06:31 | PC.NURSE ---
Pt woke at 06:00. Requested to go on a walk. While sitting at the edge of the bed, pt informed this RN that she didn't feel well. This RN asked if she could elaborate further, patient stated I don't know. Patient requested to walk again. This RN followed patient with wheelchair. After about 100 feet patient stated that she didn't feel well once again. Patient able to sit in wheelchair and wheeled back into room. Able to mobilize from wheelchair to bed. When questioned, patient endorsed headache and nausea. Stated she felt cold, was visualized shivering briefly. Denied any chest pain/tightness, shortness of breath, numbness or tingling in extremities or face, blurry vision. Endorsed some anxiety. VS @ 06:13: BP 175/94, HR 64, Temporal temp 96.5 ?F, RR 20, SPO2 99% RA. VS @ 0620: BP 167/76, HR 59, Oral temp 97.8 ?F, RR 24, SPO2 99% RA. Respirations equal even unlabored, shallow. This RN provided 650 mg tylenol land 4mg SL zofran. Placed warm blankets for comfort. At 06:30, patient reported feeling less cold. RR 18 equal even unlabored. This RN requested that patient inform staff of any persistence or worsening of symptoms. Will continue to monitor and assess. At 06:40, patient returned to sleep. Will inform oncoming shift.
[2023-12-18] MEDS: LOSARTAN 25 MG TABLET PO ×2 (08:55→21:47)
[2023-12-18] MEDS: carvediloL 12.5 MG TABLET PO ×2 (08:56→21:48)
[2023-12-18] MEDS: SERTRALINE 50 MG TABLET PO (08:56)
[2023-12-18] MEDS: ASPIRIN EC 81 MG TABLET PO (08:57)
[2023-12-18] MEDS: CLOPIDOGREL 75 MG TABLET PO (08:57)
[2023-12-18] MEDS: DIVALPROEX 125 MG CAP PO ×3 (08:57→21:47)
[2023-12-18] MEDS: QUETIAPINE 25 MG TABLET PO ×3 (09:00→18:23)
[2023-12-18] MEDS: haloperidoL 5 MG TABLET PO ×2 (09:37→14:53)
--- NOTE | 2023-12-18 12:31 | PM.PN.1 ---
Subjective Subjective Date Patient Seen: 12/18/23 Time Patient Seen: 08:55 Interval history: The patient is up walking in the halls with staff. She has no complaints. There been no reported behavioral concerns. Exam Vital Signs (past 8 hours): - 12/18/23 06:13 12/18/23 06:17 12/18/23 06:20 Temperature 96.5 F L 97.8 F Pulse Rate 64 59 L Respiratory Rate 20 24 Blood Pressure 175/94 H 167/76 H Pulse Oximetry 99 Oxygen Flow Rate 0 12/18/23 08:55 12/18/23 08:56 Temperature Pulse Rate 64 64 Respiratory Rate Blood Pressure 162/82 H 162/82 H Pulse Oximetry Oxygen Flow Rate Oxygen Delivery Method Room Air Oxygen Flow Rate 0 Narrative Exam Narrative: NAD, alert and oriented. Fluent speech. Flat affect. Lungs are clear, normal rate and effort. Heart is regular, no murmur gallop or rub. Abdomen is soft, non distended. Extremities are free of edema. Objective Labs 11/29/23 07:10 11/29/23 07:10 [facility] Medical History Dementia Infarction of left basal ganglia Essential hypertension Hypertensive urgency Anxiety Migraines Measles Chicken pox Vertigo Recurrent sinusitis Surgical History Status post breast biopsy History of tonsillectomy Family History Mother Memory impairment Father of unknown cause Social History household members: spouse and children Smoking Status: Never smoker alcohol intake: never Assessment & Plan Assessment & Plan narrative: 1. dementia with acute aggression, improved -social work consulted and attempting placement in memory care. Case conference reviewed with planned state assessment on December 15. She cannot return home per report as her reportedly has dementia himself and is unable to meet her care needs. Awaiting adult family home placement. -continue quetiapine 25 mg t.i.d. plus 50 mg at bedtime and Depakote Sprinkles 125 mg t.i.d. -continue donepezil -scored 2/30 on SLUMS with OT 2. Remote CVA, present on admission and stable. - continue DAPT 3. HTN, present on admission and stable. -adequately controlled -continue coreg and losartan 4. HLD, present on admission and stable. - continue atorvastatin 5. depression, present on admission and stable. - continue sertraline PLAN: -discharge planning, pursuing adult family home -we will recheck labs infrequently. -no other change to to her medications or medical planning. Time-Based Coding :: [TOTAL MINUTES] spent with patient and on the chart (including review of chart, obtaining history, exam, reviewing outside data, placing orders, documenting exam and treatment plan, and counseling patient) on [DATE]. Quality VTE Deep Vein Thrombosis/Pulmonary Embolism Present on Admission: No IH PROFEE Charge codes Subsequent inpatient/observation care: 80341
--- NOTE | 2023-12-18 15:45 | PC.NURSE ---
Pt has been easily agitated today. Pt states I just don't know and then begins to cry. Pt quickly turns around and looks at this nurse and says What do you need? and then tells this nurse go away. Pt has been given Haldol twice so far since 939. Pt is restless and wants to roam the halls and attempts to sneak off by pointing to something out one of the windows trying to get the nurse to look in the opposite direction so she can walk towards the exit. Pt needing cueing throughout the day to brush her teeth, to flush the toilet, to wash her hands, and how to drink water through a straw. Pt has denied px throughout the shift.
[2023-12-18] MEDS: QUETIAPINE 25 MG TABLET 50 MG PO (21:47)
[2023-12-18] MEDS: TRAZODONE 50 MG TABLET PO (21:47)
[2023-12-18] MEDS: ATORVASTATIN 20 MG TABLET 40 MG PO (21:47)
[2023-12-18] MEDS: DONEPEZIL 5 MG TABLET 10 MG PO (21:47)
[2023-12-19 07:31] VITALS: BP 151/85; PULSE 62; RESP 14; TEMP 36.4; O2SAT 95
[2023-12-19] MEDS: CLOPIDOGREL 75 MG TABLET PO (08:21)
[2023-12-19] MEDS: ASPIRIN EC 81 MG TABLET PO (08:21)
[2023-12-19] MEDS: DIVALPROEX 125 MG CAP PO ×3 (08:21→20:37)
[2023-12-19] MEDS: SERTRALINE 50 MG TABLET PO (08:21)
[2023-12-19] MEDS: carvediloL 12.5 MG TABLET PO ×2 (08:21→20:37)
--- NOTE | 2023-12-19 08:41 | CM.DPNOTE ---
DCP Cont Placement Spoke with Bridget Garza P [phone], [facility] major case detective this morning. Bridget is hopeful to have patient's functional assessment completed by later today; she is working closely with son Alexis P [phone]. According to Bridget, patient's family have been in contact with Medina at [facility] and are optimistic patient will be accepted there for care. Placed call to Medina at [facility] P [phone], had to LM requested CB. CM team following closely for coordination of discharge plan. YOKO
[2023-12-19] MEDS: LOSARTAN 25 MG TABLET PO ×2 (08:49→20:37)
[2023-12-19] MEDS: QUETIAPINE 25 MG TABLET PO ×3 (08:50→19:29)
--- NOTE | 2023-12-19 12:32 | P.PN_ITS ---
Subjective Subjective Date Patient Seen: 12/19/23 Time Patient Seen: 09:20 Interval history: The patient appears comfortable. She is sitting up talking to her at bedside. They have no complaints. Exam Vital Signs (past 8 hours): - 12/19/23 07:31 12/19/23 07:34 Temperature 97.5 F L Pulse Rate 62 Respiratory Rate 14 Blood Pressure 151/85 H Pulse Oximetry 95 Oxygen Delivery Method Room Air Oxygen Flow Rate 0 Oxygen Delivery Method Room Air Oxygen Flow Rate 0 Narrative Exam Narrative: NAD, alert and oriented. Fluent speech. Flat affect. Lungs are clear, normal rate and effort. Heart is regular, no murmur gallop or rub. Abdomen is soft, non distended. Extremities are free of edema. Objective Labs 11/29/23 07:10 11/29/23 07:10 [facility] Medical History Dementia Infarction of left basal ganglia Essential hypertension Hypertensive urgency Anxiety Migraines Measles Chicken pox Vertigo Recurrent sinusitis Surgical History Status post breast biopsy History of tonsillectomy Family History Mother Memory impairment Father of unknown cause Social History household members: spouse and children Smoking Status: Never smoker alcohol intake: never Assessment & Plan Assessment & Plan narrative: 1. dementia with acute aggression, improved -social work consulted and attempting placement in memory care. Case conference reviewed with planned state assessment on December 15. She cannot return home per report as her reportedly has dementia himself and is unable to meet her care needs. Awaiting adult family home placement. -continue quetiapine 25 mg t.i.d. plus 50 mg at bedtime and Depakote Sprinkles 125 mg t.i.d. -continue donepezil -scored 2/30 on SLUMS with OT 2. Remote CVA, present on admission and stable. - continue DAPT 3. HTN, present on admission and stable. -adequately controlled -continue coreg and losartan 4. HLD, present on admission and stable. - continue atorvastatin 5. depression, present on admission and stable. - continue sertraline PLAN: -discharge planning, pending [facility] versus adult family home -team rounds conducted with nursing, discharge planning, social work, pharmacist -no other change to to her medications or medical planning. Quality VTE Deep Vein Thrombosis/Pulmonary Embolism Present on Admission: No PROFEE Charge codes Subsequent inpatient/observation care: 89617
--- NOTE | 2023-12-19 17:22 | PC.NURSE ---
Addendum entered by Barbie River R.N. 12/19/23 19:11: More restless this afternoon. Taking a walk [id number]. There is nothing going on in her room and she doesn't like that. Perhaps some sensory depravation? Likes to watch people. Likes to go to the end of the acevedo, there is a large window she can look out of, she watches the people and other things, animals, cars driving to fast through the round about. Spotted a squirrel two different times, a bunny once, several dogs. She clearly likes animals, she was smiling and calling them out when she saw them, had a soft laugh. Usually has a flat affect but not during those times. Wanted to speak to her spouse at the end of the day. When dialed, the number is restricted. Called Alexis her son. She and Alexis spoke for a time and he will get a hold of her spouse. Pt less restless after speaking with her son. Original Note: LOC: Calm for most of the day. Was sl restless in the afternoon wanting to go on several walks. Likes to walk freq through out the day. Much calmer over all then when last seen by this junior technical writer. No behaviors seen such as acting out. Was seen kind of mumbling to herself a couple of times. When asked what was going on said I don't know in a calm tone of voice. She is only oriented to self. Knows her bdate if she is told it. Other jonas globally disoriented.
[2023-12-19] MEDS: ATORVASTATIN 20 MG TABLET 40 MG PO (20:36)
[2023-12-19 20:37] VITALS: BP 187/97; PULSE 73
[2023-12-19] MEDS: DONEPEZIL 5 MG TABLET 10 MG PO (20:37)
[2023-12-19] MEDS: QUETIAPINE 25 MG TABLET 50 MG PO (20:37)
[2023-12-19] MEDS: TRAZODONE 50 MG TABLET PO (20:37)
--- NOTE | 2023-12-19 23:20 | PC.NURSE ---
Patient is oriented to self but when asked other questions is unable to answer and becomes frustrated with trying to respond. Breath sounds CTA. HRR but BP elevated at 187/97; medicated with Coreg + Losartan. Denied nausea. BT present and abdomen is soft. Voiding without difficulty and denied dysuria. Is able to turn herself in bed and walks in [place] with SBA. Denied pain. Fall risk score is high but has 1:1 sitter for safety so alarm is not in use at this time. Continuing to await placement.
--- NOTE | 2023-12-20 07:33 | P.PN_ITS ---
Subjective Subjective Date Patient Seen: 12/20/23 Interval history: 12/19/23 23:20 - Nurse Note by Edie Wolfe RN Acct Num: [id number] : 1945 Patient Age: 78 Patient is oriented to self but when asked other questions is unable to answer and becomes frustrated with trying to respond. Breath sounds CTA. HRR but BP elevated at 187/97; medicated with Coreg + Losartan. Denied nausea. BT present and abdomen is soft. Voiding without difficulty and denied dysuria. Is able to turn herself in bed and walks in [place] with SBA. Denied pain. Fall risk score is high but has 1:1 sitter for safety so alarm is not in use at this time. Continuing to await placement. The patient is calmer this morning. She is seen with her caregiver at bedside. Exam Vital Signs (past 8 hours): Oxygen Delivery Method Room Air Oxygen Flow Rate 0 Narrative Exam Narrative: NAD, alert and oriented. Fluent speech. Flat affect. Lungs are clear, normal rate and effort. Heart is regular, no murmur gallop or rub. Abdomen is soft, non distended. Extremities are free of edema. Objective Labs 11/29/23 07:10 11/29/23 07:10 [facility] Medical History Dementia Infarction of left basal ganglia Essential hypertension Hypertensive urgency Anxiety Migraines Measles Chicken pox Vertigo Recurrent sinusitis Surgical History Status post breast biopsy History of tonsillectomy Family History Mother Memory impairment Father of unknown cause Social History household members: spouse and children Smoking Status: Never smoker alcohol intake: never Assessment & Plan Assessment & Plan narrative: 1. dementia with acute aggression, improved -social work consulted and attempting placement in memory care. Case conference reviewed with planned state assessment on December 15. She cannot return home per report as her reportedly has dementia himself and is unable to meet her care needs. Awaiting adult family home placement. -continue quetiapine 25 mg t.i.d. plus 50 mg at bedtime and Depakote Sprinkles 125 mg t.i.d. -continue donepezil -scored on SLUMS with OT -agitation and restlessness overnight, likely due to UTI 2. Acute cystitis. -follow urine culture -treat with SMX/TMP 800/160 b.i.d. for 5 days starting 12/20/2023. 3 Remote CVA, present on admission and stable. - continue DAPT 4. HTN, present on admission and stable. -adequately controlled -continue coreg and losartan 5. HLD, present on admission and stable. - continue atorvastatin 6. depression, present on admission and stable. - continue sertraline PLAN: -treat UTI as above -discharge planning, pending [facility] versus adult family home -team rounds conducted with nursing, discharge planning, social work, pharmacist -no other change to to her medications or medical planning. Time-Based Coding :: [TOTAL MINUTES] spent with patient and on the chart (including review of chart, obtaining history, exam, reviewing outside data, placing orders, documenting exam and treatment plan, and counseling patient) on [DATE]. Quality VTE Deep Vein Thrombosis/Pulmonary Embolism Present on Admission: No IH PROFEE Charge codes Subsequent inpatient/observation care: 87216
[2023-12-20 09:10] VITALS: BP 164/79; PULSE 60
[2023-12-20] MEDS: LOSARTAN 25 MG TABLET PO ×2 (09:10→20:16)
[2023-12-20] MEDS: SERTRALINE 50 MG TABLET PO (09:11)
[2023-12-20] MEDS: QUETIAPINE 25 MG TABLET PO ×2 (09:11→14:33)
[2023-12-20] MEDS: SENNOSIDES 8.6 MG TABLET PO (09:11)
[2023-12-20 09:12] VITALS: BP 164/79; PULSE 61
[2023-12-20] MEDS: carvediloL 12.5 MG TABLET PO ×2 (09:12→20:17)
[2023-12-20] MEDS: ASPIRIN EC 81 MG TABLET PO (09:12)
[2023-12-20] MEDS: CLOPIDOGREL 75 MG TABLET PO (09:12)
[2023-12-20] MEDS: DIVALPROEX 125 MG CAP PO ×3 (09:12→20:16)
[2023-12-20 09:18] VITALS: BP 164/79; PULSE 60; RESP 14; TEMP 36.4; O2SAT 95
[2023-12-20 11:49] LABS: Appearance Urine UA CLOUDY; Bilirubin Urine UA NEGATIVE (NEGATIVE); Color Urine UA YELLOW; Glucose Urine UA NEGATIVE (Negative); Ketones Urine UA NEGATIVE (NEGATIVE); Leukocyte Esterase Urine UA 2+ (NEGATIVE); Nitrite Urine UA POSITIVE (Negative); Occult Blood Urine UA 1+ (Negative); Protein Urine UA NEGATIVE (Negative); Urobilinogen Urine UA 0.2 E.U./dL (0.2)
[2023-12-20 11:55] LABS: Bacteria Urine Many (>30); Culture Indicated Urine Specimen Cultured; RBC Urine 1-5/HPF (0-5/HPF); Squamous Epithelial Cell Urine None Seen (0-5/HPF); Urine Volume 10mL (spun); WBC Urine 30-100/HPF (0-5/HPF)
[2023-12-20] MEDS: TRIMETH/SULFA 160/800 (DS) TABLET 1 TAB PO ×2 (13:38→20:16)
[2023-12-20] MEDS: ACETAMINOPHEN 325 MG TABLET 650 MG PO (14:33)
[2023-12-20] MEDS: PHENAZOPYRIDINE 100 MG TABLET PO ×2 (14:34→20:16)
--- NOTE | 2023-12-20 14:40 | PC.NURSE ---
Per slot shift supervisor sitter the pt was very restless, did not sleep much, couldn't not sit still for any length of time and easily overwhelmed. During day shift so far the pt is has been extremely restless wanting to walk up and down the halls continuously. Pt stops in the middle of the acevedo and turns and looks at this nurse and asks what was I doing? I don't know, and this nurse responses with we are walking because that's what you wanted to do, and then pt stated OK, and continues on walking. The pt has been doing the same thing for hours and appeared to be more confused as compared to December 17, which was discussed with hospitalist and urine sample was collected. Pt has a UTI, urine culture pending and the pt was started on Bactrim DS BID. Multiple times throughout the shift the pt has been looking out the window, then puts her hand up to her forehead and starting shaking her head and audible sighs can be heard and when asked if she's feeling overwhelmed, the pt has responded yes 3 out of the 4 times asked. This RN continues to push fluids with the pt. The pt needs cueing on how to take sip of water from a cup, cueing on how to sip from a straw while not pouring the water all over herself. Pt needed to be reminded to wipe herself clean after urinating this morning and then had to be reminded to use soap to wash her hands and to flush the toilet. Pt smiled while listening to music today.
[2023-12-20] MEDS: QUETIAPINE 25 MG TABLET 50 MG PO ×2 (18:00→20:16)
[2023-12-20 19:00] VITALS: BP 158/83; PULSE 65; RESP 16; TEMP 36.6; O2SAT 98
[2023-12-20] MEDS: DONEPEZIL 5 MG TABLET 10 MG PO (20:16)
[2023-12-20] MEDS: ATORVASTATIN 20 MG TABLET 40 MG PO (20:17)
[2023-12-20] MEDS: TRAZODONE 50 MG TABLET PO (20:17)
--- NOTE | 2023-12-21 06:03 | PC.NURSE ---
seam checker: Patient is alert and oriented to self, denies pain or discomfort, VSS. Ambulates frequently in the room and hallway when awake. Requires cueing during ADLs. Encouraging PO fluids. Took nighttime medications w/o difficulty. No complications noted overnight.
[2023-12-21] MEDS: SERTRALINE 50 MG TABLET PO (08:17)
[2023-12-21] MEDS: PHENAZOPYRIDINE 100 MG TABLET PO ×3 (08:17→20:21)
[2023-12-21] MEDS: TRIMETH/SULFA 160/800 (DS) TABLET 1 TAB PO ×2 (08:17→20:22)
[2023-12-21] MEDS: DIVALPROEX 125 MG CAP PO ×3 (08:17→20:21)
[2023-12-21] MEDS: CLOPIDOGREL 75 MG TABLET PO (08:17)
[2023-12-21] MEDS: ASPIRIN EC 81 MG TABLET PO (08:17)
[2023-12-21 08:18] VITALS: BP 162/81; PULSE 62
[2023-12-21] MEDS: carvediloL 12.5 MG TABLET PO ×2 (08:18→20:24)
[2023-12-21 08:19] VITALS: BP 162/81; PULSE 62
[2023-12-21] MEDS: LOSARTAN 25 MG TABLET PO ×2 (08:19→20:24)
[2023-12-21] MEDS: QUETIAPINE 25 MG TABLET 50 MG PO ×4 (08:26→20:21)
[2023-12-21 08:27] VITALS: BP 162/81; PULSE 62; RESP 16; O2SAT 97
--- NOTE | 2023-12-21 11:12 | CM.DPNOTE ---
DCP Note Per hospitalist in morning rounds, increased seroquel yesterday due to pt's restlessness. Pt remains calm and cooperative with staff here. Ambulating hallways often with nursing staff support. P: pending [facility] manager study Bridget's functional assessment. anticipate dc to [facility] early/mid next week. CM team will coordinate with son/[facility]/HCS Friday. likely facility transport Important Contacts for easy reference: [facility] Blue Line Operator Bridget Garza P [phone] email [email or web address] Bunny Espinoza P [phone] [facility] P [phone] FRED Navarro
--- NOTE | 2023-12-21 12:53 | P.PN_ITS ---
Subjective Subjective Date Patient Seen: 12/21/23 Time Patient Seen: 08:52 Interval history: No new events overnight. Reportedly calm since quetiapine was increased to 50 mg q.i.d. and UTI treatment started. Exam Vital Signs (past 8 hours): - 12/21/23 08:18 12/21/23 08:19 12/21/23 08:27 Pulse Rate 62 62 62 Respiratory Rate 16 Blood Pressure 162/81 H 162/81 H 162/81 H Pulse Oximetry 97 Oxygen Delivery Method Room Air Oxygen Flow Rate 0 Narrative Exam Narrative: NAD, alert and oriented. Fluent speech. Flat affect. Lungs are clear, normal rate and effort. Heart is regular, no murmur gallop or rub. Abdomen is soft, non distended. Extremities are free of edema. Objective Labs 11/29/23 07:10 11/29/23 07:10 [facility] Medical History Dementia Infarction of left basal ganglia Essential hypertension Hypertensive urgency Anxiety Migraines Measles Chicken pox Vertigo Recurrent sinusitis Surgical History Status post breast biopsy History of tonsillectomy Family History Mother Memory impairment Father of unknown cause Social History household members: spouse and children Smoking Status: Never smoker alcohol intake: never Assessment & Plan Assessment & Plan narrative: 1. dementia with acute aggression, improved -social work consulted and attempting placement in memory care. Case conference reviewed with planned state assessment on December 15. She cannot return home per report as her reportedly has dementia himself and is unable to meet her care needs. Awaiting adult family home placement. -continue quetiapine 50 mg t.i.d. plus 50 mg at bedtime and Depakote Sprinkles 125 mg t.i.d. -continue donepezil -scored 2/30 on SLUMS with OT -agitation and restlessness overnight, likely due to UTI, improved with increasing quetiapine -consider adjustment of quetiapine back to 25 mg t.i.d. plus 50 mg at bedtime following treatment of UTI, or continue same if doing well 2. Acute cystitis. -follow urine culture, currently showing gram-negative bacilli -treat with SMX/TMP 800/160 b.i.d. for 5 days starting 12/20/2023. 3 Remote CVA, present on admission and stable. - continue DAPT 4. HTN, present on admission and stable. -adequately controlled -continue coreg and losartan 5. HLD, present on admission and stable. - continue atorvastatin 6. depression, present on admission and stable. - continue sertraline PLAN: -treat UTI as above, follow culture -discharge planning, pending [facility] versus adult family home -team rounds conducted with nursing, discharge planning, social work, pharmacist again today -reassess quetiapine dosing in 1-2 days as noted above. Time-Based Coding :: [TOTAL MINUTES] spent with patient and on the chart (including review of chart, obtaining history, exam, reviewing outside data, placing orders, documenting exam and treatment plan, and counseling patient) on [DATE]. Quality VTE Deep Vein Thrombosis/Pulmonary Embolism Present on Admission: No PROFEE Charge codes Subsequent inpatient/observation care: [id number]
--- NOTE | 2023-12-21 18:20 | PC.NURSE ---
Today Friday12/20/2023 I was ambulating Brittani in the hallway when she suddenly started to complain about the bottom of her right foot hurting, she then favored that foot as we went back to her room. I took both of her socks off and soaked her feet in warm h2o, I then had Neena the RN come in and assess the feet and nails, Brittani definitely needs her right foot toenails cut they are way to long and could possibly be the cause of the pain, both the Hallux toenails are bruised. Brittani's brought in her walking shoes tonight. ~ Silvia Mitchell CNA
[2023-12-21 20:00] VITALS: BP 146/78; PULSE 74; RESP 17; TEMP 36.4; O2SAT 95
[2023-12-21] MEDS: DONEPEZIL 5 MG TABLET 10 MG PO (20:21)
[2023-12-21] MEDS: TRAZODONE 50 MG TABLET PO (20:21)
[2023-12-21] MEDS: ATORVASTATIN 20 MG TABLET 40 MG PO (20:22)
[2023-12-21 20:24] VITALS: BP 146/78; PULSE 74
[2023-12-22 08:49] VITALS: BP 147/75; PULSE 68; RESP 16; TEMP 35.9; O2SAT 96
[2023-12-22 10:35] VITALS: BP 147/75
[2023-12-22] MEDS: ASPIRIN EC 81 MG TABLET PO (10:35)
[2023-12-22] MEDS: carvediloL 12.5 MG TABLET PO ×2 (10:35→20:30)
[2023-12-22] MEDS: CLOPIDOGREL 75 MG TABLET PO (10:35)
[2023-12-22 10:36] VITALS: BP 147/75
[2023-12-22] MEDS: LOSARTAN 25 MG TABLET PO ×2 (10:36→20:32)
[2023-12-22] MEDS: PHENAZOPYRIDINE 100 MG TABLET PO (10:36)
[2023-12-22] MEDS: TRIMETH/SULFA 160/800 (DS) TABLET 1 TAB PO ×2 (10:36→20:30)
[2023-12-22] MEDS: SERTRALINE 50 MG TABLET PO (10:36)
[2023-12-22] MEDS: DIVALPROEX 125 MG CAP PO ×3 (10:36→20:31)
[2023-12-22] MEDS: QUETIAPINE 25 MG TABLET 50 MG PO ×4 (10:41→20:32)
--- NOTE | 2023-12-22 15:23 | CM.DPC ---
Addendum entered by FRED Mora 12/22/23 15:52: ADD: HCS Bridget emailed pt's Functional assessment and daily rate to CM team. Not printed yet as awaiting bedside assessment from [facility] tomorrow to see if they can accept. BF Original Note: DCP LTC placement cont: Per MD, pt was UTI+ over the weekend and being treated with antibiotics, otherwise remains stable for d/c when placement secured. NATALIA observed pt walking independently with staff multiple times around the unit and hallways and following directives and calm and cooperative. NATALIA called Medina at [facility] and she confirms they received pt's HCS assessment and daily rate and reviewing and will complete bedside assessment with pt tomorrow 12/22 at 1000 to determine if they can accept her. NATALIA reached out to pt's assigned HCS worker Bridget to request her Functional Assessment and daily rate in case [facility] declines accepting pt and new search needed for memory care facilities. FRED Mora
--- NOTE | 2023-12-22 15:28 | PM.PN.1 ---
Subjective Subjective Interval history: Patient with severe dementia, awaiting placement. S: No new complaints. Exam Vital Signs (past 8 hours): - 12/22/23 08:49 12/22/23 10:35 12/22/23 10:36 Temperature 96.7 F L Pulse Rate 68 Respiratory Rate 16 Blood Pressure 147/75 H 147/75 H 147/75 H Pulse Oximetry 96 Oxygen Flow Rate 0 Oxygen Delivery Method Room Air Oxygen Flow Rate 0 Narrative Exam Narrative: NAD, alert and oriented. Fluent speech. Flat affect. Lungs are clear, normal rate and effort. Heart is regular, no murmur gallop or rub. Abdomen is soft, non distended. Extremities are free of edema. Objective Labs 11/29/23 07:10 11/29/23 07:10 [facility] Medical History Dementia Infarction of left basal ganglia Essential hypertension Hypertensive urgency Anxiety Migraines Measles Chicken pox Vertigo Recurrent sinusitis Surgical History Status post breast biopsy History of tonsillectomy Family History Mother Memory impairment Father of unknown cause Social History household members: spouse and children Smoking Status: Never smoker alcohol intake: never Assessment & Plan Assessment & Plan narrative: 1. dementia with acute aggression, improved -social work consulted and attempting placement in memory care. Case conference reviewed with planned state assessment on December 15. She cannot return home per report as her reportedly has dementia himself and is unable to meet her care needs. Awaiting adult family home placement. -continue quetiapine 50 mg t.i.d. plus 50 mg at bedtime and Depakote Sprinkles 125 mg t.i.d. -continue donepezil -scored 2/30 on SLUMS with OT -agitation and restlessness overnight, likely due to UTI, improved with increasing quetiapine -consider adjustment of quetiapine back to 25 mg t.i.d. plus 50 mg at bedtime following treatment of UTI, or continue same if doing well 2. Acute cystitis, developed after admission -urine culture with enterobacter, sensitive to bactrim, which was started initially, will not change. -treat with SMX/TMP 800/160 b.i.d. for 5 days starting 12/20/2023. 3 Remote CVA, present on admission and stable. - continue DAPT 4. HTN, present on admission and stable. -adequately controlled -continue coreg and losartan 5. HLD, present on admission and stable. - continue atorvastatin 6. depression, present on admission and stable. - continue sertraline PLAN: -treat UTI as above, follow culture -discharge planning, pending [facility] versus adult family home -team rounds conducted with nursing, discharge planning, social work, pharmacist again today -reassess quetiapine dosing after completion of antibiotic. Time-Based Coding :: [TOTAL MINUTES] spent with patient and on the chart (including review of chart, obtaining history, exam, reviewing outside data, placing orders, documenting exam and treatment plan, and counseling patient) on [DATE]. Quality VTE Deep Vein Thrombosis/Pulmonary Embolism Present on Admission: No
[2023-12-22 20:30] VITALS: BP 147/75; PULSE 68
[2023-12-22] MEDS: ATORVASTATIN 20 MG TABLET 40 MG PO (20:30)
[2023-12-22] MEDS: ACETAMINOPHEN 325 MG TABLET 650 MG PO (20:31)
[2023-12-22] MEDS: TRAZODONE 50 MG TABLET PO (20:31)
[2023-12-22 20:32] VITALS: BP 147/75; PULSE 68
[2023-12-22] MEDS: DONEPEZIL 5 MG TABLET 10 MG PO (20:32)
[2023-12-23 08:00] VITALS: BP 157/74; PULSE 65; RESP 16; TEMP 36.7; O2SAT 95
[2023-12-23] MEDS: carvediloL 12.5 MG TABLET PO ×2 (08:55→21:05)
[2023-12-23] MEDS: ASPIRIN EC 81 MG TABLET PO (08:56)
[2023-12-23] MEDS: DIVALPROEX 125 MG CAP PO ×3 (08:56→21:01)
[2023-12-23] MEDS: SERTRALINE 50 MG TABLET PO (08:56)
[2023-12-23] MEDS: CLOPIDOGREL 75 MG TABLET PO (08:56)
[2023-12-23] MEDS: LOSARTAN 25 MG TABLET PO ×2 (08:56→21:02)
[2023-12-23] MEDS: ACETAMINOPHEN 325 MG TABLET 650 MG PO (08:56)
[2023-12-23] MEDS: TRIMETH/SULFA 160/800 (DS) TABLET 1 TAB PO (08:57)
--- NOTE | 2023-12-23 12:52 | P.PN_ITS ---
Subjective Subjective Interval history: Patient with severe dementia, awaiting placement. S: No new complaints. Exam Vital Signs (past 8 hours): - 12/23/23 07:45 12/23/23 08:00 Temperature 98.0 F Pulse Rate 65 Respiratory Rate 16 Blood Pressure 157/74 H Pulse Oximetry 95 Oxygen Delivery Method Room Air Oxygen Flow Rate 0 Oxygen Delivery Method Room Air Oxygen Flow Rate 0 Narrative Exam Narrative: NAD, alert and oriented. Fluent speech. Flat affect. Lungs are clear, normal rate and effort. Heart is regular, no murmur gallop or rub. Abdomen is soft, non distended. Extremities are free of edema. Objective Labs 11/29/23 07:10 11/29/23 07:10 [facility] Medical History Dementia Infarction of left basal ganglia Essential hypertension Hypertensive urgency Anxiety Migraines Measles Chicken pox Vertigo Recurrent sinusitis Surgical History Status post breast biopsy History of tonsillectomy Family History Mother Memory impairment Father of unknown cause Social History household members: spouse and children Smoking Status: Never smoker alcohol intake: never Assessment & Plan Assessment & Plan narrative: 1. dementia with acute aggression, improved -social work consulted and attempting placement in memory care. Case conference reviewed with planned state assessment on December 15. She cannot return home per report as her reportedly has dementia himself and is unable to meet her care needs. Awaiting adult family home placement. -continue quetiapine 50 mg t.i.d. plus 50 mg at bedtime and Depakote Sprinkles 125 mg t.i.d. -continue donepezil -scored 2/30 on SLUMS with OT -agitation and restlessness overnight, likely due to UTI, improved with increasing quetiapine -consider adjustment of quetiapine back to 25 mg t.i.d. plus 50 mg at bedtime following treatment of UTI, or continue same if doing well 2. Acute cystitis, developed after admission -urine culture with enterobacter, sensitive to bactrim, which was started initially, will not change. -treat with SMX/TMP 800/160 b.i.d. for 3 days starting 12/20/2023. Now completed treatments. 3 Remote CVA, present on admission and stable. - continue DAPT 4. HTN, present on admission and stable. -adequately controlled -continue coreg and losartan 5. HLD, present on admission and stable. - continue atorvastatin 6. depression, present on admission and stable. - continue sertraline PLAN: -treated UTI as above with bactrim, now completed therapy. -discharge planning, pending [facility] versus adult family home -team rounds conducted with nursing, discharge planning, social work, pharmacist again today -reassess quetiapine dosing after completion of antibiotic. Time-Based Coding :: [TOTAL MINUTES] spent with patient and on the chart (including review of chart, obtaining history, exam, reviewing outside data, placing orders, documenting exam and treatment plan, and counseling patient) on [DATE]. Quality VTE Deep Vein Thrombosis/Pulmonary Embolism Present on Admission: No
--- NOTE | 2023-12-23 13:14 | CM.DPC ---
DCP Cont. Reviewed EMR and team rounds for status updates. [facility] sent their internet systems administrator over today to complete their bedside assessment in order for them to decide if they can accept her. This SENIOR ACCOUNTING SPECIALIST provided clinicals per their request. Will plan to f/u with her again tomorrow morning for their decision.
[2023-12-23] MEDS: QUETIAPINE 25 MG TABLET 50 MG PO ×3 (14:30→21:01)
[2023-12-23 21:02] VITALS: BP 128/71; PULSE 68
[2023-12-23] MEDS: ATORVASTATIN 20 MG TABLET 40 MG PO (21:02)
[2023-12-23] MEDS: DONEPEZIL 5 MG TABLET 10 MG PO (21:02)
[2023-12-23] MEDS: TRAZODONE 50 MG TABLET PO (21:02)
[2023-12-23 21:05] VITALS: BP 128/71; PULSE 68
[2023-12-24 08:00] VITALS: BP 152/75; PULSE 65; RESP 16; TEMP 36.2
[2023-12-24] MEDS: carvediloL 12.5 MG TABLET PO ×2 (09:22→20:41)
[2023-12-24] MEDS: QUETIAPINE 25 MG TABLET 50 MG PO ×4 (09:22→20:41)
[2023-12-24] MEDS: DIVALPROEX 125 MG CAP PO ×3 (09:22→20:40)
[2023-12-24] MEDS: CLOPIDOGREL 75 MG TABLET PO (09:22)
[2023-12-24] MEDS: SERTRALINE 50 MG TABLET PO (09:22)
[2023-12-24] MEDS: ASPIRIN EC 81 MG TABLET PO (09:22)
[2023-12-24] MEDS: LOSARTAN 25 MG TABLET PO ×2 (11:08→20:40)
[2023-12-24] MEDS: ACETAMINOPHEN 325 MG TABLET 650 MG PO (11:08)
--- NOTE | 2023-12-24 13:41 | PM.PN.1 ---
Subjective Subjective Interval history: Patient with severe dementia, awaiting placement. Exam Vital Signs (past 8 hours): - 12/24/23 07:40 12/24/23 08:00 Temperature 97.1 F L Pulse Rate 65 Respiratory Rate 16 Blood Pressure 152/75 H Oxygen Delivery Method Room Air Oxygen Delivery Method Room Air Oxygen Flow Rate 0 Narrative Exam Narrative: NAD, alert and oriented. Fluent speech. Flat affect. Lungs are clear, normal rate and effort. Heart is regular, no murmur gallop or rub. Abdomen is soft, non distended. Extremities are free of edema. Objective Labs 11/29/23 07:10 11/29/23 07:10 [facility] Medical History Dementia Infarction of left basal ganglia Essential hypertension Hypertensive urgency Anxiety Migraines Measles Chicken pox Vertigo Recurrent sinusitis Surgical History Status post breast biopsy History of tonsillectomy Family History Mother Memory impairment Father of unknown cause Social History household members: spouse and children Smoking Status: Never smoker alcohol intake: never Assessment & Plan Assessment & Plan narrative: 1. dementia with acute aggression, improved -social work consulted and attempting placement in memory care. Case conference reviewed with planned state assessment on December 15. She cannot return home per report as her reportedly has dementia himself and is unable to meet her care needs. Awaiting adult family home placement. -continue quetiapine 50 mg t.i.d. plus 50 mg at bedtime and Depakote Sprinkles 125 mg t.i.d. -continue donepezil -scored 2/30 on SLUMS with OT -agitation and restlessness overnight, likely due to UTI, improved with increasing quetiapine -consider adjustment of quetiapine back to 25 mg t.i.d. plus 50 mg at bedtime following treatment of UTI, or continue same if doing well 2. Acute cystitis, developed after admission, now completed treatment. -urine culture with enterobacter, sensitive to bactrim, which was started initially, will not change. -treat with SMX/TMP 800/160 b.i.d. for 3 days starting 12/20/2023. Now completed treatments. 3 Remote CVA, present on admission and stable. - continue DAPT 4. HTN, present on admission and stable. -adequately controlled -continue coreg and losartan 5. HLD, present on admission and stable. - continue atorvastatin 6. depression, present on admission and stable. - continue sertraline PLAN: -discharge planning, pending [facility] versus adult family home, possibly in the next 1-2 days. -team rounds conducted with nursing, discharge planning, social work, pharmacist again today Time-Based Coding :: [TOTAL MINUTES] spent with patient and on the chart (including review of chart, obtaining history, exam, reviewing outside data, placing orders, documenting exam and treatment plan, and counseling patient) on [DATE]. Quality VTE Deep Vein Thrombosis/Pulmonary Embolism Present on Admission: No
--- NOTE | 2023-12-24 13:46 | CM.DPC ---
DCP Cont. Reviewed EMR and team rounds for status updates. [facility] pt, today her son Alexis went over there and signed all admission forms, provided pt's ID, social security info, and made a plan to deliver some of her furniture and belongings. The plan is for her to d/c there tomorrow. Will call them in the am to discuss transport time.
[2023-12-24] MEDS: DONEPEZIL 5 MG TABLET 10 MG PO (20:40)
[2023-12-24] MEDS: ATORVASTATIN 20 MG TABLET 40 MG PO (20:41)
[2023-12-24] MEDS: TRAZODONE 50 MG TABLET PO (20:51)
--- NOTE | 2023-12-25 08:25 | CM.DPC ---
DCP Cont. Reviewed EMR and team rounds for status updates. [facility], they will be picking up pt today at 11:00am. We will fax d/c clinicals and medlist/scripts prior to her departure. Her dtr and spouse will arrive beforehand to assist her with this transition.
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
[2023-12-25] MEDS: SERTRALINE 50 MG TABLET PO (09:25)
[2023-12-25] MEDS: CLOPIDOGREL 75 MG TABLET PO (09:25)
[2023-12-25] MEDS: DIVALPROEX 125 MG CAP PO (09:25)
[2023-12-25] MEDS: ASPIRIN EC 81 MG TABLET PO (09:26)
[2023-12-25 09:28] VITALS: BP 169/81; PULSE 62
[2023-12-25] MEDS: carvediloL 12.5 MG TABLET PO (09:28)
[2023-12-25] MEDS: LOSARTAN 25 MG TABLET PO (09:28)
[2023-12-25] MEDS: QUETIAPINE 25 MG TABLET 50 MG PO (09:29)
--- NOTE | 2023-12-25 10:42 | PC.NURSE ---
Addendum entered by Stephanie Packer R.N. 12/25/23 12:00: IV not present, pt ambulated with facility fundraising sale representative and spouse to private vehicle at approximately 1155 Original Note: pt resting in bed. Denies pain. Numerous walks in [place] with nursing staff. Report called at [phone], unable to locate receiving nurse, awaiting callback. pt tolerated meal. ambulating in halls with nursing staff.
== END 2023-12-25 11:55 ==
LOC: ED 12-01 12:52 → AC 12-01 15:08
PROVIDERS: Emergency Medicine; Internal Medicine; Admitting Provider Student in an Organized Health Care Education/Training Program; Emergency Provider Emergency Medicine; Family Provider Student in an Organized Health Care Education/Training Program; PCP Family Medicine; Referring Provider Emergency Medicine; Visit Provider Student in an Organized Health Care Education/Training Program
DX: F03.911 Unspecified dementia, unspecified severity, with agitation (principal); Z11.52 Encounter for screening for COVID-19; N30.00 Acute cystitis without hematuria; I10 Essential (primary) hypertension; E78.5 Hyperlipidemia, unspecified; F32.A Depression, unspecified; Z86.73 Personal history of transient ischemic attack (TIA), and cerebral infarction without residual deficits
CPT/HCPCS: 36415; 70450; 80053; 80320; 81001; 82962; 85025; 87077; 87086; 87186; 87635; 93005; 96372; 97165; 99284; G0378; J1630

== ENCOUNTER → 2024-06-28 14:56 | Outpatient (ROUT) | payer MEDICARE, OTHER, SELFPAY ==
[2024-06-28 15:05] LABS: Appearance Urine UA CLEAR; Bilirubin Urine UA NEGATIVE (NEGATIVE); Color Urine UA YELLOW; Glucose Urine UA NEGATIVE (Negative); Ketones Urine UA NEGATIVE (NEGATIVE); Leukocyte Esterase Urine UA TRACE (NEGATIVE); Nitrite Urine UA NEGATIVE (Negative); Occult Blood Urine UA NEGATIVE (Negative); Protein Urine UA NEGATIVE (Negative); Urobilinogen Urine UA 0.2 E.U./dL (0.2)
[2024-06-28 15:44] LABS: pH Urine UA 7.5 (4.5-8.0)
[2024-06-28 15:46] LABS: Bacteria Urine Moderate (10-30); Culture Indicated Urine Cult Not Indicated; RBC Urine 0-1/HPF (0-5/HPF); Squamous Epithelial Cell Urine 1-5 /HPF (0-5/HPF); Urine Volume 10mL (spun); WBC Urine 1-5/HPF (0-5/HPF)
== END ==
PROVIDERS: Family Provider Student in an Organized Health Care Education/Training Program; PCP Family Medicine; Visit Provider Registered Nurse
DX: R35.0 Frequency of micturition (principal)
CPT/HCPCS: 81001

== ENCOUNTER 2024-07-09 08:16 | Emergency (ER) | payer MEDICARE, OTHER, MEDICAID, SELFPAY ==
[2024-07-09] VITALS (10 sets, daily range): BP systolic 159–188; BP diastolic 77–95; PULSE 78–102; RESP 17–28; TEMP 37.1–37.4; O2SAT 96–99
--- NOTE | 2024-07-09 08:43 | DI.RAD.S_ITS ---
PROCEDURE: XR CHEST 1V INDICATIONS: suspected sepsis TECHNIQUE: One view of the chest was acquired. COMPARISON: [facility], CR, XR CHEST 1V, 07/01/2020, 14:25. FINDINGS: Surgical changes and devices: None. Lungs and pleura: Small focal pneumonia, right lung base. No pleural effusions or pneumothorax. Mediastinum: Mediastinal contours appear normal. Heart size is normal. Bones and chest wall: No suspicious bony lesions. Overlying soft tissues appear unremarkable. IMPRESSION: Small focal pneumonia, right lung base. Dictated by: Jordon Hays M.D. on 07/09/2024 at 9:21 Approved by: Jordon Hays M.D. on 07/09/2024 at 9:22
--- NOTE | 2024-07-09 08:48 | EKG_ITS ---
[facility] [address] [place] [address] Test Date: 2024-07-09 Pat Name: Brittani Morgan Department: [facility] Room: Gender: Female Search Marketing Analyst: BARNEY : 1945 Requested By: Order Number: [id number] Reading MD: Cliff Kumar Measurements Intervals [place] Rate: 97 P: 3 VT: 134 QRS: -36 QRSD: 98 T: -28 QT: 356 QTc: 452 Interpretive Statements Normal sinus rhythm Left axis deviation Incomplete right bundle branch block Nonspecific ST and T wave abnormality Electronically Signed On 07-09-2024 12:56:32 PST by Cliff Kumar
[2024-07-09 08:50] LABS: Add Manual Diff / Slide Review NO; Basophils Absolute Auto 0 /uL (0-100); Basophils Percent Auto 0.5 % (0-2); Eosinophils Absolute Auto 0 /uL (0-450); Hematocrit 41.1 % (36-46); Lymphocytes Absolute Auto 500 /uL (1100-4500); Lymphocytes Percent Auto 5.3 % (25-40); Mean Corpuscular HGB Conc 34.1 % (30-36); Mean Corpuscular Hemoglobin 32.9 PG (26-34); Mean Corpuscular Volume 96.6 fL (80-100); Monocytes Absolute Auto 800 /uL (0-900); Monocytes Percent Auto 9.1 % (3-14); Neutrophils Absolute Auto 7900 /uL (1500-7000); Neutrophils Percent Auto 85.1 % (50-75); Platelet Count 206 X10^3/uL (150-400); Red Blood Cell Count 4.25 X10^6/uL (4.0-5.2); Red Cell Distribution Width 12.6 % (11.6-14.8); White Blood Cell Count 9.3 X10^3/uL (4.5-11.0)
[2024-07-09 08:51] LABS: INR 1.1 (0.9-1.3); Prothrombin Time 12.3 SECONDS (9.4-12.5)
[2024-07-09 08:52] LABS: Appearance Urine UA SL CLOUDY; Bilirubin Urine UA NEGATIVE (NEGATIVE); Color Urine UA YELLOW; Glucose Urine UA NEGATIVE (Negative); Ketones Urine UA NEGATIVE (NEGATIVE); Leukocyte Esterase Urine UA 1+ (NEGATIVE); Nitrite Urine UA NEGATIVE (Negative); Occult Blood Urine UA NEGATIVE (Negative); Protein Urine UA NEGATIVE (Negative); Urobilinogen Urine UA 0.2 E.U./dL (0.2)
[2024-07-09 08:54] LABS: Urine Volume 10mL (spun)
[2024-07-09 08:54] LABS: PTT Partial Thromboplastin Tim 33 SECONDS (25.1-36.5)
[2024-07-09 08:55] LABS: RBC Urine None Seen (0-5/HPF); WBC Urine 5-10/HPF (0-5/HPF)
[2024-07-09 08:56] LABS: Alanine Aminotransferase 15 IU/L (<35); Albumin 4.3 g/dL (3.5-5.0); Albumin Globulin Ratio 1.2 (1.0-2.8); Alkaline Phosphatase 92 U/L (38-126); Aspartate Aminotransferase 28 IU/L (14-36); Bilirubin Total 0.8 mg/dL (0.2-1.3); Blood Urea Nitrogen 13 mg/dL (7-17); Calcium 9.5 mg/dL (8.4-10.2); Carbon Dioxide 31 mmol/L (22-32); Chloride 101 mmol/L (98-107); Estimated Glomerular Filt Rate > 60 mL/min (>60); Globulin 3.5 g/dL (1.7-4.1); Glucose 151 mg/dL (80-110); HEMOLYSIS < 15 (0-50); Lipase 46 U/L (23-300); Potassium 3.8 mmol/L (3.4-5.1); Sodium 138 mmol/L (137-145); Total Protein 7.8 g/dL (6.3-8.2)
[2024-07-09 08:56] LABS: Bacteria Urine Many (>30); Culture Indicated Urine Specimen Cultured; Squamous Epithelial Cell Urine None Seen (0-5/HPF)
--- NOTE | 2024-07-09 09:00 | PC.NURSE ---
Assumed cares of patient. Pt lying back in [facility], appears in NAD. Answers questions, y and n response. Denies pain.
--- NOTE | 2024-07-09 09:00 | ED.AMS ---
HPI - Altered Mental Status General Chief Complaint: Altered Mental Status Stated Complaint: AMS Time Seen by Provider: 07/09/24 08:35 Source: EMS Mode of arrival: EMS History of Present Illness HPI narrative: Patient is a 78-year-old female history of dementia anxiety hypertension prior stroke presenting today with altered mental status. At baseline she only answers yes or no. Today she was nonverbal presents with strong urine smell history of UTI also cough noted. Today when I asked her if she has pain she said ?I do not know.Does not appear in pain able to follow some commands is overall poor historian. History is received from triage note and prior admission for which she received placement in December of 2023. I spoke with son Alexis on the phone. He reports that she actually has a nonstop walker. She was able to feed herself she was not in charge of her own medication. Has not been sleeping well over the last few nights. also has some memory issues. Related Data Home Medications Medication Instructions Recorded Confirmed donepezil 5 mg tablet 5 mg PO ONCE PM 12/25/23 sertraline 25 mg tablet 25 mg PO DAILY 12/25/23 Previous Rx's Medication Instructions Recorded aspirin 81 mg tablet,delayed 81 mg PO DAILY #90 tabs 09/23/22 release atorvastatin 40 mg tablet 40 mg PO BEDTIME #90 tabs 08/27/23 carvedilol 12.5 mg tablet 12.5 mg PO BID #180 tabs 08/27/23 clopidogrel 75 mg tablet 75 mg PO DAILY #90 tabs 08/27/23 trazodone 50 mg tablet 50 mg PO BEDTIME #30 tabs 09/26/23 donepezil 10 mg tablet 10 mg PO BEDTIME #90 tabs 11/04/23 losartan 25 mg tablet 25 mg PO BID #180 tabs 11/04/23 sertraline 50 mg tablet 50 mg PO DAILY #90 tabs 11/04/23 acetaminophen 325 mg tablet 650 mg (2 x 325 mg) PO Q6H PRN 12/25/23 Fever/Mild Pain (1-3) #30 tabs divalproex 125 mg capsule,delayed 125 mg PO TID #90 caps 12/25/23 release sprinkle haloperidol 5 mg tablet 5 mg PO Q4HR PRN Agitation #30 tabs 12/25/23 hydrocodone 5 mg-acetaminophen 325 1 tab PO Q4HR PRN Pain, Moderate 12/25/23 mg tablet (4-6) #20 tabs polyethylene glycol 3350 17 gram 17 gm PO DAILY PRN Constipation 12/25/23 oral powder packet #30 ea quetiapine 50 mg tablet 50 mg PO BEDTIME #90 tabs 12/25/23 quetiapine 50 mg tablet 50 mg PO TID@0900,1500,1800 #270 12/25/23 tabs sennosides 8.6 mg tablet (senna) 8.6 mg PO BID PRN Constipation #90 12/25/23 tabs amoxicillin 500 mg capsule 1,000 mg (2 x 500 mg) PO TID 5 07/09/24 days #30 caps azithromycin 250 mg tablet See Rx Instructions PO .COMPLEX #6 07/09/24 tabs Allergies Allergy/AdvReac Type Severity Reaction Status Date / Time Mqcopfv-[id number] Reductase AdvReac Intermediate muscle Verified 07/09/24 08:25 Inhibitor pain, [Bjqjzmc-Snb-Kvo Reductase nausea Inhibitor] Opioids - Morphine Analogues AdvReac Mild N/V Verified 07/09/24 08:25 [OPIOIDS - MORPHINE ANALOGUES] Patient History Medical History Dementia Infarction of left basal ganglia Essential hypertension Hypertensive urgency Anxiety Migraines Measles Chicken pox Vertigo Recurrent sinusitis Surgical History Status post breast biopsy History of tonsillectomy Family History Mother Memory impairment Father of unknown cause Social History household members: spouse and children Smoking Status: Never smoker alcohol intake: never Smoking Status: Never smoker alcohol intake frequency: 0-2 drinks per day Exam Initial Vital Signs Initial Vital Signs: Vital Signs Temperature 98.7 F 07/09/24 08:33 Pulse Rate 92 H 07/09/24 08:33 Respiratory Rate 21 07/09/24 08:33 Blood Pressure 174/83 H 07/09/24 08:33 Pulse Oximetry 96 07/09/24 08:33 Oxygen Delivery Method Room Air 07/09/24 08:33 GENERAL: Alert 78-year-old female does not appear in acute distress HEENT: Head atraumatic,EOMI, pupils reactive, face symmetric, moist mucous membranes CARDIOVASCULAR: Regular rate and rhythm without murmurs, rubs or gallops. RESPIRATORY: Breath sounds equal bilaterally, no wheezes rales or rhonchi. ABDOMEN: Soft, nontender. Normoactive bowel sounds all 4 quadrants. No guarding or rebound. EXTREMITIES: Normal range of motion, no clubbing or edema. Neurovascularly intact NEUROLOGICAL: Farm Operations Technical Director strength equal bilaterally no facial droop, does not move lower extremities SKIN: Warm, dry, no laceration, no petechiae, no rashes or lesions. Course Orders Ordered: ED Orders 07/09/24 08:10 Complete Blood Count AUTO DIFF Stat Comprehensive Metabolic Panel Stat Lactate (Lactic Acid) Stat Lipase Stat PTT Partial Thromboplastin Hugo Stat Procalcitonin Stat Prothrombin Time INR Stat 07/09/24 08:30 Urinalysis and Microscopic Stat Urine Culture Stat 07/09/24 08:36 Covid-19 + FLU A/B + RSV - PCR Stat 07/09/24 08:43 XR chest 1V Stat EKG-12 Lead Stat RT Consult Eval and Treat NOW 07/09/24 09:07 CT head/brain wo con Stat 07/09/24 09:10 Blood Culture Stat Discontinued Medications Sodium Chloride (Normal Saline 0.9%) 1,000 mls @ 1,000 mls/hr IV BOLUS ONE Stop: 07/09/24 09:42 Last Infusion: 07/09/24 11:03 Dose: Infused Documented By: Admin: 07/09/24 09:09 Dose: 1,000 mls/hr Documented By: Ceftriaxone Sodium 1,000 mg/ (Sodium Chloride) 100 mls @ 200 mls/hr IV NOW ONE Stop: 07/09/24 09:08 Last Infusion: 07/09/24 10:09 Dose: Infused Documented By: Admin: 07/09/24 09:33 Dose: 200 mls/hr Documented By: Azithromycin 500 mg/ Dextrose 250 mls @ 250 mls/hr IV NOW ONE Stop: 07/09/24 09:46 Last Infusion: 07/09/24 11:03 Dose: Infused Documented By: Admin: 07/09/24 09:53 Dose: 250 mls/hr Documented By: Ondansetron HCl (Ondansetron 4 Mg/2 Ml Inj) 4 mg IV NOW PRN PRN Reason: Nausea And Vomiting Ondansetron HCl (Ondansetron 4 Mg Odt) 4 mg SL NOW PRN PRN Reason: Nausea And Vomiting Vital Signs Vital signs: Vital Signs - 8 hr 07/09/24 08:33 07/09/24 08:33 07/09/24 09:00 Temperature 98.7 F Pulse Rate 92 H 93 H Respiratory Rate 21 25 H Blood Pressure 174/83 H 161/77 H Pulse Oximetry 96 96 Oxygen Delivery Method Room Air 07/09/24 09:00 07/09/24 09:19 07/09/24 09:19 Temperature Pulse Rate 84 98 H Respiratory Rate 27 H 28 H Blood Pressure 166/85 H Pulse Oximetry 96 96 Oxygen Delivery Method Room Air 07/09/24 09:30 07/09/24 09:30 07/09/24 10:00 Temperature Pulse Rate 89 78 Respiratory Rate 17 17 Blood Pressure 163/77 H Pulse Oximetry 96 97 Oxygen Delivery Method 07/09/24 10:00 07/09/24 10:30 07/09/24 10:30 Temperature Pulse Rate 102 H Respiratory Rate 22 Blood Pressure 173/79 H 159/80 H Pulse Oximetry 97 Oxygen Delivery Method 07/09/24 11:00 07/09/24 11:00 07/09/24 11:16 Temperature Pulse Rate 90 Respiratory Rate 17 Blood Pressure 164/77 H 188/95 H Pulse Oximetry 97 Oxygen Delivery Method 07/09/24 11:16 07/09/24 11:30 07/09/24 11:30 Temperature Pulse Rate 96 H 92 H Respiratory Rate 21 17 Blood Pressure 171/83 H Pulse Oximetry 98 99 Oxygen Delivery Method 07/09/24 12:00 07/09/24 12:00 Temperature 99.4 F Pulse Rate 97 H Respiratory Rate 23 Blood Pressure 169/92 H Pulse Oximetry 96 Oxygen Delivery Method MDM - Altered Mental Status Lab Data 07/09/24 08:10 07/09/24 08:10 Labs: Lab Results 07/09/24 07/09/24 07/09/24 Range/Units 08:10 08:30 08:36 WBC 9.3 (4.5-11.0) X10^3/uL RBC 4.25 (4.0-5.2) X10^6/uL Hgb 14.0 (12.0-16.0) g/dL Hct 41.1 (36-46) % MCV 96.6 (80-100) fL MCH 32.9 (26-34) PG MCHC 34.1 (30-36) % RDW 12.6 (11.6-14.8) % Plt Count 206 (150-400) X10^3/uL Neut % (Auto) 85.1 H (50-75) % Lymph % (Auto) 5.3 L (25-40) % Collier % (Auto) 9.1 (3-14) % Eos % (Auto) 0.0 L (2-4) % Baso % (Auto) 0.5 (0-2) % Neut # (Auto) 7900 H (0815-2811) /uL Lymph # (Auto) 500 L (1954-7601) /uL Collier # (Auto) 800 (0-900) /uL Eos # (Auto) 0 (0-450) /uL Baso # (Auto) 0 (0-100) /uL PT 12.3 (9.4-12.5) SECONDS INR 1.1 (0.9-1.3) APTT 33 (25.1-36.5) SECONDS Sodium 138 (137-145) mmol/L Potassium 3.8 (3.4-5.1) mmol/L Chloride 101 (98-107) mmol/L Carbon Dioxide 31 (22-32) mmol/L BUN 13 (7-17) mg/dL Creatinine 0.65 (0.52-1.04) mg/dL Estimated GFR > 60 (>60) mL/min BUN/Creatinine Ratio 20.0 (6-22) Glucose 151 H (80-110) mg/dL Lactate 1.0 (0.7-2.1) mmol/L Calcium 9.5 (8.4-10.2) mg/dL Total Bilirubin 0.8 (0.2-1.3) mg/dL AST 28 (14-36) IU/L ALT 15 (<35) IU/L Alkaline Phosphatase 92 (38-126) U/L Total Protein 7.8 (6.3-8.2) g/dL Albumin 4.3 (3.5-5.0) g/dL Globulin 3.5 (1.7-4.1) g/dL Albumin/Globulin Ratio 1.2 (1.0-2.8) Lipase 46 (23-300) U/L Procalcitonin 0.048 (<0.5) ng/mL Urine Color Yellow Urine Appearance Sl cloudy Urine pH 7.0 (4.5-8.0) Ur Specific [place] 1.010 (1.000-1.035) Urine Protein Negative (Negative) Urine Glucose (UA) Negative (Negative) g/dL Urine Ketones Negative (NEGATIVE) Urine Occult Blood Negative (Negative) Urine Nitrate Negative (Negative) Urine Bilirubin Negative (NEGATIVE) Urine Urobilinogen 0.2 (0.2) E.U./dL Ur Leukocyte Esterase 1+ H (NEGATIVE) Urine RBC None seen (0-5/HPF) Urine WBC 5-10/hpf H (0-5/HPF) Ur Squamous Epith Cells None seen (0-5/HPF) Urine Bacteria Many (>30) H (None) Ur Culture Indicated? Specimen cultured Vol Urine Centrifuged 10ml (spun) SARS-CoV-2 (PCR) Negative (Negative) Influenza A (RT-PCR) Flu a negative (NEGATIVE) Influenza B (RT-PCR) Flu b negative (NEGATIVE) RSV (PCR) Positive A (Negative) Imaging Data Chest x-ray: Radiologist's Impression: PROCEDURE: XR CHEST 1V INDICATIONS: suspected sepsis TECHNIQUE: One view of the chest was acquired. COMPARISON: Located Within [facility], CR, XR CHEST 1V, 07/01/2020, 14:25. FINDINGS: Surgical changes and devices: None. Lungs and pleura: Small focal pneumonia, right lung base. No pleural effusions or pneumothorax. Mediastinum: Mediastinal contours appear normal. Heart size is normal. Bones and chest wall: No suspicious bony lesions. Overlying soft tissues appear unremarkable. IMPRESSION: Small focal pneumonia, right lung base. Dictated by: Jordon Hays M.D. on 07/09/2024 at 9:21 CT scan - head: Radiologist's Impression: PROCEDURE: CT HEAD/BRAIN WO CON INDICATIONS: altered mental status TECHNIQUE: Noncontrast 4.5 mm thick angled axial sections acquired from the foramen magnum to the vertex, with coronal and sagittal reformats. For radiation dose reduction, the following was used: automated exposure control, adjustment of mA and/or kV according to patient size. COMPARISON: Located Within [facility], CT, CT HEAD/BRAIN WO CON, 12/02/2023, 20:27. FINDINGS: Image quality: Diagnostic. CSF spaces: Basal cisterns are patent. No extra-axial fluid collections. The ventricles are symmetric in size and shape. Brain: No intracranial bleeds or masses. There is cerebral volume loss for age, with resultant ventricular and sulcal prominence. There are moderate to severe periventricular and deep white matter chronic small vessel ischemic changes. Old periventricular deep white matter lacunar infarction on the left extending to the body of caudate. There is intracranial internal carotid artery atherosclerosis. Skull and face: Calvarium and visualized facial bones appear intact, without suspicious lesions. Sinuses: Visualized sinuses and mastoids are clear. IMPRESSION: No acute intracranial pathology. Small vessel ischemic change, old lacunar infarction Dictated by: Jordon Hays M.D. on 07/09/2024 at 9:47 ECG Data Attestation: I personally reviewed and interpreted this ECG as follows: Interpretation: artifact noted sinus rhythm normal sinus rhythm rate 97 incomplete right bundle-branch no obvious ischemia. 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 Pertinent findings: CBC no leukocytosis or anemia WBCs 9 3 hemoglobin 14 hematocrit 41 CMP no electrolyte abnormality no evidence of dehydration or ARABELLA glucose 151 Lactate 1.0, procalcitonin 0.048 Bilirubin liver enzymes within normal limits Troponin negative Urinalysis positive for bacteria and leukocytes Respiratory panel positive for RSV Independently reviewed EKG as above Sinus rhythm artifact noted right bundle-branch block noted Imaging studies independently reviewed: Chest x-ray does show possible pneumonia right lung base Head CT shows chronic ischemic changes with old lacunar infarct Consultations: none Treatments: Rocephin azithromycin IV fluids Re-evaluations: Patient was able to ambulate it is clear that she was weak she has not requiring oxygen. At this time blood work is overall reassuring does not meet admission criteria at this time. Discussion: Patient 78-year-old female history of dementia she does not ambulate at baseline but has had an abrupt change in altered mental status. She was found to be positive for RSV with possible pneumonia. She was not appear septic she has no leukocytosis and normal lactate vitals are stable not requiring oxygen. Son notified that patient will be returning to [facility] care. Discharge Plan Departure Patient Disposition: Home Clinical Impression: Respiratory syncytial virus (RSV) infection, Pneumonia Instructions: DI for Pneumonia -- Adult, DI for Respiratory Syncytial Virus -- Adults Activity Restrictions/Additional Instructions: *You have been diagnosed with RSV and pneumonia *What to do: At this time continue hydration. Blood work is overall reassuring. *Continue to take medications as directed --> sent to [facility] [place] Amoxicillin 1000 mg 3 times a day for 5 days Azithromycin take as directed *Follow up with your primary care provider in 2-3 days or call [phone] *Return to ER if you should have increasing weakness confusion not drinking fluids increasing shortness of breath or any new, worsening or concerning symptoms Prescriptions: New amoxicillin 500 mg capsule 1,000 mg PO TID 5 Days Qty: 30 0RF azithromycin 250 mg tablet See Rx Instructions PO .COMPLEX Qty: 6 0RF Rx Instructions: For 250 mg dose pack: take 500 mg today (day 1), then 250 mg for 4 days (days 2-5) No Action aspirin 81 mg tablet,delayed release (DR/EC) 81 mg PO DAILY Qty: 90 3RF atorvastatin 40 mg tablet 40 mg PO BEDTIME Qty: 90 3RF carvedilol 12.5 mg tablet 12.5 mg PO BID Qty: 180 3RF clopidogrel 75 mg tablet 75 mg PO DAILY Qty: 90 3RF trazodone 50 mg tablet 50 mg PO BEDTIME Qty: 30 5RF losartan 25 mg tablet 25 mg PO BID Qty: 180 3RF sertraline 50 mg tablet 50 mg PO DAILY Qty: 90 3RF donepezil 10 mg tablet 10 mg PO BEDTIME Qty: 90 3RF sennosides [senna] 8.6 mg Tablet 8.6 mg PO BID PRN (Reason: Constipation) Qty: 90 0RF acetaminophen 325 mg Tablet 650 mg PO Q6H PRN (Reason: Fever/Mild Pain (1-3)) Qty: 30 0RF haloperidol 5 mg Tablet 5 mg PO Q4HR PRN (Reason: Agitation) Qty: 30 0RF polyethylene glycol 3350 17 gram Powder In Packet 17 gm PO DAILY PRN (Reason: Constipation) Qty: 30 0RF hydrocodone-acetaminophen 5-325 mg Tablet 1 tab PO Q4HR PRN (Reason: Pain, Moderate (4-6)) Qty: 20 0RF divalproex 125 mg Capsule, Delayed Rel Sprinkle 125 mg PO TID Qty: 90 0RF quetiapine 50 mg tablet 50 mg PO TID@0900,1500,1800 Qty: 270 0RF quetiapine 50 mg tablet 50 mg PO BEDTIME Qty: 90 0RF donepezil 5 mg tablet 5 mg PO ONCE PM sertraline 25 mg tablet 25 mg PO DAILY Referrals: Nehemias Velázquez, [Primary Care Provider] - Stand Alone Forms: Patient Portal/API/Survey
--- NOTE | 2024-07-09 09:07 | DI.CT.S_ITS ---
PROCEDURE: CT HEAD/BRAIN WO CON INDICATIONS: altered mental status TECHNIQUE: Noncontrast 4.5 mm thick angled axial sections acquired from the foramen magnum to the vertex, with coronal and sagittal reformats. For radiation dose reduction, the following was used: automated exposure control, adjustment of mA and/or kV according to patient size. COMPARISON: [facility], CT, CT HEAD/BRAIN WO CON, 12/02/2023, 20:27. FINDINGS: Image quality: Diagnostic. CSF spaces: Basal cisterns are patent. No extra-axial fluid collections. The ventricles are symmetric in size and shape. Brain: No intracranial bleeds or masses. There is cerebral volume loss for age, with resultant ventricular and sulcal prominence. There are moderate to severe periventricular and deep white matter chronic small vessel ischemic changes. Old periventricular deep white matter lacunar infarction on the left extending to the body of caudate. There is intracranial internal carotid artery atherosclerosis. Skull and face: Calvarium and visualized facial bones appear intact, without suspicious lesions. Sinuses: Visualized sinuses and mastoids are clear. IMPRESSION: No acute intracranial pathology. Small vessel ischemic change, old lacunar infarction Dictated by: Jordon Hays M.D. on 07/09/2024 at 9:47 Approved by: Jordon Hays M.D. on 07/09/2024 at 9:49
[2024-07-09] MEDS: SODIUM CHLORIDE 0.9% 1,000 ML 1000 ML IV (09:09)
[2024-07-09 09:13] LABS: Procalcitonin 0.048 ng/mL (<0.5)
[2024-07-09 09:32] LABS: Influenza A - CEPHEID Flu A NEGATIVE (NEGATIVE); Influenza B - CEPHEID Flu B NEGATIVE (NEGATIVE); Respiratory Syncytial Virus POSITIVE (Negative)
[2024-07-09] MEDS: cefTRIAXone 1,000 MG in SODIUM CHLORIDE 0.9% 100 ML 200 MG IV (09:33)
[2024-07-09 09:38] LABS: COVID-19 CEPHEID 4-PLEX PCR Negative (Negative)
[2024-07-09] MEDS: AZITHROMYCIN 500 MG in DEXTROSE 5% IN WATER 250 ML 250 MG IV (09:53)
--- NOTE | 2024-07-09 11:16 | PC.NURSE ---
Pt up ambulating in [place] with two assist and gait belt. Pt is shaky and unsteady.
== END 2024-07-09 12:20 | disposition home or self-care (01) ==
PROVIDERS: Emergency Provider Emergency Medicine; Family Provider Student in an Organized Health Care Education/Training Program; PCP Family Medicine
DX: J12.1 Respiratory syncytial virus pneumonia (principal); F03.90 Unspecified dementia, unspecified severity, without behavioral disturbance, psychotic disturbance, mood disturbance, and anxiety; I10 Essential (primary) hypertension; Z86.73 Personal history of transient ischemic attack (TIA), and cerebral infarction without residual deficits; Z87.440 Personal history of urinary (tract) infections
CPT/HCPCS: 0241U; 36415; 51701; 70450; 71045; 80053; 81001; 83605; 83690; 84145; 85025; 85610; 85730; 87040; 87077; 87086; 87186; 93005; 96365; 96367; 99284; J0696

== ENCOUNTER 2024-10-24 15:41 | Emergency (ER) | payer MEDICARE, OTHER, SELFPAY ==
[2024-10-24] VITALS (13 sets, daily range): BP systolic 123–208; BP diastolic 67–96; PULSE 66–106; RESP 18–22; TEMP 36.6; O2SAT 92–97
--- NOTE | 2024-10-24 15:51 | DI.RAD.S_ITS ---
PROCEDURE: XR SHOULDER LT MIN 2V INDICATIONS: fall, deformity TECHNIQUE: 4 views of the shoulder were acquired. COMPARISON: [facility], CR, XR CHEST 1V, 07/09/2024, 8:43. FINDINGS: Bones: There is an impacted, comminuted fracture of the left humeral head and neck. No clavicle fracture is seen. No fracture of the scapula is seen. The visualized ribs appear intact. Soft tissues: No suspicious soft tissue calcifications. The visualized lung demonstrates an unremarkable appearance. IMPRESSION: Impacted, comminuted fracture of the left humeral head and neck. Dictated by: Bay Huynh M.D. on 10/24/2024 at 15:39 Approved by: Bay Huynh M.D. on 10/24/2024 at 15:40
[2024-10-24] MEDS: HYDROMORPHONE 1 MG INJ IV (15:57)
--- NOTE | 2024-10-24 16:02 | PC.NURSE ---
Karthik called and updated on pt's arrival.
--- NOTE | 2024-10-24 16:21 | ED_ITS ---
HPI - Extremity Injury (Upper) <Anat Mynorangel, DO - Last Filed: 10/25/24 09:35> General Chief Complaint: Extremity Injury, Upper Stated Complaint: GLF, LEFT shoulder pain Time Seen by Provider: 10/24/24 16:13 Source: EMS Mode of arrival: EMS History of Present Illness HPI narrative: Patient is a 78-year-old female history of dementia anxiety hypertension prior stroke presenting to day with left shoulder pain. She was here with family. They report that they spent the morning and day with her for mother's day she was in her normal state of health. She was then found on the ground shortly after they left. Suspect a mechanical trip and fall but it was unwitnessed. Complaining of left shoulder pain. Received fentanyl prior to arrival with EMS but still having pain. No obvious head injury she does take aspirin. She is currently enrolled in hospice and is comfort measures only. Related Data Home Medications Medication Instructions Recorded Confirmed donepezil 5 mg tablet 5 mg PO ONCE PM 12/25/23 sertraline 25 mg tablet 25 mg PO DAILY 12/25/23 Previous Rx's Medication Instructions Recorded aspirin 81 mg tablet,delayed 81 mg PO DAILY #90 tabs 09/23/22 release atorvastatin 40 mg tablet 40 mg PO BEDTIME #90 tabs 08/27/23 carvedilol 12.5 mg tablet 12.5 mg PO BID #180 tabs 08/27/23 clopidogrel 75 mg tablet 75 mg PO DAILY #90 tabs 08/27/23 trazodone 50 mg tablet 50 mg PO BEDTIME #30 tabs 09/26/23 donepezil 10 mg tablet 10 mg PO BEDTIME #90 tabs 11/04/23 losartan 25 mg tablet 25 mg PO BID #180 tabs 11/04/23 sertraline 50 mg tablet 50 mg PO DAILY #90 tabs 11/04/23 acetaminophen 325 mg tablet 650 mg (2 x 325 mg) PO Q6H PRN 12/25/23 Fever/Mild Pain (1-3) #30 tabs divalproex 125 mg capsule,delayed 125 mg PO TID #90 caps 12/25/23 release sprinkle haloperidol 5 mg tablet 5 mg PO Q4HR PRN Agitation #30 tabs 12/25/23 hydrocodone 5 mg-acetaminophen 325 1 tab PO Q4HR PRN Pain, Moderate 12/25/23 mg tablet (4-6) #20 tabs polyethylene glycol 3350 17 gram 17 gm PO DAILY PRN Constipation 12/25/23 oral powder packet #30 ea quetiapine 50 mg tablet 50 mg PO BEDTIME #90 tabs 12/25/23 quetiapine 50 mg tablet 50 mg PO TID@0900,1500,1800 #270 12/25/23 tabs sennosides 8.6 mg tablet (senna) 8.6 mg PO BID PRN Constipation #90 12/25/23 tabs azithromycin 250 mg tablet See Rx Instructions PO .COMPLEX #6 07/09/24 tabs hydrocodone 5 mg-acetaminophen 325 1 tab PO Q6H PRN pain #10 tabs 10/24/24 mg tablet Allergies Allergy/AdvReac Type Severity Reaction Status Date / Time Keohsna-WWP-QcG Reductase AdvReac Intermediate muscle Verified 10/24/24 15:50 Inhibitor pain, [Aoaupfw-Asb-Jav Reductase nausea Inhibitor] Opioids - Morphine Analogues AdvReac Mild N/V Verified 10/24/24 15:50 [OPIOIDS - MORPHINE ANALOGUES] Patient History <Anat Mendoza DO - Last Filed: 10/25/24 09:35> Medical History Dementia Infarction of left basal ganglia Essential hypertension Hypertensive urgency Anxiety Migraines Measles Chicken pox Vertigo Recurrent sinusitis Surgical History Status post breast biopsy History of tonsillectomy Family History Mother Memory impairment Father of unknown cause Social History household members: spouse and children alcohol intake: never alcohol intake frequency: 0-2 drinks per day Exam <Anat Mendoza DO - Last Filed: 10/25/24 09:35> Initial Vital Signs Initial Vital Signs: Vital Signs Pulse Rate 94 H 10/24/24 15:45 Blood Pressure 208/96 H 10/24/24 15:45 Pulse Oximetry 95 10/24/24 15:45 GENERAL: Alert week 78-year-old female thin cachectic chronically ill HEENT: Head atraumatic,EOMI, pupils reactive, face symmetric, moist mucous membranes CARDIOVASCULAR: Regular rate and rhythm without murmurs, rubs or gallops. RESPIRATORY: Breath sounds equal bilaterally, no wheezes rales or rhonchi. ABDOMEN: Soft, nontender. Normoactive bowel sounds all 4 quadrants. No guarding or rebound. EXTREMITIES: Normal range of motion, no clubbing or edema. Neurovascularly intact. Left shoulder slight deformity tender to touch sensation intact over deltoid distal radial pulse intact NEUROLOGICAL: Minimally responsive to pain SKIN: Warm, dry, no laceration, no petechiae, no rashes or lesions. <Jessee Nichols MD - Last Filed: 10/24/24 22:32> Initial Vital Signs Initial Vital Signs: Vital Signs Pulse Rate 94 H 10/24/24 15:45 Blood Pressure 208/96 H 10/24/24 15:45 Pulse Oximetry 95 10/24/24 15:45 Course <Anat Mendoza DO - Last Filed: 10/25/24 09:35> Orders Ordered: Discontinued Medications Hydrocodone Bitart/Acetaminophen (Hydrocodone/Acet 5/325 Tablet) 1 tab PO NOW ONE Stop: 10/24/24 18:09 Last Admin: 10/24/24 18:13 Dose: 1 tab Documented By: COREY Hydrocodone Bitart/Acetaminophen (Hydrocodone/Acet 5/325 Prepack) 1 bottle MISC DIRECTED ONE Stop: 10/24/24 21:05 Last Admin: 10/24/24 21:28 Dose: 1 bottle Documented By: JOSH Hydromorphone HCl (Hydromorphone 1 Mg Inj) 1 mg IV NOW ONE Stop: 10/24/24 15:54 Last Admin: 10/24/24 15:57 Dose: 1 mg Documented By: DI Hydromorphone HCl (Hydromorphone 0.5 Mg Inj) 0.5 mg IV NOW ONE Stop: 10/24/24 18:40 Last Admin: 10/24/24 19:00 Dose: 0.5 mg Documented By: COREY Ketorolac Tromethamine (Ketorolac 30 Mg/Ml Vial) 15 mg IV NOW ONE Stop: 10/24/24 18:40 Last Admin: 10/24/24 18:58 Dose: 15 mg Documented By: COREY Vital Signs Vital signs: Vital Signs - 8 hr 10/24/24 15:45 10/24/24 15:45 10/24/24 15:46 Temperature 97.9 F Pulse Rate 94 H 106 H Respiratory Rate 22 Blood Pressure 208/96 H 208/96 H Pulse Oximetry 95 96 Oxygen Delivery Method Room Air 10/24/24 16:00 10/24/24 16:28 10/24/24 16:28 Temperature Pulse Rate 69 Respiratory Rate Blood Pressure 176/77 H Pulse Oximetry 92 94 Oxygen Delivery Method 10/24/24 16:30 10/24/24 17:00 10/24/24 19:00 Temperature Pulse Rate 68 70 82 Respiratory Rate Blood Pressure 136/67 Pulse Oximetry 93 92 97 Oxygen Delivery Method 10/24/24 19:30 10/24/24 20:00 10/24/24 20:30 Temperature Pulse Rate 69 69 87 Respiratory Rate Blood Pressure Pulse Oximetry 92 93 94 Oxygen Delivery Method 10/24/24 20:56 10/24/24 20:56 10/24/24 20:59 Temperature Pulse Rate 70 82 Respiratory Rate Blood Pressure 135/74 Pulse Oximetry 93 93 Oxygen Delivery Method 10/24/24 21:30 10/24/24 21:30 Temperature Pulse Rate 66 Respiratory Rate 18 Blood Pressure 123/73 Pulse Oximetry 94 Oxygen Delivery Method <Jessee Nichols MD - Last Filed: 10/24/24 22:32> Orders Ordered: Discontinued Medications Hydrocodone Bitart/Acetaminophen (Hydrocodone/Acet 5/325 Tablet) 1 tab PO NOW ONE Stop: 10/24/24 18:09 Last Admin: 10/24/24 18:13 Dose: 1 tab Documented By: MPO Hydrocodone Bitart/Acetaminophen (Hydrocodone/Acet 5/325 Prepack) 1 bottle MISC DIRECTED ONE Stop: 10/24/24 21:05 Last Admin: 10/24/24 21:28 Dose: 1 bottle Documented By: RLC Hydromorphone HCl (Hydromorphone 1 Mg Inj) 1 mg IV NOW ONE Stop: 10/24/24 15:54 Last Admin: 10/24/24 15:57 Dose: 1 mg Documented By: DI Hydromorphone HCl (Hydromorphone 0.5 Mg Inj) 0.5 mg IV NOW ONE Stop: 10/24/24 18:40 Last Admin: 10/24/24 19:00 Dose: 0.5 mg Documented By: COREY Ketorolac Tromethamine (Ketorolac 30 Mg/Ml Vial) 15 mg IV NOW ONE Stop: 10/24/24 18:40 Last Admin: 10/24/24 18:58 Dose: 15 mg Documented By: COREY Vital Signs Vital signs: Vital Signs - 8 hr 10/24/24 15:45 10/24/24 15:45 10/24/24 15:46 Temperature 97.9 F Pulse Rate 94 H 106 H Respiratory Rate 22 Blood Pressure 208/96 H 208/96 H Pulse Oximetry 95 96 Oxygen Delivery Method Room Air 10/24/24 16:00 10/24/24 16:28 10/24/24 16:28 Temperature Pulse Rate 69 Respiratory Rate Blood Pressure 176/77 H Pulse Oximetry 92 94 Oxygen Delivery Method 10/24/24 16:30 10/24/24 17:00 10/24/24 19:00 Temperature Pulse Rate 68 70 82 Respiratory Rate Blood Pressure 136/67 Pulse Oximetry 93 92 97 Oxygen Delivery Method 10/24/24 19:30 10/24/24 20:00 10/24/24 20:30 Temperature Pulse Rate 69 69 87 Respiratory Rate Blood Pressure Pulse Oximetry 92 93 94 Oxygen Delivery Method 10/24/24 20:56 10/24/24 20:56 10/24/24 20:59 Temperature Pulse Rate 70 82 Respiratory Rate Blood Pressure 135/74 Pulse Oximetry 93 93 Oxygen Delivery Method 10/24/24 21:30 10/24/24 21:30 Temperature Pulse Rate 66 Respiratory Rate 18 Blood Pressure 123/73 Pulse Oximetry 94 Oxygen Delivery Method MDM - Extremity Injury (Upper) <Anat Mendoza, DO - Last Filed: 10/25/24 09:35> Imaging Data Extremity x-ray #1: Radiologist's Impression: PROCEDURE: XR SHOULDER LT MIN 2V INDICATIONS: fall, deformity TECHNIQUE: 4 views of the shoulder were acquired. COMPARISON: [facility], CR, XR CHEST 1V, 07/09/2024, 8:43. FINDINGS: Bones: There is an impacted, comminuted fracture of the left humeral head and neck. No clavicle fracture is seen. No fracture of the scapula is seen. The visualized ribs appear intact. Soft tissues: No suspicious soft tissue calcifications. The visualized lung demonstrates an unremarkable appearance. IMPRESSION: Impacted, comminuted fracture of the left humeral head and neck. Dictated by: Bay Huynh M.D. on 10/24/2024 at 15:39 Approved by: Bay Huynh M.D. on 10/24/2024 at 15:4 [facility] Narrative Medical decision making narrative: Patient thais 78-year-old female currently enrolled in hospice presents as a mechanical ground level fall. She was with her family earlier today in her normal state of health without fever or confusion. Found down with left shoulder pain. No significant head injury or trauma. X-ray confirms impacted comminuted fracture of left humeral head. She was given Dilaudid prior to my evaluation and is quite somnolent now. She was placed in a sling. Still having pain an oral [place] Signed out to Dr. Nichols for disposition <Jessee Nichols MD - Last Filed: 10/24/24 22:32> [facility] Narrative Medical decision making narrative: Patient thais 78-year-old female currently enrolled in hospice presents as a mechanical ground level fall. She was with her family earlier today in her normal state of health without fever or confusion. Found down with left shoulder pain. No significant head injury or trauma. X-ray confirms impacted comminuted fracture of left humeral head. She was given Dilaudid prior to my evaluation and is quite somnolent now. She was placed in a sling. Still having pain an oral [place] Signed out to Dr. Nichols for disposition 10/24/24, 1830, Nichols. Sign-out from Dr. Mendoza. 78-year-old female on hospice, resident at nearby memory care unit, had family visit for mother's day today that was uneventful, subsequent departure of family, patient then found down at memory care unit, complaining of left shoulder pain, on x-ray in ED has impacted left humeral neck fracture. Given Dilaudid, seemed to transiently help, now having more pain, Toradol prescribed, repeat dose IV Dilaudid. Assess for pain control, for disposition plan. Assumed care. Case discussed with Orthopedic surgery Dr. Lee, who can see patient in clinic as an outpatient, agrees with sling already placed. Case discussed with son Alexis, who we would like us to try outpatient management going over to the senior care for now. Patient seems to be comfortable, would not delineate whether or not she wants to go to the senior care with oral pain medication or be admitted to the hospital. Home pack hydrocodone. Discharge to adjacent [facility] facility. Follow up with Orthopedic surgery as an outpatient for now. Discharge Plan Departure Patient Disposition: Home Clinical Impression: Comminuted left humeral fracture Instructions: DI for Shoulder Fracture Activity Restrictions/Additional Instructions: *You have been diagnosed with left shoulder fracture *What to do: At this time keep in sling at all times may take off to bathe. May need to sleep upright lots of pills *Continue to take medications as directed [place] as needed for pain control *Follow up with your primary care provider in 2-3 days or call [phone] Follow up with Orthopedic *Return to ER if you should have increased pain not controlled with medication or any new, worsening or concerning symptoms Prescriptions: New hydrocodone-acetaminophen 5-325 mg tablet 1 tab PO Q6H PRN (Reason: pain) Qty: 10 0RF No Action aspirin 81 mg tablet,delayed release (DR/EC) 81 mg PO DAILY Qty: 90 3RF atorvastatin 40 mg tablet 40 mg PO BEDTIME Qty: 90 3RF carvedilol 12.5 mg tablet 12.5 mg PO BID Qty: 180 3RF clopidogrel 75 mg tablet 75 mg PO DAILY Qty: 90 3RF trazodone 50 mg tablet 50 mg PO BEDTIME Qty: 30 5RF losartan 25 mg tablet 25 mg PO BID Qty: 180 3RF sertraline 50 mg tablet 50 mg PO DAILY Qty: 90 3RF donepezil 10 mg tablet 10 mg PO BEDTIME Qty: 90 3RF sennosides [senna] 8.6 mg Tablet 8.6 mg PO BID PRN (Reason: Constipation) Qty: 90 0RF acetaminophen 325 mg Tablet 650 mg PO Q6H PRN (Reason: Fever/Mild Pain (1-3)) Qty: 30 0RF haloperidol 5 mg Tablet 5 mg PO Q4HR PRN (Reason: Agitation) Qty: 30 0RF polyethylene glycol 3350 17 gram Powder In Packet 17 gm PO DAILY PRN (Reason: Constipation) Qty: 30 0RF hydrocodone-acetaminophen 5-325 mg Tablet 1 tab PO Q4HR PRN (Reason: Pain, Moderate (4-6)) Qty: 20 0RF divalproex 125 mg Capsule, Delayed Rel Sprinkle 125 mg PO TID Qty: 90 0RF quetiapine 50 mg tablet 50 mg PO TID@0900,1500,1800 Qty: 270 0RF quetiapine 50 mg tablet 50 mg PO BEDTIME Qty: 90 0RF donepezil 5 mg tablet 5 mg PO ONCE PM sertraline 25 mg tablet 25 mg PO DAILY azithromycin 250 mg tablet See Rx Instructions PO .COMPLEX Qty: 6 0RF Rx Instructions: For 250 mg dose pack: take 500 mg today (day 1), then 250 mg for 4 days (days 2-5) Referrals: [facility] [Provider Group] [facility] [Provider Group] Nehemias Velázquez DO [Primary Care Provider] - Megan Lee MD [Physician] - Stand Alone Forms: Patient Portal/API/Survey
--- NOTE | 2024-10-24 16:29 | PC.NURSE ---
Family at bedside and state that pt is normally alert and ambulatory at baseline. reports that he was visiting with her earlier and pt was at baseline and walking around facility. Facilty called shortly after he left and reported glf fall. Pt given 100mcg fent en route and 1mg dilaudid upon arrival to ED. Pt arousable to sound and light touch, but sleepy. Family at bedside.
--- NOTE | 2024-10-24 17:08 | PC.NURSE ---
Sling applied to left arm. Pt tolerated well. Pt brief checked. Clean and dry.
[2024-10-24] MEDS: HYDROCODONE/ACET 5/325 TABLET 1 TAB PO (18:13)
[2024-10-24] MEDS: KETOROLAC 30 MG/ML VIAL 15 MG IV (18:58)
[2024-10-24] MEDS: HYDROMORPHONE 0.5 MG INJ IV (19:00)
[2024-10-24] MEDS: HYDROCODONE/ACET 5/325 PREPACK 1 BOTTLE MISC (21:28)
== END 2024-10-24 22:00 | disposition home or self-care (01) ==
PROVIDERS: Emergency Provider Emergency Medicine; PCP Family Medicine
DX: S42.292A Other displaced fracture of upper end of left humerus, initial encounter for closed fracture (principal); W18.30XA Fall on same level, unspecified, initial encounter
CPT/HCPCS: 73030; 96374; 96375; 96376; 99284; J1171; J1885

== ENCOUNTER 2024-10-28 20:17 | Emergency (ER) | payer MEDICARE, OTHER, SELFPAY ==
[2024-10-28] VITALS (10 sets, daily range): BP systolic 142–173; BP diastolic 70–82; PULSE 65–84; RESP 16–18; TEMP 36.4; O2SAT 96–98
--- NOTE | 2024-10-29 00:31 | ED.RECABL ---
HPI - Recheck/Abnormal Lab/Rx General Chief Complaint: Recheck/Abnormal Lab/Rx Stated Complaint: left shoulder pain x3days Time Seen by Provider: 10/29/24 00:31 Source: EMS Mode of arrival: EMS History of Present Illness HPI narrative: 78-year-old female with a past medical history of dementia, diabetes hypertension hyperlipidemia presenting from facility via EMS for evaluation of increased pain, patient was seen here 3 days ago was diagnosed with a humeral head fracture on the left side, sent in for uncontrolled pain, patient was discharged home on hydrocodone, according to medics they did give a proximally 25 mcg of fentanyl prior to arrival, time of evaluation patient had baseline, able to answer questions, she is currently in hospice/comfort care measures only. Patient currently at baseline able to answer yes no questions due to history of dementia additional ROS HPI limited secondary to patient's dementia Related Data Home Medications Medication Instructions Recorded Confirmed donepezil 5 mg tablet 5 mg PO ONCE PM 12/25/23 sertraline 25 mg tablet 25 mg PO DAILY 12/25/23 Previous Rx's Medication Instructions Recorded aspirin 81 mg tablet,delayed 81 mg PO DAILY #90 tabs 09/23/22 release atorvastatin 40 mg tablet 40 mg PO BEDTIME #90 tabs 08/27/23 carvedilol 12.5 mg tablet 12.5 mg PO BID #180 tabs 08/27/23 clopidogrel 75 mg tablet 75 mg PO DAILY #90 tabs 08/27/23 trazodone 50 mg tablet 50 mg PO BEDTIME #30 tabs 09/26/23 donepezil 10 mg tablet 10 mg PO BEDTIME #90 tabs 11/04/23 losartan 25 mg tablet 25 mg PO BID #180 tabs 11/04/23 sertraline 50 mg tablet 50 mg PO DAILY #90 tabs 11/04/23 acetaminophen 325 mg tablet 650 mg (2 x 325 mg) PO Q6H PRN 12/25/23 Fever/Mild Pain (1-3) #30 tabs divalproex 125 mg capsule,delayed 125 mg PO TID #90 caps 12/25/23 release sprinkle haloperidol 5 mg tablet 5 mg PO Q4HR PRN Agitation #30 tabs 12/25/23 hydrocodone 5 mg-acetaminophen 325 1 tab PO Q4HR PRN Pain, Moderate 12/25/23 mg tablet (4-6) #20 tabs polyethylene glycol 3350 17 gram 17 gm PO DAILY PRN Constipation 12/25/23 oral powder packet #30 ea quetiapine 50 mg tablet 50 mg PO BEDTIME #90 tabs 12/25/23 quetiapine 50 mg tablet 50 mg PO TID@0900,1500,1800 #270 12/25/23 tabs sennosides 8.6 mg tablet (senna) 8.6 mg PO BID PRN Constipation #90 12/25/23 tabs azithromycin 250 mg tablet See Rx Instructions PO .COMPLEX #6 07/09/24 tabs hydrocodone 5 mg-acetaminophen 325 1 tab PO Q6H PRN pain #10 tabs 10/24/24 mg tablet Allergies Allergy/AdvReac Type Severity Reaction Status Date / Time [id number] Reductase AdvReac Intermediate muscle Verified 10/24/24 15:50 Inhibitor pain, [Ipbslyy-Bwv-Dhe Reductase nausea Inhibitor] Opioids - Morphine Analogues AdvReac Mild N/V Verified 10/24/24 15:50 [OPIOIDS - MORPHINE ANALOGUES] Review of Systems Review of Systems ROS Unobtainable: Unobtainable due to medical condition and Other (Dementia) Patient History Medical History Dementia Infarction of left basal ganglia Essential hypertension Hypertensive urgency Anxiety Migraines Measles Chicken pox Vertigo Recurrent sinusitis Surgical History Status post breast biopsy History of tonsillectomy Family History Mother Memory impairment Father of unknown cause Social History household members: spouse and children alcohol intake: never alcohol intake frequency: 0-2 drinks per day Exam Narrative Exam Narrative: General: Elderly, frail, HEENT: Normocephalic, atraumatic, PERRLA, normal sclera, eyelids normal Neck: Active full range of motion, atraumatic Chest: Normal to inspection, negative crepitus, no overlying erythema ecchymosis Respiratory: Normal respiratory effort, not in acute respiratory distress, clear to auscultation bilaterally negative cough, wheeze, tachypnea, rhonchi, rales Cardiology: Regular rate rhythm negative gallop, murmur, rubs GI/: No tenderness to palpation, soft, non rigid, normal to inspection, exam deferred MSK: Patient with arm in sling to the left upper extremity, decreased range of motion secondary to pain but neurovascularly intact Skin: No rashes or lesions noted Neuro: Patient baseline history of dementia intermittent alert to place Psych: Cooperative, negative suicidal or homicidal ideations Initial Vital Signs Initial Vital Signs: Vital Signs Pulse Rate 74 10/28/24 20:22 Pulse Oximetry 97 10/28/24 20:22 Course Orders Ordered: Discontinued Medications Hydromorphone HCl (Hydromorphone 1 Mg Inj) 1 mg IV NOW ONE Stop: 10/29/24 00:38 Last Admin: 10/29/24 00:46 Dose: 1 mg Documented By: JOAQUÍN Vital Signs Vital signs: Vital Signs - 8 hr 10/28/24 20:22 10/28/24 20:25 10/28/24 20:30 Temperature 97.6 F Pulse Rate 74 79 72 Respiratory Rate 16 Blood Pressure 173/82 H Pulse Oximetry 97 98 97 Oxygen Delivery Method Room Air 10/28/24 21:00 10/28/24 21:30 10/28/24 22:00 Temperature Pulse Rate 68 69 67 Respiratory Rate 18 Blood Pressure Pulse Oximetry 97 96 97 Oxygen Delivery Method 10/28/24 22:30 10/28/24 23:00 10/28/24 23:07 Temperature Pulse Rate 65 84 Respiratory Rate Blood Pressure 169/81 H Pulse Oximetry 97 98 Oxygen Delivery Method 10/28/24 23:07 10/28/24 23:30 10/28/24 23:30 Temperature Pulse Rate 80 72 Respiratory Rate 18 Blood Pressure 142/70 H Pulse Oximetry 98 96 Oxygen Delivery Method 10/29/24 00:48 10/29/24 00:48 10/29/24 01:00 Temperature Pulse Rate 81 73 Respiratory Rate Blood Pressure 188/87 H Pulse Oximetry 93 91 Oxygen Delivery Method 10/29/24 01:00 Temperature Pulse Rate Respiratory Rate 18 Blood Pressure 168/79 H Pulse Oximetry Oxygen Delivery Method MDM - Recheck/Abnormal Lab/Rx Differential Diagnosis Differential diagnosis: Likely encounter for medication refill and other (Pain management) MDM Narrative Medical decision making narrative: 78-year-old female with a past medical history of dementia, diabetes hypertension hyperlipidemia presenting from facility via EMS for evaluation of increased pain, patient was seen here 3 days ago was diagnosed with a humeral head fracture on the left side, sent in for uncontrolled pain, patient was discharged home on hydrocodone, according to medics they did give a proximally 25 mcg of fentanyl prior to arrival, time of evaluation patient had baseline, able to answer questions, she is currently in hospice/comfort care measures only, at time of evaluation patient with in properly placed sling, this was changed did appear to provide relief to the patient, she is neurovascularly intact of the upper extremity, patient is at baseline is able to answer yes no questions, did provide mg of Dilaudid with improved symptoms, she will be discharged home with outpatient follow up. Records reviewed, patient had imaging performed on 10/24/24 showed a impacted comminuted fracture of left humeral head, she was discharged home in a sling after discussion with orthopedic surgery for outpatient follow up at that time patient did require multiple doses of IV Dilaudid Discharge Plan Departure Patient Disposition: Home Clinical Impression: Acute pain of left shoulder Activity Restrictions/Additional Instructions: Please follow up with your primary care doctor and orthopedic surgery for your scheduled appointment for your known humeral head fracture Please read the discharge instructions sheet carefully and bring all papers to all doctor follow-up visits, as it may contain information that your doctor may want to see. Disease processes change and evolve, if your symptoms worsen or if you develop any new symptoms that are concerning to you please return for evaluation. Your evaluation today does not show any evidence of any life-threatening/serious illnesses requiring admission to the hospital or surgery. Please follow-up with your doctor for re-evaluation in approximately 1 day. Seek immediate medical attention for any worrisome symptoms. *If you do not have a primary care provider please contact the [facility] Resource line at [phone]. They will ask some questions about your medical history and help get you set up with a doctor in the community. Prescriptions: No Action aspirin 81 mg tablet,delayed release (DR/EC) 81 mg PO DAILY Qty: 90 3RF atorvastatin 40 mg tablet 40 mg PO BEDTIME Qty: 90 3RF carvedilol 12.5 mg tablet 12.5 mg PO BID Qty: 180 3RF clopidogrel 75 mg tablet 75 mg PO DAILY Qty: 90 3RF trazodone 50 mg tablet 50 mg PO BEDTIME Qty: 30 5RF losartan 25 mg tablet 25 mg PO BID Qty: 180 3RF sertraline 50 mg tablet 50 mg PO DAILY Qty: 90 3RF donepezil 10 mg tablet 10 mg PO BEDTIME Qty: 90 3RF sennosides [senna] 8.6 mg Tablet 8.6 mg PO BID PRN (Reason: Constipation) Qty: 90 0RF acetaminophen 325 mg Tablet 650 mg PO Q6H PRN (Reason: Fever/Mild Pain (1-3)) Qty: 30 0RF haloperidol 5 mg Tablet 5 mg PO Q4HR PRN (Reason: Agitation) Qty: 30 0RF polyethylene glycol 3350 17 gram Powder In Packet 17 gm PO DAILY PRN (Reason: Constipation) Qty: 30 0RF hydrocodone-acetaminophen 5-325 mg Tablet 1 tab PO Q4HR PRN (Reason: Pain, Moderate (4-6)) Qty: 20 0RF divalproex 125 mg Capsule, Delayed Rel Sprinkle 125 mg PO TID Qty: 90 0RF quetiapine 50 mg tablet 50 mg PO TID@0900,1500,1800 Qty: 270 0RF quetiapine 50 mg tablet 50 mg PO BEDTIME Qty: 90 0RF donepezil 5 mg tablet 5 mg PO ONCE PM sertraline 25 mg tablet 25 mg PO DAILY azithromycin 250 mg tablet See Rx Instructions PO .COMPLEX Qty: 6 0RF Rx Instructions: For 250 mg dose pack: take 500 mg today (day 1), then 250 mg for 4 days (days 2-5) hydrocodone-acetaminophen 5-325 mg tablet 1 tab PO Q6H PRN (Reason: pain) Qty: 10 0RF Referrals: Nehemias Velázquez DO [Primary Care Provider] - Stand Alone Forms: Patient Portal/API/Survey
[2024-10-29] MEDS: HYDROMORPHONE 1 MG INJ IV (00:46)
[2024-10-29 00:48] VITALS: BP 188/87; PULSE 81; O2SAT 93
[2024-10-29 01:00] VITALS: BP 168/79; PULSE 73; RESP 18; O2SAT 91
[2024-10-29 01:30] VITALS: BP 150/86; PULSE 71; RESP 18; O2SAT 95
== END 2024-10-29 01:41 | disposition home or self-care (01) ==
PROVIDERS: Emergency Provider Student in an Organized Health Care Education/Training Program; PCP Family Medicine
DX: M25.512 Pain in left shoulder (principal); S42.292A Other displaced fracture of upper end of left humerus, initial encounter for closed fracture; X58.XXXA Exposure to other specified factors, initial encounter
CPT/HCPCS: 96374; 99283; 99284; J1171